=== PATIENT | female | born 1955 | race Caucasian/White ===

== ENCOUNTER 2016-08-05 08:25 | Inpatient (IN) | payer OTHER ==
[2016-06-13 13:14] VITALS: BMI 28.0
--- NOTE | 2016-06-13 13:44 | PAT Medication Instructions ---
Service Date June 13, 2016. Current Home Medication List Albuterol Hfa (Ventolin Hfa), 2-4 PUFFS INH Q6H Amlodipine Besylate-Benazepril (Amlodipine Besylate/Benaz), 1 CAP PO QAM Celecoxib (CeleBREX), 200 MG PO BID Duloxetine Hcl (Cymbalta), 90 MG PO QAM Estrogens, Conjugated (Premarin), 0.625 MG PO QAM Eszopiclone (Lunesta), 3 MG PO HS Hydrochlorothiazide (Hctz), 25 MG PO QAM Ipratropium-Albuterol (Combivent Respimat), 1 PUFFS INH QID PRN for PRN Melatonin (Melatonin Maximum Strengt), 20 MG PO HS Metformin Hcl (Glucophage), 1,000 MG PO BID Metoprolol Tartrate (Lopressor) (Lopressor), 50 MG PO BID Oxycodone/Acetaminophen 10MG/325MG (Percocet 10MG/325MG), 1 TAB PO 6XDAY PRN for Pain Pregabalin (Lyrica), 200 MG PO TID Simvastatin (Zocor), 20 MG PO QPM Tizanidine (Zanaflex), 4 MG PO TID PRN for RN [Vitamin B12], 50 MCG PO QAM Medication Instructions For Your Scheduled Surgery - Hold the following medications 48 hours prior to surgery: Metformin Hcl (Glucophage), 1,000 MG PO BID - Hold the following medications the morning of surgery: [Vitamin B12], 50 MCG PO QAM Hydrochlorothiazide (Hctz), 25 MG PO QAM Tizanidine (Zanaflex), 4 MG PO TID PRN Amlodipine Besylate-Benazepril (Amlodipine Besylate/Benaz), 1 CAP PO QAM Celecoxib (CeleBREX), 200 MG PO BID (otherwise okay to continue per surgeon) - Take the following medications the morning of surgery with a sip of water OTHERWISE NOTHING TO EAT OR DRINK AFTER MIDNIGHT: Albuterol Hfa (Ventolin Hfa), 2-4 PUFFS INH Q6H (use if needed; BRING TO HOSPITAL) Duloxetine Hcl (Cymbalta), 90 MG PO QAM Metoprolol Tartrate (Lopressor) (Lopressor), 50 MG PO BID Oxycodone/Acetaminophen 10MG/325MG (Percocet 10MG/325MG), 1 TAB PO 6XDAY PRN for Pain (may take if needed up to 4 hours prior to surgery) Estrogens, Conjugated (Premarin), 0.625 MG PO QAM Ipratropium-Albuterol (Combivent Respimat), 1 PUFFS INH QID PRN Pregabalin (Lyrica), 200 MG PO TID - Take the following medications as scheduled the night before surgery: Melatonin (Melatonin Maximum Strengt), 20 MG PO HS Simvastatin (Zocor), 20 MG PO QPM Eszopiclone (Lunesta), 3 MG PO HS Tizanidine (Zanaflex), 4 MG PO TID PRN Albuterol Hfa (Ventolin Hfa), 2-4 PUFFS INH Q6H Metoprolol Tartrate (Lopressor) (Lopressor), 50 MG PO BID Oxycodone/Acetaminophen 10MG/325MG (Percocet 10MG/325MG), 1 TAB PO 6XDAY PRN for Pain Ipratropium-Albuterol (Combivent Respimat), 1 PUFFS INH QID PRN Pregabalin (Lyrica), 200 MG PO TID If you have any questions please call us at [phone] or [phone] or [phone]
[2016-06-13 14:36] LABS: BASO % 0.5 %; BASO ABS # 0.04 K/uL (0-0.2); COMPLETE YES; EOS % 2.8 %; HEMATOCRIT 41.4 % (37-47); IG% 0.3 %; LYMPH % 43.1 %; LYMPH ABS # 3.27 K/uL (1.2-3.4); MEAN CELL VOLUME 94.5 fL (80-100); MEAN CORPUSCULAR HEMOGLOBIN 30.8 pg (25-34); MEAN CORPUSCULAR HGB CONC 32.6 g/dl (32-36); MONO % 5.3 %; PLATELET COUNT 276 K/uL (130-400); RED BLOOD COUNT 4.38 M/uL (4.2-5.4); WHITE BLOOD COUNT 7.59 K/uL (4.8-10.8)
[2016-06-13 14:43] LABS: INR 0.9 (0.9-1.1); PROTHROMBIN TIME (PATIENT) 10.1 SECONDS (9.0-12.0)
[2016-06-13 15:00] LABS: ESTIMATED AVERAGE GLUCOSE 140 mg/dl; HA1C FLAG Normal (Normal)
[2016-06-13 15:10] LABS: BUN/CREATININE RATIO 18.4 (10-20); CALCIUM 9.3 mg/dl (8.5-10.1); CREATININE 0.82 mg/dl (0.60-1.20); POTASSIUM 4.8 mmol/L (3.5-5.1)
--- NOTE | 2016-07-31 22:10 | HISTORY & PHYSICAL EXAMINATION ---
DATE OF ADMISSION: 08/05/2016 CHIEF COMPLAINT: Right knee pain. HISTORY OF PRESENT ILLNESS: The patient is a 61-year-old female from [place] and referred by Dr. Rosen for treatment of her right knee. She has got a long history of right knee pain and discomfort. Describes it has gotten worse over the years. She has been treated with injections, which helped for about a day or two anymore. Pain is chronic. The more she walks, the more it hurts. It is diffusely pain in her knee. She had her left knee replaced 6 years ago and has done well with this and would like to have her right knee replaced. Of note, the patient does have some chronic hip and back pain as well. PAST MEDICAL HISTORY: Significant for 1. Diabetes with a hemoglobin A1c of 6.5. 2. COPD. 3. Hypertension. 4. Elevated cholesterol. 5. Arthritis. 6. Smoking history. PAST SURGICAL HISTORY: Includes; 1. x3. 1. Left knee replacement 6-7 years ago. 2. Herniorrhaphy x3. 3. Cholecystectomy. 4. Carpal tunnel release. ALLERGIES: LATEX. CURRENT MEDICINES: Include: 1. Metformin 1000 mg twice a day. 2. Amlodipine/benazepril 5/20 once a day. 3. Metoprolol 5 mg twice a day. 4. Simvastatin 20 mg a day. 5. Lyrica 200 mg 3 times a day. 6. Premarin 0.625 mg a day. 7. Duloxetine 30 mg a day. 8. Hydrochlorothiazide 25 mg a day. 9. Celebrex 200 mg twice a day. 10. Oxycodone/Tylenol 10/325 up to 6 times daily. 11. Lunesta 3 mg at bedtime. 12. Zanaflex 4 mg 3 times a day. SOCIAL HISTORY: A 61-year-old female. She is from [place]. She is . Rare alcohol intake. Three children. FAMILY HISTORY: Significant for diabetes. REVIEW OF SYSTEMS: Significant for diabetes. Hemoglobin A1c is 6.5. Denies any chest pain or shortness of breath. No history of DVT or PE. PHYSICAL EXAMINATION: GENERAL: Reveals this is a healthy pleasant, middle-aged female. She looks in reasonably good health. HEENT: Benign. NECK: Supple. No lymphadenopathy. LUNGS: Clear to auscultation. HEART: Regular rate and rhythm. ABDOMEN: Soft, nontender, nondistended. EXTREMITIES: Grossly neurovascularly intact except as follows: Examination of the right knee reveals the patient ambulates with a slight bit of a limp. She has got varus alignment to her knee. Range of motion about 5-120. No instability. She can do a straight leg raise. X-RAYS: X-rays of the right knee were reviewed. It shows advanced right knee DJD. She has got complete loss of her medial joint space. She has got sclerosis in medial femoral condyle. She does have some bony deficiency of the medial tibial plateau. These look like longstanding disease. ASSESSMENT: A 61-year-old female status post left knee replacement 6-7 years ago with advanced right knee degenerative joint disease. She has failed conservative treatment and would like have her right knee replaced. PLAN: We are going to take her to the operating room and do a right total knee replacement. The risks and benefits of this procedure were explained to the patient including but not limited to DVT, PE, , infection, neurological injury, vascular injury, bleeding problems, pain, limited range of motion, stiffness, failure to relieve symptoms, incomplete relief of symptoms, need for further surgery in the future, fracture, leg length inequality, nerve palsy, persistent pain, need for revision surgery, etc. The patient understands and desires to proceed. Informed consent was obtained. As far as the medicines we talked about holding her benazepril the morning of surgery and her metformin 2 days preoperatively. She will take metoprolol the morning of surgery. We will also encourage her to get off her narcotics. She may need a nicotine patch in the hospital. As far as discharge plans, she is planning to be discharged to home using [facility] home health program. Her can assist in her care. JACKIE
[2016-08-05] VITALS (9 sets, daily range): BP systolic 115–155; BP diastolic 70–91; PULSE 65–76; TEMP 36.4–36.8; O2SAT 93–97; Ht 165.1 cm; Wt 77.5 kg
[~2016-08-05] VITALS: Ht 165.1 cm; Wt 77.5 kg
[~2016-08-05 08:25] MED LIST: ACETAMINOPHEN 500 MG TAB PO SCH; AMLO5CAP3 PO; BUPIVACAINE 0.25% 30 ML VIAL ONE; BUPIVACAINE 0.5 % 5 MG/1 ML PF 10ML VIAL ONE; CEFAZOLIN 2000 MG/60 ML D5W 60 ML IV SCH; CLB/200 PO; DULO60CA44 PO; ESZO1TAB16 PO; FAMOTIDINE 20 MG TAB PO SCH; GABAPENTIN 300 MG CAP PO SCH; HYDR25TA4 PO; IPRA1AER2 INH; LACTATED RINGER'S 1000ML 1,000 ML IV SCH; LACTATED RINGER'S 1000ML 500 ML IV ONE; MELATAB2 PO; METF-384 PO; METO50TA16 PO; METOCLOPRAMIDE HCL 10 MG TAB PO SCH; OXYC-106 PO; PREG200C PO; PRM625 PO; SCOPOLAMINE 1.5 MG TDSY TD SCH; SIMV20TA2 PO; TIZA4CAP PO; TRANEXAMIC ACID INJ 1,000 MG in SODIUM CHLORIDE 0.9% 100ML 100 ML IV SCH; VITAMIN B12 PO; VNTHFA/IN INH
--- NOTE | 2016-08-05 08:39 | History & Physical Bridge Note ---
H&P Re-Evaluation Bridge Note: I have examined the patient, reviewed the History & Physical and in the interval since the performance of the History & Physical I have noted the following changes of clinical significance: No changes noted
[2016-08-05] MEDS ORDERED: MIDAZOLAM HCL 1 MG/ML 2ML VIAL ONE ×2 (09:52→10:16)
[2016-08-05] MEDS ORDERED: FENTANYL CITRATE INJ 50 MCG/1 ML 2 ML VIAL ONE ×2 (09:52→10:16)
[2016-08-05] MEDS ORDERED: SODIUM CHLORIDE 0.9% PF 50 ML VIAL ONE (10:18)
[2016-08-05] MEDS ORDERED: BUPIVACAINE/EPINEPHRINE 0.25% 1:200,000 30 ML VIAL ONE (10:18)
[2016-08-05] MEDS ORDERED: ORTHO JOINT ANESTHETIC ONE (10:19)
[2016-08-05] MEDS ORDERED: BUPIVACAINE LIPOSOME 1/3% 266 MG/20 ML VIAL INFIL ONE (10:19)
[2016-08-05] MEDS ORDERED: ONDANSETRON INJ 2 MG/ML 2 ML VIAL IV PRN ×2 (10:45→12:30)
[2016-08-05] MEDS ORDERED: ATROPINE SULFATE 0.1 MG/ML 5ML SYR IV PRN (10:45)
[2016-08-05] MEDS ORDERED: EpHEDrine SULFATE INJ 50 MG/ML AMP IV PRN (10:45)
[2016-08-05] MEDS ORDERED: FENTANYL CITRATE INJ 50 MCG/1 ML 2 ML VIAL IV PRN (10:45)
[2016-08-05] MEDS ORDERED: PROPOFOL IV EMULSION 10 MG/ML 20 ML VIAL IV ONE (11:05)
[2016-08-05] MEDS: BUPIVACAINE LIPOSOME 266 MG, BUPIVACAINE/EPINEPHRINE INJ 50 ML, SODIUM CHLORIDE 0.9% PF... INFIL SCH ×6 (12:04→12:05)
[2016-08-05] MEDS: BACITRACIN 50000 UNIT VIAL ONE ×2 (12:04→12:22)
--- NOTE | 2016-08-05 12:28 | [facility] Post Operative Brief Note ---
Immediate Operative Summary Operative Date Aug 05, 2016. Pre-Operative Diagnosis Right Knee, Degenerative Joint Disease Post-Operative Diagnosis Same as preoperative Procedure(s) Performed Right Total Knee Arthroplasty Surgeon Dr. Robin Smith Odd Job Worker Surgeon(s) Jeremiah Faust PA-C Estimated Blood Loss 50ml Findings Right Knee DJD Fluids (cc crystalloids) 1000 cc Specimens A.) Right Knee Bone and Tissue Drains None Anesthesia Spinal Complication(s) None Disposition Recovery Room / PACU
[2016-08-05] MEDS ORDERED: MoRPHine SULFATE 2 MG/ML CARP IV PRN (12:30)
[2016-08-05] MEDS ORDERED: ALBUTEROL HFA 8 GM INHALER INH PRN (12:30)
[2016-08-05] MEDS ORDERED: ZOLPIDEM TARTRATE 5 MG TAB PO PRN (12:30)
[2016-08-05] MEDS ORDERED: ALUMINUM/MAGNESIUM/SIMETH (MAALOX MAX) 30 ML UDC PO PRN (12:30)
[2016-08-05] MEDS ORDERED: MAGNESIUM HYDROXIDE SUSP 30 ML UDC PO PRN (12:30)
[2016-08-05] MEDS ORDERED: SILVER SULFADIAZINE 1% CR 50 GM JAR EXT PRN (12:30)
[2016-08-05] MEDS ORDERED: DiphenhydrAMINE HCL 50 MG/ML VIAL IV PRN (12:30)
[2016-08-05] MEDS ORDERED: IPRATROPIUM BROMIDE/ALBUTEROL respimat INH INH PRN (12:30)
[2016-08-05] MEDS ORDERED: METOCLOPRAMIDE HCL INJ 5 MG/ML 2 ML VIAL IV PRN (12:30)
[2016-08-05] MEDS ORDERED: BISACODYL 10 MG SUPP PR PRN (12:30)
--- NOTE | 2016-08-05 12:58 | DIAGNOSTIC IMAGING REPORT ---
RIGHT KNEE 1 OR 2 VIEWS ROUTINE CLINICAL HISTORY: Right knee degenerative joint disease. Arthroplasty. COMPARISON: Right knee radiographs May 22, 2016. FINDINGS: Alignment of the total right knee arthroplasty is anatomic. There is no periprosthetic fracture or unexpected radiopaque foreign body. There are skin aleah. IMPRESSION: Expected findings following total right knee arthroplasty. Electronically signed by: Ascencion Aviles M.D. 08/05/2016 12:57 PM Dictated Date/Time: 08/05/2016 12:56 PM
--- NOTE | 2016-08-05 13:38 | Anesthesiology Progress Note ---
Anesthesia Post Op Note Date & Time Aug 05, 2016 at 13:38 Vital Signs Pain Intensity: 0 Vital Signs Past 12 Hours Date Time Temp Pulse Resp B/P (MAP) Pulse Ox O2 Delivery O2 Flow Rate FiO2 08/05/16 13:30 64 12 106/66 94 Nasal Cannula 3 08/05/16 13:20 62 12 94/65 (79) 94 Nasal Cannula 2 08/05/16 13:10 61 12 100/59 (75) 92 Nasal Cannula 2 08/05/16 13:00 63 12 95/64 (74) 92 Nasal Cannula 2 08/05/16 12:50 66 12 113/72 92 Nasal Cannula 2 08/05/16 12:40 63 13 126/74 94 Nasal Cannula 2 08/05/16 12:34 36.7 68 15 124/73 94 Nasal Cannula 2 08/05/16 10:35 68 16 93 Room Air 08/05/16 08:54 36.4 65 20 152/91 93 Room Air Notes Mental Status: alert / awake / arousable, participated in evaluation Pt Amnestic to Procedure: Yes Nausea / Vomiting: adequately controlled Pain: adequately controlled Airway Patency, RR, SpO2: stable & adequate BP & HR: stable & adequate Hydration State: stable & adequate Neuraxial Anesthesia: was administered, sensory block is resolving Anesthetic Complications: no major complications apparent
[2016-08-05] MEDS: SODIUM CHLORIDE 0.9% 1000ML 1,000 ML IV SCH ×2 (14:53→21:34)
[2016-08-05] MEDS: PREGABALIN 100 MG CAP PO SCH ×2 (14:53→21:12)
[2016-08-05] MEDS: OXYCODONE HCL IR 5 MG TAB (IMMEDIATE RELEASE) PO PRN (15:12)
[2016-08-05] MEDS: KETOROLAC TROMETHAMINE 15 MG/ML VIAL IV. SCH ×2 (16:10→21:13)
[2016-08-05] MEDS: ACETAMINOPHEN 500 MG TAB PO SCH (17:28)
[2016-08-05] MEDS: FERROUS GLUCONATE 324 MG TAB PO SCH (17:29)
[2016-08-05] MEDS ORDERED: PHARMACY GLYCEMIC MGMT CONSULT PRN (17:30)
[2016-08-05] MEDS ORDERED: GLUCAGON FOR INJ 1 MG VIAL SQ PRN (17:30)
[2016-08-05] MEDS ORDERED: GLUCOSE 40% GEL 15 GM TUBE PO PRN (17:30)
[2016-08-05] MEDS ORDERED: DEXTROSE 50% 50 ML SYR IV PRN (17:30)
[2016-08-05] MEDS ORDERED: GLUCOSE 10 TABS/TUBE PO PRN (17:30)
[2016-08-05] MEDS: CEFAZOLIN IV 1,000 MG in DEXTROSE 5% 50ML 50 ML IV SCH (17:59)
[2016-08-05] MEDS ORDERED: TRANEXAMIC ACID INJ 1,000 MG in SODIUM CHLORIDE 0.9% 100ML 100 ML IV SCH (18:00)
[2016-08-05] MEDS: INSULIN ASPART 100 UNITS/ML 3 ML PEN SC SCH ×2 (18:03→21:00)
--- NOTE | 2016-08-05 20:30 | Pharmacy Progress Note ---
Glycemic Control Intl Consult Date of Service Aug 05, 2016. Scope Glycemic Pharmacist consulted by on 08/05/16 for glycemic control and to write orders per [facility] inpatient glycemic control protocol Objective Weight (Kilograms): 77.500 Accuchecks BSG (last 24hrs): Test 08/05/16 08:45 08/05/16 12:42 08/05/16 17:07 Bedside Glucose 131 mg/dl (70-90) 116 mg/dl (70-90) 247 mg/dl (70-90) Recent Pertinent Medications Outpatient Anti-diabetic Regimen: * Metformin 1gm BIDM * A1c = 6.5 % from 06/13/16 Risk Factors for Insulin Resistance: * Infection: Ancef periop prophylaxis * IVF: NS at 100 ml/hr * Recent Surgery: POD 0, s/p R TKA * Diet: DM2 Assessment & Plan ASSESSMENT: * ADA & AACE recommend a goal blood sugar range 140-180 mg/dl for the majority of critically ill & non-critically ill patients. However, more stringent targets may be selected in individual cases. * 61 yo female admitted s/p R TKA today by Dr. Smith. * BSGs have spiked post-operatively from 116 to 247 mg/dl. No documented doses of steroids given. * A1c is 6.5% on Metformin alone so she is likely sensitive to insulin. * Will use weight based dosing for Novolog and add an overnight check. * Will add Lantus x 1 tonight BSG > 200 mg/dl. PLAN FOR INPATIENT GLYCEMIC CONTROL: * If BSG > 200 mg/dl then given Lantus 10 units SQ x 1 tonight * Novolog ACHS + 02 * Set correction factor to 30 mg/dl/unit * Set carb ratio to 1 unit per 10 grams CHO consumed * Set goal range to Low 110 mg/dL - High 150 mg/dL * Please note that the plan above was derived based on current level of insulin resistance and hospital stress. These recommendations are appropriate for inpatient admission only. Plan of care upon discharge will need to be reassessed to avoid potential outpatient hypo/hyperglycemia. Thank you.
[2016-08-05] MEDS ORDERED: MELATONIN 20 MG PO SCH (21:00)
[2016-08-05] MEDS: TAPENTADOL ER 50 MG TABCR PO SCH (21:00)
[2016-08-05] MEDS: METOPROLOL TARTRATE 50 MG TAB PO SCH (21:09)
[2016-08-05] MEDS: ASPIRIN 81 MG ECTAB PO SCH (21:10)
[2016-08-05] MEDS: SIMVASTATIN 20 MG TAB PO SCH (21:11)
[2016-08-05] MEDS: SENNA 8.6 MG TAB PO SCH (21:11)
[2016-08-05] MEDS: ESZOPICLONE 3 MG TAB PO SCH (21:12)
[2016-08-05] MEDS: DOCUSATE SODIUM 100 MG CAP PO SCH (21:12)
[2016-08-05] MEDS ORDERED: FRRG PO (21:29)
[2016-08-05] MEDS ORDERED: MORP-157 PO (21:29)
[2016-08-05] MEDS ORDERED: RXC5 PO (21:29)
[2016-08-05] MEDS ORDERED: ASPEC81 PO (21:29)
[2016-08-05] MEDS ORDERED: ACET-24 PO (21:29)
--- NOTE | 2016-08-05 21:32 | Discharge Instructions ---
Discharge Instructions Date of Service Aug 05, 2016. Admission Reason for Admission: Right Knee Degenerative Joint Disease Discharge Discharge Diagnosis / Problem: Right Knee Replacment Discharge Goals Goal(s): Decrease discomfort, Improve function, Increase independence, Improve disease control, Therapeutic intervention Activity Recommendations Activity Limitations: per Instructions/Follow-up section Weightbearing Status: Right weightbearing . Instructions / Follow-Up Instructions / Follow-Up ACTIVITY RECOMMENDATIONS: Physical Therapy: * You will go to physical therapy three times each week for four to six weeks after your surgery in order to regain your knee range of motion and to retrain your knee to work properly. * It is just as important to make sure you are getting your knee perfectly straight as it is to regain your knee bend. * Taking a pain pill an hour before therapy can help you have a more productive and comfortable therapy session. Home Exercise: * You were shown a series of exercises (heel props, heel slides, etc.) in the hospital. Do these exercises three to four times each day including the exercises you were shown in physical therapy. Walking: * Get up and walk several times each day. For the first four weeks, try not to stand or walk for more than one hour at a time. If you do stand or walk for more than one hour, you will not hurt anything, but your knee and leg will likely swell. * As you feel comfortable, you may change from the walker or crutches to a cane and then to independent walking. MEDICATIONS: New Medicine: * You will likely be taking one or more of these medications: 1. MS Contin - A long-acting pain medication. Take 1 tablet twice a day for the first ten days to decrease your baseline level of pain. 2. Oxycodone - A quick and shorter-acting pain medication. Take one to two tablets every four to six hours to lessen your pain. 3. Iron Sulfate - Take three times each day for the month after surgery to help you replace the blood lost during surgery. 4. Aspirin - Thins your blood to lessen the chance of forming a blood clot. * The most common side effects of pain medicine and iron are nausea and constipation. If nausea or constipation is too much of a problem or if you have any questions about your new medicines or doses, call [facility] at . We will try to help you manage these issues. VERY IMPORTANT TO READ AND REVIEW" Pain: * The immediate post-operative period after knee replacement surgery is often quite painful. * You are given a prescription for pain medicine. You should take it, as directed, when you need it, especially before physical therapy and before going to bed. Pain that interferes with sleep is very common and can last several months. * You will likely need pain medicine for the first four to six weeks. It will not stop all of the pain. The pain will lessen and as you feel better, you may change to milder pain medicine such as Tylenol. * The most common side effects of pain medicine are nausea and constipation, so don't take more than you need. SPECIAL CARE INSTRUCTIONS: TEDs/Elastic Stockings: * The white elastic stockings help limit swelling and prevent blood clots from forming in your legs. The more you wear them, the more they work. * Wear them for six weeks after knee replacement surgery and four weeks after partial knee replacement. Prevention of Infection: * Take antibiotics one hour before any dental cleaning, dental work, urological procedure, gastrointestinal procedure or any invasive surgery in order to prevent your new joint from getting infected. * You may get the antibiotics from the doctor performing the procedure or you may call our office at before and we will call in a prescription to the pharmacy of your choice. Things to Watch For: * Drainage from the incision site that occurs more than one week after your surgery. * Severely increased knee/leg pain or swelling. * Increased redness at the incision site. * Fever above 102 degrees Fahrenheit. * Unusual chest pain or shortness of breath. * Unusual pain or burning with urination. Call [facility] at with any of the above problems or if you have any questions about your medicines or recovery. FOLLOW UP VISIT: Make an appointment to see your doctor for approximately two weeks after surgery for a progress check and staple removal by calling the office at . Current Hospital Diet Patient's current hospital diet: Diabetes Type 2 Diet Discharge Diet Recommended Diet: Diabetes Type 2 Diet Procedures Procedures Performed: Right Total Knee Arthroplasty Pending Studies Studies pending at discharge: no Laboratory Results Hemoglobin A1c Test 06/13/16 13:51 Range/Units Estimated Average Glucose 140 mg/dl Hemoglobin A1c 6.5 H 4.5-5.6 % Medical Emergencies . Who to Call and When: Medical Emergencies: If at any time you feel your situation is an emergency, please call 911 immediately. . Non-Emergent Contact Non-Emergency issues call your: Surgeon . "Provider Documentation" section prepared by Robin Smith. . VTE Core Measure Inpt VTE Proph given/why not?: Other Anticoagulation, T.E.D. Stockings, SCD's
[2016-08-06] MEDS: CEFAZOLIN IV 1,000 MG in DEXTROSE 5% 50ML 50 ML IV SCH (01:51)
[2016-08-06] MEDS: ACETAMINOPHEN 500 MG TAB PO SCH ×3 (01:51→17:29)
[2016-08-06] MEDS ORDERED: INSULIN ASPART 100 UNITS/ML 3 ML PEN SC ONE (02:00)
[2016-08-06] MEDS: OXYCODONE HCL IR 5 MG TAB (IMMEDIATE RELEASE) PO PRN ×3 (02:17→12:43)
[2016-08-06 04:00] VITALS: BP 106/68; PULSE 62; TEMP 36.8; O2SAT 93
[2016-08-06] MEDS: KETOROLAC TROMETHAMINE 15 MG/ML VIAL IV. SCH ×4 (04:17→22:11)
[2016-08-06 05:58] LABS: HEMATOCRIT 35.5 % (37-47); MEAN CELL VOLUME 95.9 fL (80-100); MEAN CORPUSCULAR HEMOGLOBIN 29.5 pg (25-34); MEAN CORPUSCULAR HGB CONC 30.7 g/dl (32-36); MEAN PLATELET VOLUME 11.1 fL (7.4-10.4); PLATELET COUNT 245 K/uL (130-400); WHITE BLOOD COUNT 8.31 K/uL (4.8-10.8)
[2016-08-06 06:34] LABS: BUN/CREATININE RATIO 20.7 (10-20); CALCIUM 8.1 mg/dl (8.5-10.1); CREATININE 0.92 mg/dl (0.60-1.20); POTASSIUM 4.9 mmol/L (3.5-5.1)
[2016-08-06 07:15] VITALS: BP 120/80; PULSE 55; TEMP 36.7; O2SAT 96
--- NOTE | 2016-08-06 08:10 | Anesthesiology Progress Note ---
Anesthesia Post Op Note Date & Time Aug 06, 2016 at 08:10 Vital Signs Vital Signs Past 12 Hours Date Time Temp Pulse Resp B/P (MAP) Pulse Ox O2 Delivery O2 Flow Rate FiO2 08/06/16 07:20 Room Air 08/06/16 07:15 36.7 55 16 120/80 (93) 96 Room Air 08/06/16 04:00 36.8 62 18 106/68 (81) 93 Room Air 08/05/16 23:52 Room Air 08/05/16 23:20 36.8 72 16 128/75 (92) 93 Room Air 08/05/16 21:53 36.7 66 16 155/79 (104) 94 Room Air Notes Mental Status: alert / awake / arousable, participated in evaluation Pt Amnestic to Procedure: Yes Nausea / Vomiting: adequately controlled Pain: adequately controlled Airway Patency, RR, SpO2: stable & adequate BP & HR: stable & adequate Hydration State: stable & adequate Neuraxial Anesthesia: was administered, sensory block resolved Anesthetic Complications: no major complications apparent
[2016-08-06] MEDS: TAPENTADOL ER 50 MG TABCR PO SCH ×2 (08:35→22:01)
[2016-08-06] MEDS: ENALAPRIL MALEATE 10 MG TAB PO SCH (08:36)
[2016-08-06] MEDS: AMLODIPINE BESYLATE 5 MG TAB PO SCH (08:36)
[2016-08-06] MEDS: ASPIRIN 81 MG ECTAB PO SCH ×2 (08:37→21:00)
[2016-08-06] MEDS: HYDROCHLOROTHIAZIDE 25 MG TAB PO SCH (08:37)
[2016-08-06] MEDS: METOPROLOL TARTRATE 50 MG TAB PO SCH ×2 (08:37→22:03)
[2016-08-06] MEDS: CYANOCOBALAMIN 100 MCG TAB (VIT B-12) PO SCH (08:37)
[2016-08-06] MEDS: DOCUSATE SODIUM 100 MG CAP PO SCH ×2 (08:37→22:01)
[2016-08-06] MEDS: FERROUS GLUCONATE 324 MG TAB PO SCH ×3 (08:37→17:29)
[2016-08-06] MEDS: NICOTINE 14 MG/24 HR TDSY TD SCH (08:37)
[2016-08-06] MEDS: MULTIVITAMIN TAB PO SCH (08:37)
[2016-08-06] MEDS: PANTOprazole SOD 40 MG TAB PO SCH (08:39)
[2016-08-06] MEDS: DULOXETINE HCL 60 MG CAP PO SCH (08:40)
[2016-08-06] MEDS: DULOXETINE (CYMBALTA) 30 MG CAP PO SCH (08:40)
[2016-08-06] MEDS: SODIUM CHLORIDE 0.9% 1000ML 1,000 ML IV SCH (08:41)
[2016-08-06] MEDS: INSULIN ASPART 100 UNITS/ML 3 ML PEN SC SCH ×4 (08:45→22:07)
[2016-08-06] MEDS: PREGABALIN 100 MG CAP PO SCH ×3 (08:47→22:00)
--- NOTE | 2016-08-06 09:44 | OPERATIVE REPORT ---
DATE: 08/05/2016 PREOPERATIVE DIAGNOSIS: Right knee DJD. POSTOPERATIVE DIAGNOSIS: Same. PROCEDURE PERFORMED: Right cemented posterior stabilized total knee arthroplasty. SURGEON: Robin Smith M.D. ELECTRICAL LOGGING OPERATOR: Jeremiah Faust PA-C. COMPLICATIONS: None. ESTIMATED BLOOD LOSS: 50 cc. FLUID REPLACEMENT: 1000 cc of crystalloid fluid replacement. ANESTHESIA: Spinal with adductor canal block. DRAINS: None. SPECIMENS: Right knee sent for pathology. OPERATIVE INDICATIONS: The patient is a 61-year-old female who has had a fairly long history of knee pain and discomfort. She underwent a left knee replacement six years ago and struggled quite a bit. She developed progressive and persistent pain in the right knee. She put this off as long as possible but has now elected to proceed with total knee arthroplasty. OPERATIVE FINDINGS: Operative findings reveal advanced right knee DJD. She had extensive grade 4 [id number] disease in the medial femoral condyle and medial tibial plateau. She had a very large knee joint effusion. There was some inflammatory appearance to the effusion. Fairly mild. Some moderate synovitis. OPERATIVE IMPLANTS: 1. Biomet Vanguard size 62 1/2 right posterior stabilized femoral component. 2. Biomet size 63 tibial tray. 3. 10 mm posterior stabilized polyethylene insert. 4. 28 x 8 all poly patella. OPERATIVE PROCEDURE: The patient was taken to the operating room, identified and placed on the operating room table in supine position. All contact areas were appropriately padded. IV antibiotics were provided by anesthesia team. A spinal anesthetic and adductor canal block had been provided in the holding area. Meier catheter was placed in a sterile fashion. Right thigh tourniquet was then placed and the right lower extremity was then prepped and draped in the usual sterile fashion. The right leg was elevated and exsanguinated with Esmarch and the tourniquet was placed at 300 mm mercury. An anterior approach to the right knee was then performed through a longitudinal incision centered over the patella. Sharp dissection was carried through the subcutaneous tissue down to the level of the extensor mechanism. Medial parapatellar arthrotomy incision was made. Some periperiosteal dissection was carried out medially. The fat pad was resected from beneath the patellar tendon. Lateral patellofemoral ligament was released. Patella was everted the knee was flexed. The osteophytes were taken off the distal femur. The ACL and PCL were then released from the distal femur and the tibia was subluxated anteriorly. The external tibial alignment jig was then placed in the anterior face of the tibia and adjusted 16 mm medially. Proximal tibial cut was made to remove about 2 mm of bone from the most efficient aspect of the medial tibial plateau. Tibia was then sized to a size 63. Attention was then drawn to the femur. The distal femur was entered with a sharp drill bit and the intramedullary canal was suctioned. A right 5 degree valgus cutting guide was placed. Distal femoral cutting block was pinned in place. Distal femoral cut was made to take an additional 3 mm of bone off the distal femur. The femur was then sized to a size 62.5. This sized almost exactly to a 62.5. The AP cutting block was pinned parallel to the epicondylar axis which was 3 degrees of external rotation. The anterior cut, anterior chamfer cut, posterior cut, and posterior chamfer cuts were made. A box cutting guide was placed and adjusted slight lateral and the box cut was made. The knee was flexed. The remnants of the medial and lateral menisci were excised. The osteophytes were taken off the posterior aspect of the femur. A trial femoral component was placed. Tibial tray was pinned in maximum external rotation and the drill and stem punch were used to create a defect in the proximal tibia for the tibial tray. The knee was then trialed and the 10 mm insert fit most appropriately. Attention was then drawn to the patella. The patella was cleaned of all soft tissues. The patella thickness measured 23 mm and was cut down to 13. It was sized to a size 28 patella. Lug holes were drilled for a 28 patella. Lateral osteophytes were removed. Patella button was placed. The knee was taken through range of motion. The patella tracked nicely with no thumbs test. Attention was then drawn toward placing the permanent components. All trial components were removed. A bone plug was placed in the distal femur to limit blood loss. A double batch of Palacos G cement was mixed. A right size 62.5 posterior stabilized femoral component, size 63 tibial tray, 10 mm posterior stabilized polyethylene insert, and a 28 x 8 all poly patella were then cemented into place. The knee was brought into full extension until the cement hardened. A final cement check was then performed. The buried capsular tissues were injected with 100 cc of combination of 20 cc of Exparel, 30 cc of normal saline, 50 cc of 0.25% Marcaine with epinephrine. The patient did receive 1 gm of tranexamic acid and the tourniquet was then let down for a final tourniquet time of 55 minutes. Hemostasis was assured with the use of electrocautery. The extensor mechanism was closed with a combination of #1 PDS suture and #1 Vicryl suture in a [id number] fashion. Extensor mechanism was checked and found to be intact. The subcutaneous tissues were then closed with 2 Dexon suture in buried interrupted fashion. Skin was closed with skin aleah. Leg was then clean, dried and sterile dressing of Xerform, 4x4's, sterile cast padding and an Angel bandage were applied. The patient was then transferred to the recovery room in stable condition. The patient tolerated the procedure well and there were no complications. All needle, instrument and sponge counts were correct at the end of the operation.
--- NOTE | 2016-08-06 10:26 | Orthopedic Progress Note ---
Orthopedic Progress Note Date of Service Aug 06, 2016. Subjective Post OP Day: 1 Reports: feeling well Additional Notes: Pain controlled. Mostly thigh discomfort. No chest pain or SOB. Objective calves soft nontender, N/V intact, capillary refill less than 2 sec., dressing C /D/I, toes mobile, CMS intact Date Time Temp Pulse Resp B/P (MAP) Pulse Ox O2 Delivery O2 Flow Rate FiO2 08/06/16 07:20 Room Air 08/06/16 07:15 36.7 55 16 120/80 (93) 96 Room Air 08/06/16 04:00 36.8 62 18 106/68 (81) 93 Room Air 08/05/16 23:52 Room Air 08/05/16 23:20 36.8 72 16 128/75 (92) 93 Room Air 08/05/16 21:53 36.7 66 16 155/79 (104) 94 Room Air 08/05/16 20:10 Room Air 08/05/16 17:03 36.7 76 16 143/81 (101) 96 Nasal Cannula 3.0 08/05/16 16:02 36.7 69 16 141/82 (101) 97 Nasal Cannula 3.0 08/05/16 15:05 36.7 66 16 138/82 (100) 97 Nasal Cannula 3.0 08/05/16 14:45 66 18 118/76 (90) 96 08/05/16 14:00 36.5 68 16 115/70 (85) 95 Nasal Cannula 3.0 08/05/16 14:00 95 Nasal Cannula 3.0 08/05/16 14:00 95 Nasal Cannula 3.0 08/05/16 13:40 37.0 67 12 131/72 94 Nasal Cannula 3 08/05/16 13:30 64 12 106/66 94 Nasal Cannula 3 08/05/16 13:20 62 12 94/65 (79) 94 Nasal Cannula 2 08/05/16 13:10 61 12 100/59 (75) 92 Nasal Cannula 2 08/05/16 13:00 63 12 95/64 (74) 92 Nasal Cannula 2 08/05/16 12:50 66 12 113/72 92 Nasal Cannula 2 08/05/16 12:40 63 13 126/74 94 Nasal Cannula 2 08/05/16 12:34 36.7 68 15 124/73 94 Nasal Cannula 2 08/05/16 10:35 68 16 93 Room Air Laboratory Results 24 Hours: Test 08/06/16 05:37 Hematocrit 35.5 % Hemoglobin 10.9 g/dL Assessment & Plan Assessment: POD #1 from Right TKR. Doing well. Plan: 1.) DVT Prophylaxis - TEDS, SCDs, and ASA - 81mg BID 2.) PT/OT - Right TKR Protocol 3.) Pain control - doing well with current pain regimine. 4.) Disposition - Plan to D/C to home with Home Health once recovered. Discharge Planning Discharge Planning: home with home health Pain Management: PO Tylenol, Oxy IR DVT Prophylaxis: TEDs, SCDs, other Therapy: Physical Therapy, Occupational Therapy
[2016-08-06 11:15] VITALS: BP 125/72; PULSE 62; TEMP 36.5; O2SAT 99
--- NOTE | 2016-08-06 13:54 | Pharmacy Progress Note ---
Glycemic Control Progress Note Date of Service Aug 06, 2016. Scope Glycemic Pharmacist consulted for glycemic control to write orders per [facility] inpatient glycemic control protocol. Objective Accuchecks BSG (last 24hrs): Test 08/05/16 17:07 08/05/16 21:15 08/06/16 01:48 08/06/16 05:37 Bedside Glucose 247 mg/dl (70-90) 116 mg/dl (70-90) 196 mg/dl (70-90) Random Glucose 129 mg/dl (70-99) Test 08/06/16 07:51 08/06/16 12:00 Bedside Glucose 146 mg/dl (70-90) 100 mg/dl (70-90) Recent Pertinent Medications The patient is currently receiving: * Correctional Insulin: Novolog Correction per scale ACHS Goal Range: Low 110 mg/dL - High 150 mg/dL Correction Factor: 30 mg/dL/unit * Prandial insulin: Per carb ratio of 1 unit per 10 grams CHO consumed Outpatient Anti-Diabetic Meds Oral Agents Assessment & Plan ASSESSMENT: * 61 yo M s/p R TKA, POD #1 * Patient received 11 units immediately post-op and corrected nicely from 247 to 116 mg/dL * A pending order for Lantus if BSG >200 at HS check was not utilized last night as BSGs trended down nicely with Novolog alone * Now that BSGs stabilized, remove carb ratio and continue with correctional Novolog only * Restart Metformin 08/07/16 as discharge likely within 48 hours PLAN FOR INPATIENT GLYCEMIC CONTROL: * Oral Agents * Restart Metformin 1 g PO BIDM on 08/07 * Bolus insulin * NovoLog per scale ACHS * Goal Range: Low 110 mg/dL - High 150 mg/dL * Correction Factor: 35 mg/dL/unit * Nutritional / Prandial insulin per carb ratio of 1 unit per -- grams CHO consumed * Please note that the plan above was derived based on current level of insulin resistance and hospital stress. These recommendations are appropriate for inpatient admission only. Plan of care upon discharge will need to be reassessed to avoid potential outpatient hypo/hyperglycemia. Thank you.
[2016-08-06 15:04] VITALS: BP 131/77; PULSE 63; TEMP 36.7; O2SAT 95
[2016-08-06] MEDS: ESZOPICLONE 3 MG TAB PO SCH (21:59)
[2016-08-06 22:02] VITALS: BP 153/90; PULSE 69
[2016-08-06] MEDS: SIMVASTATIN 20 MG TAB PO SCH (22:08)
[2016-08-06] MEDS: SENNA 8.6 MG TAB PO SCH (22:08)
[2016-08-06 22:54] VITALS: BP 110/61; PULSE 72; TEMP 36.6; O2SAT 96
[2016-08-07] MEDS: ACETAMINOPHEN 500 MG TAB PO SCH ×2 (01:47→10:12)
[2016-08-07] MEDS: OXYCODONE HCL IR 5 MG TAB (IMMEDIATE RELEASE) PO PRN ×2 (01:50→07:56)
[2016-08-07] MEDS: KETOROLAC TROMETHAMINE 15 MG/ML VIAL IV. SCH ×2 (04:12→10:12)
[2016-08-07 06:25] VITALS: BP 102/67; PULSE 68; TEMP 36.4; O2SAT 91
[2016-08-07] MEDS: TAPENTADOL ER 50 MG TABCR PO SCH (07:57)
[2016-08-07] MEDS: ENALAPRIL MALEATE 10 MG TAB PO SCH (07:58)
[2016-08-07] MEDS: ASPIRIN 81 MG ECTAB PO SCH (07:58)
[2016-08-07] MEDS: INSULIN ASPART 100 UNITS/ML 3 ML PEN SC SCH (08:00)
[2016-08-07] MEDS: FERROUS GLUCONATE 324 MG TAB PO SCH (08:01)
[2016-08-07] MEDS: DULOXETINE HCL 60 MG CAP PO SCH (08:01)
[2016-08-07] MEDS: MULTIVITAMIN TAB PO SCH (08:02)
[2016-08-07] MEDS: HYDROCHLOROTHIAZIDE 25 MG TAB PO SCH (08:04)
[2016-08-07] MEDS: PANTOprazole SOD 40 MG TAB PO SCH (08:04)
[2016-08-07] MEDS: CYANOCOBALAMIN 100 MCG TAB (VIT B-12) PO SCH (08:05)
[2016-08-07] MEDS: AMLODIPINE BESYLATE 5 MG TAB PO SCH (08:05)
[2016-08-07] MEDS: DULOXETINE (CYMBALTA) 30 MG CAP PO SCH (08:06)
[2016-08-07] MEDS: NICOTINE 14 MG/24 HR TDSY TD SCH (08:06)
[2016-08-07] MEDS: PREGABALIN 100 MG CAP PO SCH (08:13)
--- NOTE | 2016-08-07 08:20 | Orthopedic Progress Note ---
Orthopedic Progress Note Date of Service Aug 07, 2016. Subjective Post OP Day: 2 Additional Notes: She's having a little more thigh and leg pain today. She said she felt sick, like she could vomit yesterday from the aspirin. No other complaints. Objective calves soft nontender, N/V intact, A&O x3 slight drainage on the stocking Date Time Temp Pulse Resp B/P (MAP) Pulse Ox O2 Delivery O2 Flow Rate FiO2 08/07/16 06:25 36.4 68 18 102/67 (79) 91 Room Air 08/06/16 23:48 Room Air 08/06/16 22:54 36.6 72 16 110/61 (77) 96 Room Air 08/06/16 22:02 69 153/90 (111) 08/06/16 15:20 Room Air 08/06/16 15:04 36.7 63 16 131/77 (95) 95 Room Air 08/06/16 11:15 36.5 62 16 125/72 (89) 99 Room Air Assessment & Plan Assessment: POD #2 from Right TKR. Doing well. Plan: 1.) DVT Prophylaxis - TEDS, SCDs, and ASA - 81mg BID. Will discuss with Dr. Smith regarding the aspirin. Will hold aspirin for now. 2.) PT/OT - Right TKR Protocol 3.) Pain control - doing well with current pain regimine. 4.) Disposition - Plan to D/C to home with Home Health once recovered. Discussed dvt prophylaxis with Dr. Smith. We stopped the aspirin. Will place her on xarelto 10mg daily. Discharge Planning Discharge Planning: home with home health Pain Management: PO Tylenol, Oxy IR DVT Prophylaxis: TEDs, SCDs, other Therapy: Physical Therapy, Occupational Therapy
[2016-08-07] MEDS ORDERED: METFORMIN HCL 500 MG TAB PO SCH (08:30)
[2016-08-07] MEDS ORDERED: XRL10 PO (09:01)
[2016-08-07] MEDS: METOPROLOL TARTRATE 50 MG TAB PO SCH (09:17)
[2016-08-07] MEDS: DOCUSATE SODIUM 100 MG CAP PO SCH (09:17)
[2016-08-07 10:58] VITALS: BP 102/67; PULSE 68; TEMP 36.4; O2SAT 91
[2016-08-08] MEDS ORDERED: RIVAROXABAN 10 MG TAB PO SCH (09:00)
[2016-08-11] MEDS ORDERED: LCTX PO (17:23)
[2016-08-11] MEDS ORDERED: LVQ750 PO (17:23)
[2016-08-11] MEDS ORDERED: PRED10TA PO (17:40)
--- NOTE | 2016-08-16 10:54 | Discharge Summary ---
Orthopedic Discharge Summary Admission Date/Reason Aug 05, 2016 at 12:34 Right Knee Degenerative Joint Disease. Discharge Date/Disposition Aug 07, 2016 Home with services Diagnosis Principal Diagnosis: RIGHT KNEE DJD Procedure(s) Performed RIGHT TKA Medication Reconciliation Continued Medications: Albuterol Hfa (Ventolin Hfa) 200 Puffs/75802 Mcg Aers 2 PUFFS INH Q6H PRN for SOB/Wheezing, #1 INHALER Amlodipine Besylate-Benazepril (Amlodipine Besylate/Benaz) 1 Cap Cap 1 CAP PO QAM, CAP 5/20 MG Celecoxib (CeleBREX) 200 Mg Cap 200 MG PO BID, CAP Duloxetine Hcl (Cymbalta) 60 Mg Cap 90 MG PO QAM, CAP Estrogens, Conjugated (Premarin) 0.625 Mg Tab 0.625 MG PO QAM, TAB Eszopiclone (Lunesta) 3 Mg Tab 3 MG PO DAILY, TAB Hydrochlorothiazide (Hctz) 25 Mg Tab 25 MG PO QAM, TAB Ipratropium-Albuterol (Combivent Respimat) 1 Aer Aer 1 PUFFS INH QID PRN for PRN, INH Melatonin (Melatonin Maximum Strengt) 5 Mg Tab 20 MG PO HS, TAB Metformin Hcl (Glucophage) 1,000 Mg Tab 1000 MG PO BID, TAB Metoprolol Tartrate (Lopressor) (Lopressor) 50 Mg Tab 50 MG PO BID, TAB Pregabalin (Lyrica) 200 Mg Cap 200 MG PO TID, CAP Simvastatin (Zocor) 20 Mg Tab 20 MG PO QPM, TAB Tizanidine (Zanaflex) 4 Mg Cap 4 MG PO TID PRN for UNDECIDED, CAP [Vitamin B12] () 50 MCG PO QAM Discontinued Medications: Oxycodone/Acetaminophen 10MG/325MG (Percocet 10MG/325MG) Tab 1 TAB PO 6XDAY PRN for Pain, TAB Admission Physical Exam As per Admitting History & Physical. Hospital Course MILI WAS ADMITTED ON 08/05/16 AND UNDERWENT TKA. SHE TOLERATED THE PROCEDURE WELL. THERE WERE NO COMPLICATIONS. SHE WAS TRANSFERRED TO THE PACU POST OP AND LATER TO THE ORTHOPEDIC FLOOR FOR FURTHER CARE. SHE WAS GIVEN ANCEF FOR ANTIBIOTIC PROPHYLAXIS. SUREKHA'S, SCD'S AND ASPIRIN FOR DVT PROPHYLAXIS. SHE WAS NOT TOLERATING THE ASPIRIN WELL SO SHE WAS SWITCHED TO XARELTO. HER H/H AND VITAL SIGNS WERE MONITORED DURING HER STAY AND REMAINED STABLE. SHE DID HAVE SOME POST OP ANEMIA BUT DID NOT REQUIRE ANY BLOOD TRANSFUSION. THERE WERE NO COMPLICATIONS DURING HER HOSPITAL STAY. BY POD#2 SHE WAS TOLERATING A GENERAL DIET, PAIN WAS CONTROLLED WITH ORAL PAIN MEDICATION, SHE WAS PARTICIPATING IN PT, AND HAD NO S/S OF DVT. ON POC#2 SHE WAS DISCHARGED HOME WITH HOME HEALTH. SHE WAS GIVEN DISCHARGE INSTRUCTIONS AND NEW PRESCRIPTIONS. CONTINUE XARELTO AND TEDS FOR DVT PROPHYLAXIS. CONTINUE PT, WBAT. FOLLOW UP IN 10-12 DAYS OR SOONER IF THERE ARE PROBLEMS OR CONCERNS. Discharge Instructions Please refer to the electronic Patient Visit Report (Discharge Instructions) for additional information.
== END 2016-08-07 11:39 | disposition home health service (06) | DRG 470 ==
LOC: C.ACU 08:25 → C.3E 12:34 → ENRESERV 13:38
PROVIDERS: ADMIT Orthopaedic Surgery Sports Medicine; ATTEND Orthopaedic Surgery Sports Medicine
PROC: 0SRC0J9 Replacement of Right Knee Joint with Synthetic Substitute, Cemented, Open Approach (ICD-10-PCS; principal; 2016-08-05 10:40)
DX: M17.11 Unilateral primary osteoarthritis, right knee (principal); M25.461 Effusion, right knee; M65.9 Synovitis and tenosynovitis, unspecified; M21.161 Varus deformity, not elsewhere classified, right knee; R11.0 Nausea; T39.015A Adverse effect of aspirin, initial encounter; Y92.230 Patient room in hospital as the place of occurrence of the external cause; J44.9 Chronic obstructive pulmonary disease, unspecified; I10 Essential (primary) hypertension; E11.9 Type 2 diabetes mellitus without complications; E78.00 Pure hypercholesterolemia, unspecified; M79.7 Fibromyalgia; F17.210 Nicotine dependence, cigarettes, uncomplicated; E66.9 Obesity, unspecified; Z68.28 Body mass index [BMI] 28.0-28.9, adult; Z96.652 Presence of left artificial knee joint; Z79.1 Long term (current) use of non-steroidal anti-inflammatories (NSAID); Z79.890 Hormone replacement therapy; Z79.84 Long term (current) use of oral hypoglycemic drugs; Z79.891 Long term (current) use of opiate analgesic; Z79.899 Other long term (current) drug therapy

== ENCOUNTER 2016-08-09 21:36 | Inpatient (IN) | payer OTHER ==
[~2016-08-09] VITALS: Ht 157.5 cm; Wt 81.7 kg
[~2016-08-09 21:36] MED LIST changes: +ACET-24 PO; -ACETAMINOPHEN 500 MG TAB PO SCH; -BUPIVACAINE 0.25% 30 ML VIAL ONE; -BUPIVACAINE 0.5 % 5 MG/1 ML PF 10ML VIAL ONE; -CEFAZOLIN 2000 MG/60 ML D5W 60 ML IV SCH; -FAMOTIDINE 20 MG TAB PO SCH; +FRRG PO; -GABAPENTIN 300 MG CAP PO SCH; -LACTATED RINGER'S 1000ML 1,000 ML IV SCH; -LACTATED RINGER'S 1000ML 500 ML IV ONE; -METOCLOPRAMIDE HCL 10 MG TAB PO SCH; +MORP-157 PO; -OXYC-106 PO; +RXC5 PO; -SCOPOLAMINE 1.5 MG TDSY TD SCH; -TRANEXAMIC ACID INJ 1,000 MG in SODIUM CHLORIDE 0.9% 100ML 100 ML IV SCH; +XRL10 PO
[2016-08-09] MEDS ORDERED: SODIUM CHLORIDE 0.9% 1000ML 1,000 ML IV STA ×2 (21:58)
[2016-08-09 22:14] LABS: ISTAT CREATININE 1.2 mg/dl (0.6-1.3); ISTAT HEMOGLOBIN 9.2 g/dl (12.0-16.0); ISTAT IONIZED CALCIUM 1.1 mmol/l (1.12-1.32)
[2016-08-09] MEDS ORDERED: NALOXONE HCL 0.4 MG/1 ML VIAL/CARP ONE (22:16)
[2016-08-09 22:20] LABS: BASO % 0.1 %; BASO ABS # 0.01 K/uL (0-0.2); COMPLETE YES; EOS % 0.8 %; HEMATOCRIT 27.7 % (37-47); IG% 0.1 %; LYMPH % 6.4 %; LYMPH ABS # 0.54 K/uL (1.2-3.4); MEAN CELL VOLUME 92.6 fL (80-100); MEAN CORPUSCULAR HEMOGLOBIN 30.4 pg (25-34); MEAN CORPUSCULAR HGB CONC 32.9 g/dl (32-36); MEAN PLATELET VOLUME 10.8 fL (7.4-10.4); MONO % 4.6 %; PLATELET COUNT 245 K/uL (130-400); RED BLOOD COUNT 2.99 M/uL (4.2-5.4); WHITE BLOOD COUNT 8.44 K/uL (4.8-10.8)
[2016-08-09 22:38] LABS: BUN/CREATININE RATIO 17.6 (10-20); CREATININE 1.4 mg/dl (0.60-1.20); MAGNESIUM 1.8 mg/dl (1.8-2.4); POTASSIUM 4.1 mmol/L (3.5-5.1)
[2016-08-09] MEDS ORDERED: ACET-1256 PO (22:38)
[2016-08-09] MEDS ORDERED: FERR325T18 PO (22:40)
[2016-08-09] MEDS ORDERED: MORP-157 PO (22:42)
[2016-08-09] MEDS ORDERED: OXYC1TAB3 PO (22:44)
[2016-08-09] MEDS ORDERED: RIVA1TAB PO (22:45)
[2016-08-09] MEDS ORDERED: CYAN100T PO (22:57)
--- NOTE | 2016-08-09 23:00 | EMERGENCY ROOM VISIT NOTE ---
History Report prepared by Hubert: Jennifer Everett Under the Supervision of: Dr. Yovana Bella M.D. First contact with patient: 21:50 Chief Complaint: OTHER COMPLAINT Stated Complaint: POST OP KNEE REPLACEMENT 08/05, HOT AND COLD History of Present Illness The patient is a 61 year old female who presents to the Emergency Room with complaints of persistent weakness starting earlier today. She was eating lunch when she began to feel hot and cold. She reports she was shaking. She has been having difficulty with her blood pressure for the past several months. Her blood pressure will become elevated and she will take her medications which causes her blood pressure to drop. She reports several occasions when she has passed out suddenly while walking. She has been feeling dizzy upon standing up. She had some SOB today which resolved after she used her inhaler. She reports feeling tired. She denies any bloody stools, vomiting, fever, or urinary symptoms. She has been eating and drinking normally. She had knee replacement surgery 4 days ago. She is having some knee pain currently. She was started on Xarelto after her surgery. She denies any missed doses. 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 She has been taking her medications regularly. She denies any history of kidney problems. Source of History: patient Onset: earlier today Position: other (global) Quality: other (weakness) Timing: other (persistent) Associated Symptoms: + LOC, + chills, + SOB, + fatigue, No fevers, No vomiting, No back pain, No hematochezia, No urinary symptoms Note: Pt reports knee pain, dizzy with standing up. Review of Systems See HPI for pertinent positives & negatives. A total of 10 systems reviewed and were otherwise negative. Past Medical & Surgical Medical Problems: (1) Right Knee DJD Family History No pertinent family history stated. Social History Smoking Status: Current Every Day Smoker Marital Status: Housing Status: lives with family Occupation Status: retired Current/Historical Medications Scheduled Acetaminophen (Tylenol), 1,000 MG PO TID Amlodipine Besylate-Benazepril (Amlodipine Besylate/Benaz), 1 CAP PO QAM Celecoxib (CeleBREX), 200 MG PO BID Cyanocobalamin (Vitamin B-12), 50 MCG PO QAM Duloxetine Hcl (Cymbalta), 90 MG PO QAM Estrogens, Conjugated (Premarin), 0.625 MG PO QAM Eszopiclone (Lunesta), 3 MG PO DAILY Ferrous Gluconate (Ferrous Gluconate), 324 MG PO BIDM Hydrochlorothiazide (Hctz), 25 MG PO QAM Melatonin (Melatonin Maximum Strengt), 20 MG PO HS Metformin Hcl (Glucophage), 1,000 MG PO BID Metoprolol Tartrate (Lopressor) (Lopressor), 50 MG PO BID Morphine Cont Rel (Ms Contin), 15 MG PO Q12 Pregabalin (Lyrica), 200 MG PO TID Rivaroxaban (Xarelto), 10 MG PO DAILY Simvastatin (Zocor), 20 MG PO QPM [Vitamin B12], 50 MCG PO QAM Scheduled PRN Albuterol Hfa (Ventolin Hfa), 2 PUFFS INH Q6H PRN for SOB/Wheezing Ipratropium-Albuterol (Combivent Respimat), 1 PUFFS INH QID PRN for PRN Oxycodone Ir (Roxicodone Ir), 5-10 MG PO Q6H PRN for Pain Tizanidine (Zanaflex), 4 MG PO TID PRN for UNDECIDED Allergies Coded Allergies: Latex2 -Systemic Allergic Response (Verified Allergy, Unknown, SWELLING THROAT SWELLS, 08/05/16) Aspirin (Verified Adverse Reaction, Unknown, NAUSEA, 08/05/16) Physical Exam Vital Signs Date Time Temp Pulse Resp B/P (MAP) Pulse Ox O2 Delivery O2 Flow Rate FiO2 08/10/16 00:00 75 19 82/52 97 Nasal Cannula 2.0 08/09/16 23:31 73 20 71/38 97 Nasal Cannula 2.0 08/09/16 23:12 74 22 74/53 97 Nasal Cannula 2.0 08/09/16 22:21 78 16 73/44 93 Nasal Cannula 4.0 08/09/16 22:20 73 08/09/16 22:17 72 18 69/47 91 Nasal Cannula 4.0 08/09/16 22:10 76 18 46/31 91 Nasal Cannula 4.0 08/09/16 21:40 36.9 79 18 66/46 91 Room Air Physical Exam Vital signs reviewed. General: Ill-appearing female, in no significant distress. Drowsy appearing HEENT: No scleral icterus, PERRLA, neck supple. Atraumatic. Cardiovascular: Regular rate and rhythm, no extra sounds. Pulmonary: Coarse breath sounds at the bases bilaterally, normal work of breathing. Abdomen: Soft, nontender, nondistended, positive bowel sounds. Musculoskeletal: Atraumatic, no peripheral edema. Neurologic: Patient drowsy but responsive, oriented x 3, full strength in all 4 extremities. Cranial nerves 2 through 12 grossly intact. Skin: Warm, dry, no rash Medical Decision & Procedures ER Provider Diagnostic Interpretation: X-ray results as stated below per interpretation by me and the radiologist. Radiology results as stated below per my review and radiologist interpretation: SINGLE VIEW CHEST CLINICAL HISTORY: Hypotension. Dyspnea. FINDINGS: An AP, portable, upright chest radiograph is obtained. No prior studies are available for comparison at the time of dictation. The heart is top normal for projection. The pulmonary vasculature is noncongested. There is patchy airspace consolidation at the left lung base. Minimal airspace opacities in the right lung base. No large pleural effusion or no pneumothorax is seen. The skeletal structures are osteopenic. The bony thorax is grossly intact. IMPRESSION: There is patchy airspace consolidation seen at the left lung base. Correlate clinically for evidence of pneumonia. Radiographic follow-up to resolution is recommended. Electronically signed by: Geovanni Olivo M.D. 08/09/2016 11:06 PM Dictated Date/Time: 08/09/2016 11:[address] SCAN OF THE BRAIN WITHOUT IV CONTRAST CLINICAL HISTORY: Headache. Hypotension. COMPARISON STUDY: No priors. TECHNIQUE: Unenhanced axial CT scan of the brain is performed from the vertex to the skull base. Automated dose control exposure was utilized. CT DOSE: 537.48 mGy.cm FINDINGS: Brain parenchyma: The brain parenchyma is normal in appearance. There is no hemorrhage, mass effect, or evidence of acute territorial ischemia by CT criteria. Velasquez-white matter is preserved. No extra-axial fluid collection is seen. Ventricles, sulci, cisterns: Normal in configuration. Intracranial vasculature: The visualized intracranial vasculature at the skull base is normal in appearance. Calvarium: Unremarkable. Sinuses and mastoids: The visualized paranasal sinuses are clear. The mastoid air cells are well pneumatized. Orbits: The bony orbits are grossly intact. IMPRESSION: There is no hemorrhage, mass effect, or evidence of acute territorial ischemia by CT criteria. Electronically signed by: Geovanni Olivo M.D. 08/09/2016 11:04 PM Dictated Date/Time: 08/09/2016 11:03 PM Laboratory Results 08/09/16 21:55 Red Blood Count 2.99, Mean Corpuscular Volume 92.6, Mean Corpuscular Hemoglobin 30.4, Mean Corpuscular Hemoglobin Concent 32.9, Mean Platelet Volume 10.8, Neutrophils (%) (Auto) 88.0, Lymphocytes (%) (Auto) 6.4, Monocytes (%) (Auto) 4.6, Eosinophils (%) (Auto) 0.8, Basophils (%) (Auto) 0.1, Neutrophils # (Auto) 7.42, Lymphocytes # (Auto) 0.54, Monocytes # (Auto) 0.39, Eosinophils # (Auto) 0.07, Basophils # (Auto) 0.01 08/09/16 21:55 Test 08/09/16 00:05 08/09/16 21:55 08/09/16 22:01 08/09/16 22:32 White Blood Count 8.44 K/uL (4.8-10.8) Red Blood Count 2.99 M/uL (4.2-5.4) Hemoglobin 9.1 g/dL (12.0-16.0) Hematocrit 27.7 % (37-47) Mean Corpuscular Volume 92.6 fL (80-100) Mean Corpuscular Hemoglobin 30.4 pg (25-34) Mean Corpuscular Hemoglobin Concent 32.9 g/dl (32-36) Platelet Count 245 K/uL (130-400) Mean Platelet Volume 10.8 fL (7.4-10.4) Neutrophils (%) (Auto) 88.0 % Lymphocytes (%) (Auto) 6.4 % Monocytes (%) (Auto) 4.6 % Eosinophils (%) (Auto) 0.8 % Basophils (%) (Auto) 0.1 % Neutrophils # (Auto) 7.42 K/uL (1.4-6.5) Lymphocytes # (Auto) 0.54 K/uL (1.2-3.4) Monocytes # (Auto) 0.39 K/uL (0.11-0.59) Eosinophils # (Auto) 0.07 K/uL (0-0.5) Basophils # (Auto) 0.01 K/uL (0-0.2) RDW Standard Deviation 50.8 fL (36.4-46.3) RDW Coefficient of Variation 15.0 % (11.5-14.5) Immature Granulocyte % (Auto) 0.1 % Immature Granulocyte # (Auto) 0.01 K/uL (0.00-0.02) Activated Partial Thromboplast Time 25.7 SECONDS (21.0-31.0) Partial Thromboplastin Ratio 1.0 Est Creatinine Clear Calc Drug Dose 40.3 ml/min Estimated GFR () 47.2 Estimated GFR (Non- 40.7 BUN/Creatinine Ratio 17.6 (10-20) Calcium Level 8.0 mg/dl (8.5-10.1) Magnesium Level 1.8 mg/dl (1.8-2.4) Total Bilirubin 0.4 mg/dl (0.2-1) Direct Bilirubin 0.1 mg/dl (0-0.2) Aspartate Amino Transf (AST/SGOT) 11 U/L (15-37) Alanine Aminotransferase (ALT/SGPT) 12 U/L (12-78) Alkaline Phosphatase 64 U/L (45-117) Total Protein 5.7 gm/dl (6.4-8.2) Albumin 2.5 gm/dl (3.4-5.0) Thyroid Stimulating Hormone (TSH) 1.110 uIu/ml (0.300-4.500) Bedside Hemoglobin 9.2 g/dl (12.0-16.0) Bedside Hematocrit 27 % (37-47) Bedside Sodium 139 mEq/L (135-144) Bedside Potassium 4.1 mEq/L (3.3-5.0) Bedside Chloride 103 mEq/L (101-112) Bedside Total CO2 22 mEq/l (24-31) Anion Gap 19.0 mmol/L (16-25) Bedside Blood Urea Nitrogen 24 mg/dl (7-18) Bedside Creatinine 1.2 mg/dl (0.6-1.3) Bedside Glucose (other) 225 mg/dl (70-99) Bedside Ionized Calcium (Nata) 1.10 mmol/l (1.12-1.32) Bedside Troponin I 0.060 ng/ml (0-0.045) Test 08/09/16 22:35 08/09/16 23:46 08/10/16 00:01 08/10/16 00:05 Urine Color DK YELLOW Urine Appearance CLEAR (CLEAR) Urine pH 5.0 (4.5-7.5) Urine Specific Point 1.024 (1.000-1.030) Urine Protein NEG (NEG) Urine Glucose (UA) NEG (NEG) Urine Ketones TRACE (NEG) Urine Occult Blood NEG (NEG) Urine Nitrite NEG (NEG) Urine Bilirubin NEG (NEG) Urine Urobilinogen NEG (NEG) Urine Leukocyte Esterase NEG (NEG) Bedside Lactic Acid Venous 2.00 mmol/L (0.90-1.70) Laboratory results per my review. Medications Administered Medications (Trade) Dose Ordered Sig/Luis Route Start Time Stop Time Status Last Admin Dose Admin Sodium Chloride 1,000 ml @ 999 mls/hr Q1H1M STAT IV 08/09/16 21:58 08/09/16 22:58 DC 08/09/16 22:23 999 MLS/HR Sodium Chloride 1,000 ml @ 200 mls/hr Q5H STAT IV 08/09/16 21:58 08/10/16 02:57 08/09/16 22:23 200 MLS/HR Naloxone HCl (Narcan Inj) 0.4 mg STK-MED ONCE .ROUTE 08/09/16 22:16 08/09/16 22:17 DC 08/09/16 22:24 0.4 MG Piperacillin Sod/ Tazobactam Sod (Zosyn Iv) 4.5 gm NOW STAT IV 08/09/16 23:33 08/09/16 23:35 DC 08/09/16 23:55 4.5 GM Methylprednisolone Sodium Succinate (Solu-Medrol IV) 125 mg NOW STAT IV 08/09/16 23:50 08/09/16 23:51 DC 08/09/16 23:55 125 MG Diphenhydramine HCl (Benadryl Inj) 25 mg NOW STAT IV 08/09/16 23:50 08/09/16 23:51 DC 08/09/16 23:55 25 MG ECG Indication: weakness Rate (beats per minute): 74 Rhythm: normal sinus Findings: nonspecific-ST abn (Inferior, Lateral), no ectopy Comparison ECG Date: 13-Jun-2016 Change: ST abnormality in inferior and lateral leads is new. ED Course 2151: Past medical records reviewed. The patient was evaluated in room B2. A complete history and physical examination was performed. 2158: NSS 1000 ml @ 200 mls/hr IV, NSS 1000 ml @ 999 mls/hr IV. 2216: Narcan Inj 0.4 mg IV. 2333: Norepinephrine Bitartrate 8 mg/Dextrose 508 ml @ 0 mls/hr IV, Zosyn Iv 4.5 gm IV. 2335: I reviewed the patient's case with Dr. Whittington, [facility]. He will evaluate the patient for further management. 2339: Upon reevaluation, the patient is resting comfortably. I discussed laboratory and radiographic results with her. She verbalized agreement of the treatment plan. [facility] The patient will be evaluated for further management and care. 2345: Levofloxacin 750 mg IV. 2350: Benadryl Inj 25 mg IV, Solu-Medrol IV 125 mg IV. Medical Decision Differential diagnosis: Etiologies such as metabolic, infection, hypo/hyperglycemia, electrolyte abnormalities, cardiac sources, intracerebral event, toxicologic, neurologic, as well as others were entertained. Medication Reconciliation: I attest that I have personally reviewed the patient' s current medication list. Blood Pressure Screening: Patient was found to have a low blood pressure and was referred to the hospitalist for recheck and further treatment. This patient was evaluated and appeared to be in no significant distress. IV access was obtained and laboratory work was drawn. Patient was hydrated with normal saline solution. Mucous membranes are dry. Blood pressure was persistently hypotensive into the 60s and 70s. Patient was given 2 L of IV normal saline solution. She began to have some increased shortness of breath. She is placed on nasal cannula oxygen. Chest x-ray was performed and reveals a left lower infiltrate. On further questioning, the patient states she has had some increased shortness of breath with cough. She denies any fevers. A CT scan of the chest has been ordered and is pending. expresses concerns over polypharmacy with muscle relaxers, opioids, Lyrica and Lunesta. He does not know if she has been taking them appropriately. She also use melatonin to sleep at night. He states she has been starting out her mornings fairly clear and becomes more drowsy during the day. As the patient's blood pressure has been persistently low, lactate is 2.0 and troponin is 0.06, norepinephrine has been ordered as a drip to help increase the patient's blood pressure. Of note she did not have any response to Narcan. Dr. Gong of the hospitalist service has been consulted. He will evaluate the patient for admission and further management. Consults Time Called: 2331 Consulting Physician: Dr. Whittington [facility] hospitalist Returned Call: [phone] I reviewed the patient's case with him. He will evaluate the patient for further management. Impression Primary Impression: Hypotension Additional Impressions: Pneumonia Polypharmacy S/P total knee arthroplasty Critical Care I have personally spent greater than 35 minutes of critical care time in the direct management of this patient. This includes bedside care, interpretation of diagnostic studies, and testing, discussion with consultants, patient, and family members, and other required patient management activities. This 35 minutes is in excess of all separately billable procedures. Scribe Attestation The scribe's documentation has been prepared under my direction and personally reviewed by me in its entirety. I confirm that the note above accurately reflects all work, treatment, procedures, and medical decision making performed by me. Departure Information Dispostion Being Evaluated By Hospitalist Referrals Tony Carter D.O. (PCP) Patient Instructions My [facility] Problem Qualifiers Primary Impression: Hypotension Hypotension type: postprocedural hypotension Qualified Codes: I95.81 - Postprocedural hypotension Additional Impressions: Pneumonia Pneumonia type: due to unspecified organism Laterality: left Lung location : lower lobe of lung Qualified Codes: J18.1 - Lobar pneumonia, unspecified organism S/P total knee arthroplasty Laterality: right Qualified Codes: Z96.651 - Presence of right artificial knee joint
[2016-08-09 23:01] LABS: URINE APPEARANCE CLEAR (CLEAR); URINE BILIRUBIN NEG (NEG); URINE COLOR DK YELLOW; URINE NITRITE NEG (NEG); URINE SPECIFIC GRAVITY 1.024 (1.000-1.030); UROBILINOGEN NEG (NEG); ZZURINE CULT IF INDIC CATH NO
[2016-08-09 23:03] LABS: MANUAL MICROSCOPIC REQUIRED? NO; REVIEW REQ? NO
--- NOTE | 2016-08-09 23:06 | DIAGNOSTIC IMAGING REPORT ---
CT SCAN OF THE BRAIN WITHOUT IV CONTRAST CLINICAL HISTORY: Headache. Hypotension. COMPARISON STUDY: No priors. TECHNIQUE: Unenhanced axial CT scan of the brain is performed from the vertex to the skull base. Automated dose control exposure was utilized. CT DOSE: 537.48 mGy.cm FINDINGS: Brain parenchyma: The brain parenchyma is normal in appearance. There is no hemorrhage, mass effect, or evidence of acute territorial ischemia by CT criteria. Velasquez-white matter is preserved. No extra-axial fluid collection is seen. Ventricles, sulci, cisterns: Normal in configuration. Intracranial vasculature: The visualized intracranial vasculature at the skull base is normal in appearance. Calvarium: Unremarkable. Sinuses and mastoids: The visualized paranasal sinuses are clear. The mastoid air cells are well pneumatized. Orbits: The bony orbits are grossly intact. IMPRESSION: There is no hemorrhage, mass effect, or evidence of acute territorial ischemia by CT criteria. Electronically signed by: Geovanni Olivo M.D. 08/09/2016 11:04 PM Dictated Date/Time: 08/09/2016 11:03 PM
--- NOTE | 2016-08-09 23:07 | DIAGNOSTIC IMAGING REPORT ---
SINGLE VIEW CHEST CLINICAL HISTORY: Hypotension. Dyspnea. FINDINGS: An AP, portable, upright chest radiograph is obtained. No prior studies are available for comparison at the time of dictation. The heart is top normal for projection. The pulmonary vasculature is noncongested. There is patchy airspace consolidation at the left lung base. Minimal airspace opacities in the right lung base. No large pleural effusion or no pneumothorax is seen. The skeletal structures are osteopenic. The bony thorax is grossly intact. IMPRESSION: There is patchy airspace consolidation seen at the left lung base. Correlate clinically for evidence of pneumonia. Radiographic follow-up to resolution is recommended. Electronically signed by: Geovanni Olivo M.D. 08/09/2016 11:06 PM Dictated Date/Time: 08/09/2016 11:05 PM
[2016-08-09] MEDS ORDERED: NOREPINEPHRINE BIT INJ 8 MG in DEXTROSE 5% 500ML 500 ML IV STA (23:33)
[2016-08-09] MEDS ORDERED: PIPERACILLIN/TAZOBACTAM 4.5 GM/100ML D5W IV STA (23:33)
[2016-08-09] MEDS ORDERED: LEVAQUIN 750MG / 150ML D5W IV ONE (23:45)
[2016-08-09] MEDS ORDERED: DiphenhydrAMINE HCL 50 MG/ML VIAL IV STA (23:50)
[2016-08-09] MEDS ORDERED: METHYLPREDNISOLONE 125 MG VIAL IV STA (23:50)
[2016-08-10] VITALS (13 sets, daily range): BP systolic 110–151; BP diastolic 54–85; PULSE 71–89; TEMP 36.6–37; O2SAT 92–100; Ht 157.5 cm; Wt 81.7 kg
[2016-08-10] MEDS ORDERED: OPTIRAY 320 IV PRN
[2016-08-10] MEDS ORDERED: ALBUT/IPRATROP 3MG/0.5MG NEB 3 ML VIAL INH STA
[2016-08-10] MEDS ORDERED: METHYLPREDNISOLONE IV 20 MG in SYRINGE 0 ML IV ONE
[2016-08-10] MEDS ORDERED: LANTUS PER UNIT CHARGE SC ONE (00:10)
[2016-08-10 00:12] LABS: THYROID STIMULATING HORMONE 1.11 uIu/ml (0.300-4.500)
[2016-08-10] MEDS ORDERED: VANCOMYCIN INJ 1,850 MG in SODIUM CHLORIDE 0.9% 500ML 500 ML IV ONE (00:30)
--- NOTE | 2016-08-10 00:46 | History and Physical ---
History & Physical Date & Time of Service: Aug 10, 2016 at 00:45 Chief Complaint: sob, hot And Cold Primary Care Physician: Tony Carter D.O. History of Present Illness Source: patient, family, hospital records Recent confinement a few days ago under Orthopedics service for right knee surgery. Significant postop pain patient discharged on round the clock MS Contin course. Some intolerance to aspirin postop, px dcd on Xarelto. As per patient daughter, swelling of the right knee noted on home nurse visit with some drainage. Pain so-so as per px. No fever. Yesterday patient felt hot/cold. Was not feeling well, poor appetite, little sleepy as per family. Patient more short of breath than usual, usual smoker's cough symptoms productive of junky yellow sputum. Admits to some coughing with meals. Denies chest pain. Patient denies abdominal pain, dysuria symptoms. At the emergency room, SBP noted to be 70s. Given 2 L of normal saline, Levaquin and Zosyn for possible sepsis. Levophed initiated for persistent hypotension. Past Medical/Surgical History COPD HTN Hyperlipidemia DM 2 on oral meds anemia ongoing tobacco abuse Arthritis Knee replacement Hernia repair Cholecystectomy Carpal tunnel surgery Family History FH: heart disease Social History Smoking Status: Current Every Day Smoker Alcohol Use: none Marital Status: Occupational Status: retired, disabled Multi-Drug Resistant Organisms History of MDRO: No Allergies Coded Allergies: Latex2 -Systemic Allergic Response (Verified Allergy, Unknown, SWELLING THROAT SWELLS, 08/05/16) Aspirin (Verified Adverse Reaction, Unknown, NAUSEA, 08/05/16) Home Medications Scheduled Acetaminophen (Tylenol), 1,000 MG PO TID Amlodipine Besylate-Benazepril (Amlodipine Besylate/Benaz), 1 CAP PO QAM Celecoxib (CeleBREX), 200 MG PO BID Cyanocobalamin (Vitamin B-12), 50 MCG PO QAM Duloxetine Hcl (Cymbalta), 90 MG PO QAM Estrogens, Conjugated (Premarin), 0.625 MG PO QAM Eszopiclone (Lunesta), 3 MG PO DAILY Ferrous Gluconate (Ferrous Gluconate), 324 MG PO BIDM Hydrochlorothiazide (Hctz), 25 MG PO QAM Melatonin (Melatonin Maximum Strengt), 20 MG PO HS Metformin Hcl (Glucophage), 1,000 MG PO BID Metoprolol Tartrate (Lopressor) (Lopressor), 50 MG PO BID Morphine Cont Rel (Ms Contin), 15 MG PO Q12 Pregabalin (Lyrica), 200 MG PO TID Rivaroxaban (Xarelto), 10 MG PO DAILY Simvastatin (Zocor), 20 MG PO QPM [Vitamin B12], 50 MCG PO QAM Scheduled PRN Albuterol Hfa (Ventolin Hfa), 2 PUFFS INH Q6H PRN for SOB/Wheezing Ipratropium-Albuterol (Combivent Respimat), 1 PUFFS INH QID PRN for PRN Oxycodone Ir (Roxicodone Ir), 5-10 MG PO Q6H PRN for Pain Tizanidine (Zanaflex), 4 MG PO TID PRN for UNDECIDED Review of Systems As per history of present illness, all other ROS negative Physical Exam Vital Signs Date Time Temp Pulse Resp B/P (MAP) Pulse Ox O2 Delivery O2 Flow Rate FiO2 08/10/16 00:00 75 19 82/52 97 Nasal Cannula 2.0 08/09/16 23:31 73 20 71/38 97 Nasal Cannula 2.0 08/09/16 23:12 74 22 74/53 97 Nasal Cannula 2.0 08/09/16 22:21 78 16 73/44 93 Nasal Cannula 4.0 08/09/16 22:20 73 08/09/16 22:17 72 18 69/47 91 Nasal Cannula 4.0 08/09/16 22:10 76 18 46/31 91 Nasal Cannula 4.0 08/09/16 21:40 36.9 79 18 66/46 91 Room Air General Appearance: + obese, + pertinent finding (episode of lethargy) Head: normocephalic Eyes: + pertinent finding (pale palpebral conjunctivae, dry mucosa) Neck: + pertinent finding (short) Respiratory/Chest: + wheezing Cardiovascular: regular rate, rhythm Abdomen/GI: soft Extremities/Musculoskelatal: + pertinent finding (dressing right lower extremity) Neurologic/Psych: + pertinent finding (episodes of lethargy) Skin: + pallor Diagnostics Laboratory Results Results Past 24 Hours Test 08/09/16 21:55 08/09/16 22:01 08/09/16 22:32 08/09/16 22:35 Range/Units White Blood Count 8.44 4.8-10.8 K/uL Red Blood Count 2.99 4.2-5.4 M/uL Hemoglobin 9.1 12.0-16.0 g/dL Hematocrit 27.7 37-47 % Mean Corpuscular Volume 92.6 80-100 fL Mean Corpuscular Hemoglobin 30.4 25-34 pg Mean Corpuscular Hemoglobin Concent 32.9 32-36 g/dl Platelet Count 245 130-400 K/uL Mean Platelet Volume 10.8 7.4-10.4 fL Neutrophils (%) (Auto) 88.0 % Lymphocytes (%) (Auto) 6.4 % Monocytes (%) (Auto) 4.6 % Eosinophils (%) (Auto) 0.8 % Basophils (%) (Auto) 0.1 % Neutrophils # (Auto) 7.42 1.4-6.5 K/uL Lymphocytes # (Auto) 0.54 1.2-3.4 K/uL Monocytes # (Auto) 0.39 0.11-0.59 K/uL Eosinophils # (Auto) 0.07 0-0.5 K/uL Basophils # (Auto) 0.01 0-0.2 K/uL RDW Standard Deviation 50.8 36.4-46.3 fL RDW Coefficient of Variation 15.0 11.5-14.5 % Immature Granulocyte % (Auto) 0.1 % Immature Granulocyte # (Auto) 0.01 0.00-0.02 K/uL Activated Partial Thromboplast Time 25.7 21.0-31.0 SECONDS Partial Thromboplastin Ratio 1.0 Sodium Level 140 136-145 mmol/L Potassium Level 4.1 3.5-5.1 mmol/L Chloride Level 107 98-107 mmol/L Carbon Dioxide Level 23 21-32 mmol/L Anion Gap 10.0 19.0 16-25 mmol/L Blood Urea Nitrogen 25 7-18 mg/dl Creatinine 1.40 0.60-1.20 mg/dl Est Creatinine Clear Calc Drug Dose 40.3 ml/min Estimated GFR () 47.2 Estimated GFR (Non- 40.7 BUN/Creatinine Ratio 17.6 10-20 Random Glucose 216 70-99 mg/dl Calcium Level 8.0 8.5-10.1 mg/dl Magnesium Level 1.8 1.8-2.4 mg/dl Total Bilirubin 0.4 0.2-1 mg/dl Direct Bilirubin 0.1 0-0.2 mg/dl Aspartate Amino Transf (AST/SGOT) 11 15-37 U/L Alanine Aminotransferase (ALT/SGPT) 12 12-78 U/L Alkaline Phosphatase 64 45-117 U/L Total Protein 5.7 6.4-8.2 gm/dl Albumin 2.5 3.4-5.0 gm/dl Thyroid Stimulating Hormone (TSH) 1.110 0.300-4.500 uIu/ml Bedside Hemoglobin 9.2 12.0-16.0 g/dl Bedside Hematocrit 27 37-47 % Bedside Sodium 139 135-144 mEq/L Bedside Potassium 4.1 3.3-5.0 mEq/L Bedside Chloride 103 101-112 mEq/L Bedside Total CO2 22 24-31 mEq/l Bedside Blood Urea Nitrogen 24 7-18 mg/dl Bedside Creatinine 1.2 0.6-1.3 mg/dl Bedside Glucose (other) 225 70-99 mg/dl Bedside Ionized Calcium (Nata) 1.10 1.12-1.32 mmol/l Bedside Troponin I 0.060 0-0.045 ng/ml Urine Color DK YELLOW Urine Appearance CLEAR CLEAR Urine pH 5.0 4.5-7.5 Urine Specific [place] 1.024 1.000-1.030 Urine Protein NEG NEG Urine Glucose (UA) NEG NEG Urine Ketones TRACE NEG Urine Occult Blood NEG NEG Urine Nitrite NEG NEG Urine Bilirubin NEG NEG Urine Urobilinogen NEG NEG Urine Leukocyte Esterase NEG NEG Test 08/09/16 23:46 08/10/16 00:01 08/10/16 00:05 Range/Units Bedside Lactic Acid Venous 2.00 0.90-1.70 mmol/L Microbiology Results 08/09/16 Blood Culture, Received Pending 08/09/16 Blood Culture, Received Pending Diagnostic Radiology CT chest initial read : Multi-focal pneumonia, no PE CT right leg initially read : Soft tissue swelling around the knee, no obvious hematoma Joint effusion and foci of gas are present. EKG As per my read : Rate 70 normal sinus rhythm and some T-wave flattening inferiorly leads Impression Assessment and Plan AP Hypotension Secondary to hypovolemia Possible sepsis (SIRS criteria not met for now) (possible sources : HCAP/ possible aspiration pneumonia as per patient; right knee, recent surgery) ro cardiac pathology suboptimal BP despite 2L NSS and Zosyn administered at the ER Acute hypoxemic respiratory failure secondary to COPD exacerbation secondary to pneumonia ARF 2 to illness postop anemia DM2 on oral meds, reasonable control as of recent A1c Ongoing tobacco abuse ICU to facilitate pressor therapy CS, add Vancomycin to Zosyn NSS, follow-up lactic acid level hold home anti-HTN meds for now TTE hypotension, troponinemia Supplemental O2 baseline ABG Steroids, nebs for COPD exacerbation Aspiration precautions, swallow eval Nicotine patch Monitor creatinine response IV fluids Orthopedics consult. Postop eval Basal insulin, ISS BG goal 140-180 Hold recent rx of [id number] narcotics for now until patient more awake DVT prophylaxis. Xarelto Full code Total critical care time was 50 minutes VTE Prophylaxis VTE Risk Assessment Done? Y/N: Yes Risk Level: Moderate
[2016-08-10] MEDS ORDERED: SODIUM CHLORIDE 0.9% 1000ML 1,000 ML IV SCH ×2 (00:58→02:45)
[2016-08-10] MEDS ORDERED: EpINEphrine HCL INJ 4 MG in DEXTROSE 5% 250ML 250 ML IV STA (00:58)
[2016-08-10] MEDS ORDERED: DEXTROSE 50% 50 ML SYR IV PRN ×2 (01:00)
[2016-08-10] MEDS ORDERED: ALBUT/IPRATROP 3MG/0.5MG NEB 3 ML VIAL INH PRN (01:00)
[2016-08-10] MEDS ORDERED: LORAZEPAM 2 MG/ML 1 ML VIAL IV PRN (01:00)
[2016-08-10] MEDS ORDERED: GLUCOSE 10 TABS/TUBE PO PRN ×2 (01:00)
[2016-08-10] MEDS ORDERED: ACETAMINOPHEN 325 MG TAB PO PRN (01:00)
[2016-08-10] MEDS ORDERED: NITROGLYCERIN 0.4 MG SL PER TAB CHARGE SL PRN (01:00)
[2016-08-10] MEDS ORDERED: GLUCOSE 40% GEL 15 GM TUBE PO PRN ×2 (01:00)
[2016-08-10] MEDS ORDERED: GLUCAGON FOR INJ 1 MG VIAL SQ PRN ×2 (01:00)
[2016-08-10] MEDS ORDERED: PIPERACILL/TAZOBAC CONSULT ACTIVE PRN (01:09)
[2016-08-10] MEDS ORDERED: HYDROmorphone INJ 0.5 MG/0.5 ML SYR IV PRN ×2 (01:15→09:15)
[2016-08-10] MEDS ORDERED: VANCOMYCIN CONSULT ACTIVE PRN (01:15)
[2016-08-10] MEDS ORDERED: ONDANSETRON INJ 2 MG/ML 2 ML VIAL IV PRN (01:15)
[2016-08-10] MEDS ORDERED: INSULIN ASPART 100 UNITS/ML 3 ML PEN SC ONE (01:15)
[2016-08-10] MEDS ORDERED: NOREPINEPHRINE BIT INJ 8 MG in DEXTROSE 5% 500ML 500 ML IV SCH (02:06)
[2016-08-10] MEDS: IPRATROPIUM BROMIDE NEB SOLN 0.02% 2.5 ML VIAL INH SCH ×4 (02:12→19:17)
[2016-08-10] MEDS: LEVALBUTEROL 1.25MG/0.5ML NEB INH SCH ×4 (02:12→19:17)
[2016-08-10] MEDS ORDERED: LEVALBUTEROL/IPRATROPIUM NEB INH SCH (03:00)
--- NOTE | 2016-08-10 03:06 | DIAGNOSTIC IMAGING REPORT ---
CT SCAN OF THE RIGHT KNEE WITHOUT IV CONTRAST CLINICAL HISTORY: Right leg swelling. Clinical concern for hematoma. COMPARISON STUDY: Radiographs of the right knee dated 08/05/2016. TECHNIQUE: CT scan of the right knee is performed from the distal femur to the proximal tibia and fibula. Images are reviewed in the axial, sagittal, and coronal planes. IV contrast was not administered for this examination. The examination is significantly degraded by streak artifact from a right hip arthroplasty. CT DOSE: 344.44 mGy.cm FINDINGS: The skeletal structures are osteopenic. No fracture is identified. A right knee arthroplasty is in near-anatomic alignment. There as been undersurface remodeling of the patella. There is a joint effusion. There is gas present within the joint space, likely related to recent surgery. Skin clips are noted. Diffuse soft tissue edema an subcutaneous fluid is present around the knee. No organized/hyperdense fluid collection is seen to suggest hematoma. There is atrophy of the regional musculature. Atherosclerotic calcification is noted in the popliteal artery. IMPRESSION: 1. Diffuse subcutaneous soft tissue edema and fluid is seen around the knee. No organized fluid collection is identified to suggest hematoma as clinically queried. 2. No acute bony abnormality is identified noting a right knee arthroplasty in place. Streak artifact from the arthroplasty significantly degrades the examination. 3. There is a joint effusion, and foci of gas are present within the joint space. This is nonspecific and likely related to recent surgery. Clinical correlation will be required. Electronically signed by: Geovanni Olivo M.D. 08/10/2016 1:08 AM Dictated Date/Time: 08/10/2016 1:03 AM
--- NOTE | 2016-08-10 03:06 | DIAGNOSTIC IMAGING REPORT ---
CT ANGIOGRAM OF THE CHEST CLINICAL HISTORY: Dyspnea. Hypotension. Recent surgery. COMPARISON STUDY: Chest x-ray dated 08/09/2016. TECHNIQUE: Following the IV administration of 98 cc of Optiray 320, CT angiogram of the chest was performed from the upper abdomen to the thoracic inlet utilizing the pulmonary embolus protocol. Images are reviewed in the axial, sagittal, and coronal planes. 3-D MIPS images are created and assessed. IV contrast was administered without complication. CT DOSE: 532.33 mGy.cm FINDINGS: Thyroid: Imaged portions of the thyroid gland are normal in size and attenuation. Thoracic aorta: The thoracic aorta is normal in caliber and demonstrates standard 3-vessel arch anatomy. No dissection is seen. Pulmonary vasculature: The pulmonary trunk is normal in caliber. There are no filling defects identified in main, lobar, or segmental pulmonary branches to suggest pulmonary embolus. Heart: The heart is normal in size and configuration, and without pericardial effusion. There are scattered coronary artery calcifications. Lungs and pleural spaces: There is dense airspace consolidation seen throughout the left lower lobe. Minimal patchy airspace consolidation is seen in the left upper lobe and at the right lung base. There is a trace left pleural effusion. The trachea and central airways are clear. Mediastinum: There is no mediastinal lymphadenopathy. Stephanie: Clear. Axillae: There is no axillary lymphadenopathy. Upper abdomen: There is a tiny hiatal hernia. Hepatic steatosis is observed. There is an indeterminant 3.5 cm low-attenuation lesion in the right lobe of the liver seen on axial image #37. Skeletal structures: The skeletal structures are osteopenic. Degenerative changes noted in the thoracic spine. No lytic or blastic bony lesions are seen. IMPRESSION: 1. There is no evidence of pulmonary embolus in the main, lobar, or segmental pulmonary arteries. 2. There is dense airspace consolidation throughout the left lower lobe. Mild patchy airspace consolidation is seen in the left upper lobe and at the right lung base. The appearance is typical for multifocal pneumonia. Radiographic follow-up to resolution is recommended. 3. Trace left pleural effusion. 4. There is an indeterminant 3.5 cm low-attenuation lesion identified in the right lobe of the liver. This may represent a benign hemangioma or focal nodular hyperplasia but is incompletely assessed. Follow-up with a nonemergent/outpatient MRI of the abdomen with IV contrast is recommended for further assessment. 5. Hepatic steatosis. Electronically signed by: Geovanni Olivo M.D. 08/10/2016 1:22 AM Dictated Date/Time: 08/10/2016 1:17 AM
[2016-08-10 03:26] LABS: BENZODIAZEPINE, URINE NEG (NEG); COCAINE,URINE NEG (NEG); PHENCYCLIDINE, URINE NEG (NEG)
[2016-08-10] MEDS ORDERED: SODIUM CHLORIDE 0.9% 1000ML 1,000 ML IV ONE (03:45)
[2016-08-10 04:57] LABS: ALLEN TEST POS (POS); ARTERIAL BLOOD GAS BASE EXCESS -3.4 mEq/L (-9-1.8); ARTERIAL BLOOD GAS HCO3 22 mmol/L (19-24); ARTERIAL BLOOD GAS PO2 107 mm/Hg (80-95); ARTERIAL BLOOD GAS pH 7.37 (7.35-7.45); O2 ADMINISTRATION 2L
[2016-08-10 05:51] LABS: COMPLETE YES; EOS % 0.1 %; HEMATOCRIT 27.7 % (37-47); IG% 0.2 %; LYMPH % 4.9 %; LYMPH ABS # 0.47 K/uL (1.2-3.4); MEAN CELL VOLUME 93.6 fL (80-100); MEAN CORPUSCULAR HEMOGLOBIN 30.4 pg (25-34); MEAN CORPUSCULAR HGB CONC 32.5 g/dl (32-36); MEAN PLATELET VOLUME 10.7 fL (7.4-10.4); MONO % 3.2 %; NEUT % 91.6 %; PLATELET COUNT 206 K/uL (130-400); RED BLOOD COUNT 2.96 M/uL (4.2-5.4); WHITE BLOOD COUNT 9.59 K/uL (4.8-10.8)
[2016-08-10] MEDS: PIPERACILL/TAZOBAC IV 3.375 GM in DEXTROSE 5% 100ML IV SCH ×3 (06:05→22:17)
[2016-08-10 06:38] LABS: BUN/CREATININE RATIO 22.3 (10-20); CALCIUM 7.9 mg/dl (8.5-10.1); POTASSIUM 4.6 mmol/L (3.5-5.1)
[2016-08-10] MEDS ORDERED: PERFLUTREN LIPID MICROSPHERE (DEFINITY) IV ONE (07:15)
[2016-08-10] MEDS: NICOTINE 14 MG/24 HR TDSY TD SCH (08:44)
[2016-08-10] MEDS: DULOXETINE (CYMBALTA) 30 MG CAP PO SCH (08:45)
[2016-08-10] MEDS: RIVAROXABAN 10 MG TAB PO SCH (08:46)
[2016-08-10] MEDS: FERROUS GLUCONATE 324 MG TAB PO SCH ×2 (08:46→16:00)
[2016-08-10] MEDS: PREGABALIN 100 MG CAP PO SCH ×3 (08:51→19:59)
[2016-08-10] MEDS: OXYCODONE/ACETAMINOPHEN 5-325 TAB PO PRN ×3 (08:52→20:00)
[2016-08-10] MEDS: INSULIN ASPART 100 UNITS/ML 3 ML PEN SC SCH ×4 (08:58→19:57)
[2016-08-10] MEDS: INSULIN GLARGINE SOLOSTAR 100 UNITS/ML 3 ML PEN SC SCH ×2 (08:59→20:04)
--- NOTE | 2016-08-10 09:36 | ECHOCARDIOGRAM REPORT ---
*NOTICE TO RECEIVING REPUBLICAN AGENCY This information is strictly Confidential and protected under [place] law. [place] law prohibits you from making any further disclosure of this information unless further disclosure is expressly permitted by the written consent of the person to whom it pertains or is authorized by law. A general authorization for the release of medical or other information is not sufficient for this purpose. Hospital accepts no responsibility if the information is made available to any other person, INCLUDING THE PATIENT. Interpretation Summary * Name: MILI ALVARADO Study Date: 08/10/2016 07:01 AM BP: 110/54 mmHg * Patient Location: .[facility]ICU\S\E108\S\1 HR: 71 * : 1955 (M/d/yyyy) Gender: Female Height: 62 in * Age: 61 yrs Ethnicity: [place] Weight: 182 lb * Ordering Physician: Samuel Whittington * Referring Physician: Robin Smith * Performed By: Samuel Collado RDCS * * Reason For Study: Hypotension * BSA: 1.8 m2 * Grossly normal valvular structure and function. * -- Conclusions -- * The left ventricle is normal in size. * There is mild concentric left ventricular hypertrophy. * Left ventricular systolic function is normal. * Ejection Fraction = 60-65%. * The right ventricular systolic function is normal. * The left atrial size is normal. * Right atrial size is normal. * Grossly normal valvular structure and function. Procedure Details * A complete two-dimensional transthoracic echocardiogram was performed (2D, M-mode, Doppler and color flow Doppler). * The study was technically difficult. * There were technical limitations due to patient'sPoor acoustic windows secondary to severe lung disease. * The study was technically difficult, but visualization was adequate with the administration of Definity ultrasound contrast. * A contrast injection of Definity was performed to improve assessment of LV function. * Contrast was injected into an intravenous site in the right arm. * One vial of Definity ultrasound contrast was diluted in normal saline to a total volume of 10 ml. A total of '3' ml of solution was administered during imaging. * Lot # [id number] of Definity utilized for procedure. * Expiration date [id number]. * The attending nurse who injected the contrast agent was Haven, RN. Left Ventricle * The left ventricle is normal in size. * There is mild concentric left ventricular hypertrophy. * Left ventricular systolic function is normal. * Ejection Fraction = 60-65%. * The left ventricular wall motion is normal. Right Ventricle * The right ventricle is normal size. * The right ventricular systolic function is normal. Atria * The left atrial size is normal. * Right atrial size is normal. * The interatrial septum is intact with no evidence for an atrial septal defect. Mitral Valve * The mitral valve is grossly normal. * Significant mitral regurgitation is absent. Aortic Valve * The aortic valve is trileaflet. * The aortic valve opens well. * There is no significant aortic regurgitation. MMode 2D Measurements and Calculations IVSd 1.2 cm IVSs 1.6 cm LVIDd 4.5 cm LVIDs 3.1 cm LVPWd 1.3 cm LVPWs 1.7 cm IVS/LVPW 0.98 FS 29.8 % EDV(Teich) 91.4 ml ESV(Teich) 39.2 ml EF(Teich) 57.1 % EDV(cubed) 89.8 ml ESV(cubed) 31.1 ml EF(cubed) 65.4 % % IVS thick 34.1 % % LVPW thick 32.3 % LV mass(C)d 206.0 grams LV mass(C)dI 112.2 grams/m\S\2 LV mass(C)s 197.5 grams LV mass(C)sI 107.6 grams/m\S\2 SV(Teich) 52.1 ml SI(Teich) 28.4 ml/m\S\2 SV(cubed) 58.7 ml SI(cubed) 32.0 ml/m\S\2 Ao root diam 2.8 cm Ao root area 6.3 cm\S\2 ACS 1.7 cm LA dimension 4.1 cm asc Aorta Diam 2.7 cm LA/Ao 1.4 LVOT diam 2.0 cm LVOT area 3.3 cm\S\2 LVAd ap4 26.1 cm\S\2 LVLd ap4 8.0 cm EDV(MOD-sp4) 71.0 ml LVAs ap4 15.3 cm\S\2 LVLs ap4 7.0 cm ESV(MOD-sp4) 27.0 ml EF(MOD-sp4) 62.0 % LVAd ap2 21.4 cm\S\2 LVLd ap2 6.8 cm EDV(MOD-sp2) 56.0 ml LVAs ap2 11.8 cm\S\2 LVLs ap2 5.5 cm ESV(MOD-sp2) 21.0 ml EF(MOD-sp2) 62.5 % SV(MOD-sp4) 44.0 ml SI(MOD-sp4) 24.0 ml/m\S\2 SV(MOD-sp2) 35.0 ml SI(MOD-sp2) 19.1 ml/m\S\2 Doppler Measurements and Calculations MV E max darius 90.5 cm/sec MV A max darius 121.7 cm/sec MV E/A 0.74 MV dec time 0.18 sec Ao V2 max 141.6 cm/sec Ao max PG 8.0 mmHg Ao max PG (full) 5.2 mmHg TINA(V,A) 2.0 cm\S\2 TINA(V,D) 2.0 cm\S\2 LV V1 max PG 2.9 mmHg LV V1 max 84.5 cm/sec PA V2 max 93.0 cm/sec PA max PG 3.5 mmHg PA acc slope 832.7 cm/sec\S\2 PA acc time 0.11 sec TR max darius 269.0 cm/sec PA pr(Accel) 28.3 mmHg
--- NOTE | 2016-08-10 09:45 | Progress Note ---
Internal Med Progress Note Date of Service: Aug 10, 2016. Provider Documentation: SUBJECTIVE: The patient was seen and examined Complained of SOB,Chills with Sweating and fever before admission Was very weak and BP was noted to be low in ER Required Levophed for a short time only Much better this morning OBJECTIVE: Vital Signs-as noted below Exam: General-no distress at rest Eyes-normal ENT-normal Neck-supple Lungs-Decreased breath sound bilaterally at the bases,Crackles right base Heart-Regular Abdomen-Benign,no masses,bowel sound present Extremities-1+ on right,none on left S/P Right Knee arthroplasty Neuro-AAOx3 Lab data as noted below. ASSESSMENT & PLAN: Acute hypoxemic respiratory failure secondary to COPD exacerbation secondary to pneumonia Presented with Chills,Fever-not documented,SOB and weakness CT-multilobar pneumonia Started on Vanco and Zosyn-continue for now Steroids, nebs for COPD exacerbation Aspiration precautions, swallow eval Await Blood and Urine cultures Clinically a lot better Hypotension Multifactorial-possible sepsis from pneumonia without typical findings, Bacteremia ,recent right Knee surgery,Secondary to hypovolemia and or narcotic induced Possible sepsis (SIRS criteria not met for now) (possible sources : HCAP/ possible aspiration pneumonia as per patient; right knee, recent surgery) R/O and cardiac pathology-doubt Required Fluid resuscitation and followed by Levophed Off Levophed now BP is much better S/P Right TKR Hold recent rx of [id number] narcotics for now until patient more awake Ortho evaluation [place] Likely secondary to Dehydration IVF and monitor Kidney function DM2 on oral meds, reasonable control as of recent A1c Basal insulin, ISS BG goal 140-180 Ongoing tobacco abuse Nicotine patch Nicotine patch Monitor creatinine response IV fluids DVT prophylaxis. Xarelto Full code Transfer to Tele Vital Signs: Date Time Temp Pulse Resp B/P (MAP) Pulse Ox O2 Delivery O2 Flow Rate FiO2 08/10/16 08:00 72 17 114/59 (77) 100 Nasal Cannula 2.0 08/10/16 07:56 74 18 92 Nasal Cannula 3.0 08/10/16 04:00 94 Nasal Cannula 3.0 08/10/16 02:13 71 18 94 Nasal Cannula 3.0 08/10/16 02:11 36.6 73 20 110/54 92 Nasal Cannula 3.0 08/10/16 01:22 68 18 93/62 100 08/10/16 01:12 68 18 93/62 100 Nasal Cannula 2.0 08/10/16 01:06 72 78/42 94 Nasal Cannula 2.0 08/10/16 00:00 75 19 82/52 97 Nasal Cannula 2.0 08/09/16 23:31 73 20 71/38 97 Nasal Cannula 2.0 08/09/16 23:12 74 22 74/53 97 Nasal Cannula 2.0 08/09/16 22:21 78 16 73/44 93 Nasal Cannula 4.0 08/09/16 22:20 73 08/09/16 22:17 72 18 69/47 91 Nasal Cannula 4.0 08/09/16 22:10 76 18 46/31 91 Nasal Cannula 4.0 08/09/16 21:40 36.9 79 18 66/46 91 Room Air Lab Results: Results Past 24 Hours Test 08/09/16 21:55 08/09/16 22:01 08/09/16 22:32 08/09/16 22:35 Range/Units White Blood Count 8.44 4.8-10.8 K/uL Red Blood Count 2.99 4.2-5.4 M/uL Hemoglobin 9.1 12.0-16.0 g/dL Hematocrit 27.7 37-47 % Mean Corpuscular Volume 92.6 80-100 fL Mean Corpuscular Hemoglobin 30.4 25-34 pg Mean Corpuscular Hemoglobin Concent 32.9 32-36 g/dl Platelet Count 245 130-400 K/uL Mean Platelet Volume 10.8 7.4-10.4 fL Neutrophils (%) (Auto) 88.0 % Lymphocytes (%) (Auto) 6.4 % Monocytes (%) (Auto) 4.6 % Eosinophils (%) (Auto) 0.8 % Basophils (%) (Auto) 0.1 % Neutrophils # (Auto) 7.42 1.4-6.5 K/uL Lymphocytes # (Auto) 0.54 1.2-3.4 K/uL Monocytes # (Auto) 0.39 0.11-0.59 K/uL Eosinophils # (Auto) 0.07 0-0.5 K/uL Basophils # (Auto) 0.01 0-0.2 K/uL RDW Standard Deviation 50.8 36.4-46.3 fL RDW Coefficient of Variation 15.0 11.5-14.5 % Immature Granulocyte % (Auto) 0.1 % Immature Granulocyte # (Auto) 0.01 0.00-0.02 K/uL Activated Partial Thromboplast Time 25.7 21.0-31.0 SECONDS Partial Thromboplastin Ratio 1.0 Sodium Level 140 136-145 mmol/L Potassium Level 4.1 3.5-5.1 mmol/L Chloride Level 107 98-107 mmol/L Carbon Dioxide Level 23 21-32 mmol/L Anion Gap 10.0 19.0 16-25 mmol/L Blood Urea Nitrogen 25 7-18 mg/dl Creatinine 1.40 0.60-1.20 mg/dl Est Creatinine Clear Calc Drug Dose 40.3 ml/min Estimated GFR () 47.2 Estimated GFR (Non- 40.7 BUN/Creatinine Ratio 17.6 10-20 Random Glucose 216 70-99 mg/dl Calcium Level 8.0 8.5-10.1 mg/dl Magnesium Level 1.8 1.8-2.4 mg/dl Total Bilirubin 0.4 0.2-1 mg/dl Direct Bilirubin 0.1 0-0.2 mg/dl Aspartate Amino Transf (AST/SGOT) 11 15-37 U/L Alanine Aminotransferase (ALT/SGPT) 12 12-78 U/L Alkaline Phosphatase 64 45-117 U/L Total Protein 5.7 6.4-8.2 gm/dl Albumin 2.5 3.4-5.0 gm/dl Thyroid Stimulating Hormone (TSH) 1.110 0.300-4.500 uIu/ml Bedside Hemoglobin 9.2 12.0-16.0 g/dl Bedside Hematocrit 27 37-47 % Bedside Sodium 139 135-144 mEq/L Bedside Potassium 4.1 3.3-5.0 mEq/L Bedside Chloride 103 101-112 mEq/L Bedside Total CO2 22 24-31 mEq/l Bedside Blood Urea Nitrogen 24 7-18 mg/dl Bedside Creatinine 1.2 0.6-1.3 mg/dl Bedside Glucose (other) 225 70-99 mg/dl Bedside Ionized Calcium (Nata) 1.10 1.12-1.32 mmol/l Bedside Troponin I 0.060 0-0.045 ng/ml Urine Color DK YELLOW Urine Appearance CLEAR CLEAR Urine pH 5.0 4.5-7.5 Urine Specific [place] 1.024 1.000-1.030 Urine Protein NEG NEG Urine Glucose (UA) NEG NEG Urine Ketones TRACE NEG Urine Occult Blood NEG NEG Urine Nitrite NEG NEG Urine Bilirubin NEG NEG Urine Urobilinogen NEG NEG Urine Leukocyte Esterase NEG NEG Test 08/09/16 23:46 08/10/16 00:05 08/10/16 02:02 08/10/16 02:23 Range/Units Bedside Lactic Acid Venous 2.00 0.90-1.70 mmol/L Troponin I 0.160 0-0.045 ng/ml Lactic Acid Level 1.9 0.4-2.0 mmol/L Bedside Glucose 213 70-90 mg/dl Test 08/10/16 02:59 08/10/16 05:41 Range/Units Urine Opiates Screen POS NEG Urine Methadone, Qualitative NEG NEG Urine Barbiturates NEG NEG Urine Phencyclidine (PCP) Level NEG NEG Ur Amphetamine/Methamphetamine NEG NEG MDMA (Ecstasy) Screen NEG NEG Urine Benzodiazepines Screen NEG NEG Urine Cocaine Metabolite NEG NEG Urine Marijuana (THC) NEG NEG White Blood Count 9.59 4.8-10.8 K/uL Red Blood Count 2.96 4.2-5.4 M/uL Hemoglobin 9.0 12.0-16.0 g/dL Hematocrit 27.7 37-47 % Mean Corpuscular Volume 93.6 80-100 fL Mean Corpuscular Hemoglobin 30.4 25-34 pg Mean Corpuscular Hemoglobin Concent 32.5 32-36 g/dl Platelet Count 206 130-400 K/uL Mean Platelet Volume 10.7 7.4-10.4 fL Neutrophils (%) (Auto) 91.6 % Lymphocytes (%) (Auto) 4.9 % Monocytes (%) (Auto) 3.2 % Eosinophils (%) (Auto) 0.1 % Basophils (%) (Auto) 0.0 % Neutrophils # (Auto) 8.78 1.4-6.5 K/uL Lymphocytes # (Auto) 0.47 1.2-3.4 K/uL Monocytes # (Auto) 0.31 0.11-0.59 K/uL Eosinophils # (Auto) 0.01 0-0.5 K/uL Basophils # (Auto) 0.00 0-0.2 K/uL RDW Standard Deviation 51.5 36.4-46.3 fL RDW Coefficient of Variation 15.2 11.5-14.5 % Immature Granulocyte % (Auto) 0.2 % Immature Granulocyte # (Auto) 0.02 0.00-0.02 K/uL Sodium Level 138 136-145 mmol/L Potassium Level 4.6 3.5-5.1 mmol/L Chloride Level 110 98-107 mmol/L Carbon Dioxide Level 23 21-32 mmol/L Anion Gap 5.0 3-11 mmol/L Blood Urea Nitrogen 22 7-18 mg/dl Creatinine 1.00 0.60-1.20 mg/dl Est Creatinine Clear Calc Drug Dose 59.2 ml/min Estimated GFR () 70.9 Estimated GFR (Non- 61.2 BUN/Creatinine Ratio 22.3 10-20 Random Glucose 173 70-99 mg/dl Calcium Level 7.9 8.5-10.1 mg/dl Troponin I 0.242 0-0.045 ng/ml Microbiology Results 08/09/16 Blood Culture, Received Pending 08/09/16 Blood Culture, Received Pending 08/10/16 MRSA DNA Surveillance Screen - Final, Complete Specimen Negative for MRSA by DNA Probe
--- NOTE | 2016-08-10 10:20 | Critical Care Consultation ---
Critical Care Consultation Date of Consultation: Aug 10, 2016. Attending Physician: Thaddeus Sanford M.D. Reason for Consultation: Hypotension History of Present Illness Chief complaint: Cough and shortness of breath The patient is a 61-year-old woman with a history of chronic obstructive pulmonary disease and ongoing tobacco use who presented to the emergency department with complaints of shortness of breath and cough. She also had a right knee replacement 5 days ago and has been on Xarelto. She tells me she thinks she's been doing relatively well since her surgery but that yesterday she felt chilled and started sweating. She had a dry cough which caused her to be short of breath and after several hours she decided to seek medical attention. In the emergency department she had a chest x-ray which showed a left lower lobe pneumonia. She had a CT of her brain which showed no acute process. CT angiogram of the chest showed no evidence for pulmonary embolus, dense airspace consolidation throughout the left lower lobe, mild patchy airspace consolidation in the left upper lobe and at the right lung base. Trace left pleural effusion and a 3.5 cm low attenuation lesion in the right lobe of the liver and hepatic steatosis. She was given normal saline, 1 L and then 200 mL per hour. She also received Zosyn, Solu-Medrol, Benadryl, Levaquin, Narcan and some norepinephrine. There may have been concerned about polypharmacy as she was very drowsy but she tells me that she believes she has been taking her medications properly. Her daughter is now helping to manage her medications as of yesterday. Of note, she may have had a temperature of 102 F at home. She denies headache but has felt dizzy. Generally she felt weak and denies focal weakness. Her cough has been nonproductive and she feels she has been eating and drinking appropriately. She denies chest pain nausea or vomiting. She has no constipation or diarrhea. She was started on norepinephrine in the emergency department. By report from the nursing staff, it will was weaned off shortly after her arrival to the ICU. There've been no events since her arrival in the ICU. Past Medical/Surgical History Hypertension Diabetes mellitus Hyperlipidemia Chronic obstructive pulmonary disease Chronic pain for which she takes Percocet section 3 Left knee replacement Hernia repair 3 Cholecystectomy Carpal tunnel release 2 Family History Noncontributory Social History She has smoked at least a half pack of cigarettes per day for 30-40 years. She rarely drinks alcohol. She is trying to get disability for her medical problems. Smoking Status: Current Every Day Smoker Marital Status: Housing Status: lives with family Occupation Status: retired Allergies Coded Allergies: Latex2 -Systemic Allergic Response (Verified Allergy, Unknown, SWELLING THROAT SWELLS, 08/05/16) Aspirin (Verified Adverse Reaction, Unknown, NAUSEA, 08/05/16) Home Medications Scheduled Acetaminophen (Tylenol), 1,000 MG PO TID Amlodipine Besylate-Benazepril (Amlodipine Besylate/Benaz), 1 CAP PO QAM Celecoxib (CeleBREX), 200 MG PO BID Cyanocobalamin (Vitamin B-12), 50 MCG PO QAM Duloxetine Hcl (Cymbalta), 90 MG PO QAM Estrogens, Conjugated (Premarin), 0.625 MG PO QAM Eszopiclone (Lunesta), 3 MG PO DAILY Ferrous Gluconate (Ferrous Gluconate), 324 MG PO BIDM Hydrochlorothiazide (Hctz), 25 MG PO QAM Melatonin (Melatonin Maximum Strengt), 20 MG PO HS Metformin Hcl (Glucophage), 1,000 MG PO BID Metoprolol Tartrate (Lopressor) (Lopressor), 50 MG PO BID Morphine Cont Rel (Ms Contin), 15 MG PO Q12 Pregabalin (Lyrica), 200 MG PO TID Rivaroxaban (Xarelto), 10 MG PO DAILY Simvastatin (Zocor), 20 MG PO QPM [Vitamin B12], 50 MCG PO QAM Scheduled PRN Albuterol Hfa (Ventolin Hfa), 2 PUFFS INH Q6H PRN for SOB/Wheezing Ipratropium-Albuterol (Combivent Respimat), 1 PUFFS INH QID PRN for PRN Oxycodone Ir (Roxicodone Ir), 5-10 MG PO Q6H PRN for Pain Tizanidine (Zanaflex), 4 MG PO TID PRN for UNDECIDED Current Inpatient Medications Current Inpatient Medications Medications (Trade) Dose Ordered Sig/Luis Route Start Time Stop Time Status Last Admin Dose Admin Ioversol (Optiray 320) 100 ml UD PRN IV 08/10/16 00:00 08/14/16 00:00 Glucose (Glucose 40% Gel) 15-30 GRAMS 15 GRAMS... UD PRN PO 08/10/16 01:00 09/09/16 00:59 Glucose (Glucose Chew Tab) 4-8 Tablets 4 Tabl... UD PRN PO 08/10/16 01:00 09/09/16 00:59 Dextrose (Dextrose 50% 50ML Syringe) 25-50ML OF 50% DW IV FOR... UD PRN IV 08/10/16 01:00 09/09/16 00:59 Glucagon (Glucagon Inj) 1 mg UD PRN SQ 08/10/16 01:00 09/09/16 00:59 Albuterol/ Ipratropium (Duoneb) 3 ml Q2H PRN INH 08/10/16 01:00 09/09/16 00:59 Prednisone (PredniSONE TAB) 40 mg DAILY PO 08/10/16 09:00 08/15/16 08:59 08/10/16 08:45 40 MG Piperacillin Sod/ Tazobactam Sod (Consult) 1 ea UD PRN N/A 08/10/16 01:09 09/09/16 01:08 Acetaminophen (Tylenol Tab) 650 mg Q4H PRN PO 08/10/16 01:00 09/09/16 00:59 Nitroglycerin (Nitrostat Tab) 0.4 mg UD PRN SL 08/10/16 01:00 09/09/16 00:59 Insulin Aspart (novoLOG ASPART) SLIDING SCALE If C... ACHS SC 08/10/16 06:45 09/09/16 06:59 08/10/16 08:58 2 UNITS Vancomycin HCl (Consult) 1 ea UD PRN N/A 08/10/16 01:15 09/09/16 01:14 Duloxetine HCl (Cymbalta Cap) 90 mg QAM PO 08/10/16 09:00 09/09/16 08:59 08/10/16 08:45 90 MG Ferrous Gluconate (Ferrous Gluconate Tab) 324 mg BIDM PO 08/10/16 07:15 09/09/16 07:59 08/10/16 08:46 324 MG Pregabalin (Lyrica Cap) 100 mg TID PO 08/10/16 09:00 09/09/16 08:59 08/10/16 08:51 100 MG Simvastatin (Zocor Tab) 20 mg QPM PO 08/10/16 21:00 09/09/16 20:59 Ondansetron HCl (Zofran Inj) 4 mg Q6H PRN IV 08/10/16 01:15 09/09/16 01:14 Oxycodone/ Acetaminophen (Percocet 5-325mg Tab) 1 tab Q4H PRN PO 08/10/16 01:15 08/24/16 01:14 08/10/16 08:52 1 TAB Ipratropium [place] (Atrovent 0.02% 0.5MG/2.5ML Neb) 0.5 mg Q6R INH 08/10/16 03:00 09/09/16 02:59 08/10/16 07:54 0.5 MG Levalbuterol (Xopenex 1.25MG/ 0.5ML Neb) 1.25 mg Q6R INH 08/10/16 03:00 09/09/16 02:59 08/10/16 07:54 1.25 MG Nicotine (Nicoderm Cq 14MG Patch) 1 patch QAM TD 08/10/16 09:00 09/09/16 08:59 08/10/16 08:44 1 PATCH Miscellaneous (Remove Nicoderm Patch) 1 ea HS N/A 08/10/16 21:00 09/09/16 20:59 Insulin Glargine (Lantus Solostar Pen) 5 units BID SC 08/10/16 09:00 09/09/16 08:59 08/10/16 08:59 5 UNITS Piperacillin Sod/ Tazobactam Sod 3.375 gm/Dextrose 115 ml @ 28.75 mls/ hr Q8@0600,1400,2200 IV 08/10/16 06:00 08/17/16 05:59 08/10/16 06:05 28.75 MLS/HR Rivaroxaban (Xarelto Tab) 10 mg DAILY PO 08/10/16 09:00 09/09/16 08:59 08/10/16 08:46 10 MG Sodium Chloride 1,000 ml @ 100 mls/hr Q10H ONCE IV 08/10/16 03:45 08/10/16 13:44 08/10/16 03:50 100 MLS/HR Hydromorphone HCl (Dilaudid Inj) 0.3 mg Q4H PRN IV 08/10/16 09:15 08/24/16 01:14 Review of Systems The patient reports diffuse pain which is chronic. She sometimes has a cough in the morning. Her right knee pain is getting better after her surgery. She has right lower extremity swelling but that is unchanged. She denies hemoptysis melena and bright red blood per rectum. Additional review of systems was obtained. And is negative or noncontributory in a 12 point system other than what is presented in the history of present illness. Physical Exam Date Time Temp Pulse Resp B/P (MAP) Pulse Ox O2 Delivery O2 Flow Rate FiO2 08/10/16 08:00 72 17 114/59 (77) 100 Nasal Cannula 2.0 08/10/16 08:00 92 Room Air 08/10/16 07:56 74 18 92 Nasal Cannula 3.0 08/10/16 04:00 94 Nasal Cannula 3.0 08/10/16 02:13 71 18 94 Nasal Cannula 3.0 08/10/16 02:11 36.6 73 20 110/54 92 Nasal Cannula 3.0 08/10/16 01:22 68 18 93/62 100 08/10/16 01:12 68 18 93/62 100 Nasal Cannula 2.0 08/10/16 01:06 72 78/42 94 Nasal Cannula 2.0 08/10/16 00:00 75 19 82/52 97 Nasal Cannula 2.0 08/09/16 23:31 73 20 71/38 97 Nasal Cannula 2.0 08/09/16 23:12 74 22 74/53 97 Nasal Cannula 2.0 08/09/16 22:21 78 16 73/44 93 Nasal Cannula 4.0 08/09/16 22:20 73 08/09/16 22:17 72 18 69/47 91 Nasal Cannula 4.0 08/09/16 22:10 76 18 46/31 91 Nasal Cannula 4.0 08/09/16 21:40 36.9 79 18 66/46 91 Room Air General: She is awake alert and sitting in a chair without oxygen in no acute distress Neuro: Pupils are equally round and reactive to light. No facial droop. Tongue midline. She is easily able to carry on a conversation. Strength equal in the upper and lower extremities with the exception of the right lower extremity which is limited secondary to pain. Lungs: Decreased breath sounds throughout, more so in the left base. No rales rhonchi or wheezes. Heart: Regular rate and rhythm, no murmurs Abdomen: Limited exam due to her seated position. It is firm but nontender. Active bowel sounds. Extremities: The right leg and knee are edematous. The incision is in tact as are the aleah. There is some ecchymosis on the lateral active aspect of the right knee. 1+ edema from the knee distally on the right. No edema in the left leg. Laboratory Results Last 24 Hours Test 08/09/16 21:55 08/09/16 22:01 08/09/16 22:32 08/09/16 22:35 White Blood Count 8.44 K/uL Red Blood Count 2.99 M/uL Hemoglobin 9.1 g/dL Hematocrit 27.7 % Mean Corpuscular Volume 92.6 fL Mean Corpuscular Hemoglobin 30.4 pg Mean Corpuscular Hemoglobin Concent 32.9 g/dl Platelet Count 245 K/uL Mean Platelet Volume 10.8 fL Neutrophils (%) (Auto) 88.0 % Lymphocytes (%) (Auto) 6.4 % Monocytes (%) (Auto) 4.6 % Eosinophils (%) (Auto) 0.8 % Basophils (%) (Auto) 0.1 % Neutrophils # (Auto) 7.42 K/uL Lymphocytes # (Auto) 0.54 K/uL Monocytes # (Auto) 0.39 K/uL Eosinophils # (Auto) 0.07 K/uL Basophils # (Auto) 0.01 K/uL RDW Standard Deviation 50.8 fL RDW Coefficient of Variation 15.0 % Immature Granulocyte % (Auto) 0.1 % Immature Granulocyte # (Auto) 0.01 K/uL Activated Partial Thromboplast Time 25.7 SECONDS Partial Thromboplastin Ratio 1.0 Sodium Level 140 mmol/L Potassium Level 4.1 mmol/L Chloride Level 107 mmol/L Carbon Dioxide Level 23 mmol/L Anion Gap 10.0 mmol/L 19.0 mmol/L Blood Urea Nitrogen 25 mg/dl Creatinine 1.40 mg/dl Est Creatinine Clear Calc Drug Dose 40.3 ml/min Estimated GFR () 47.2 Estimated GFR (Non- 40.7 BUN/Creatinine Ratio 17.6 Random Glucose 216 mg/dl Calcium Level 8.0 mg/dl Magnesium Level 1.8 mg/dl Total Bilirubin 0.4 mg/dl Direct Bilirubin 0.1 mg/dl Aspartate Amino Transf (AST/SGOT) 11 U/L Alanine Aminotransferase (ALT/SGPT) 12 U/L Alkaline Phosphatase 64 U/L Total Protein 5.7 gm/dl Albumin 2.5 gm/dl Thyroid Stimulating Hormone (TSH) 1.110 uIu/ml Bedside Hemoglobin 9.2 g/dl Bedside Hematocrit 27 % Bedside Sodium 139 mEq/L Bedside Potassium 4.1 mEq/L Bedside Chloride 103 mEq/L Bedside Total CO2 22 mEq/l Bedside Blood Urea Nitrogen 24 mg/dl Bedside Creatinine 1.2 mg/dl Bedside Glucose (other) 225 mg/dl Bedside Ionized Calcium (Nata) 1.10 mmol/l Bedside Troponin I 0.060 ng/ml Urine Color DK YELLOW Urine Appearance CLEAR Urine pH 5.0 Urine Specific [place] 1.024 Urine Protein NEG Urine Glucose (UA) NEG Urine Ketones TRACE Urine Occult Blood NEG Urine Nitrite NEG Urine Bilirubin NEG Urine Urobilinogen NEG Urine Leukocyte Esterase NEG Test 08/09/16 23:46 08/10/16 00:05 08/10/16 02:02 08/10/16 02:23 Bedside Lactic Acid Venous 2.00 mmol/L Troponin I 0.160 ng/ml Lactic Acid Level 1.9 mmol/L Bedside Glucose 213 mg/dl Test 08/10/16 02:59 08/10/16 05:41 Urine Opiates Screen POS Urine Methadone, Qualitative NEG Urine Barbiturates NEG Urine Phencyclidine (PCP) Level NEG Ur Amphetamine/Methamphetamine NEG MDMA (Ecstasy) Screen NEG Urine Benzodiazepines Screen NEG Urine Cocaine Metabolite NEG Urine Marijuana (THC) NEG White Blood Count 9.59 K/uL Red Blood Count 2.96 M/uL Hemoglobin 9.0 g/dL Hematocrit 27.7 % Mean Corpuscular Volume 93.6 fL Mean Corpuscular Hemoglobin 30.4 pg Mean Corpuscular Hemoglobin Concent 32.5 g/dl Platelet Count 206 K/uL Mean Platelet Volume 10.7 fL Neutrophils (%) (Auto) 91.6 % Lymphocytes (%) (Auto) 4.9 % Monocytes (%) (Auto) 3.2 % Eosinophils (%) (Auto) 0.1 % Basophils (%) (Auto) 0.0 % Neutrophils # (Auto) 8.78 K/uL Lymphocytes # (Auto) 0.47 K/uL Monocytes # (Auto) 0.31 K/uL Eosinophils # (Auto) 0.01 K/uL Basophils # (Auto) 0.00 K/uL RDW Standard Deviation 51.5 fL RDW Coefficient of Variation 15.2 % Immature Granulocyte % (Auto) 0.2 % Immature Granulocyte # (Auto) 0.02 K/uL Sodium Level 138 mmol/L Potassium Level 4.6 mmol/L Chloride Level 110 mmol/L Carbon Dioxide Level 23 mmol/L Anion Gap 5.0 mmol/L Blood Urea Nitrogen 22 mg/dl Creatinine 1.00 mg/dl Est Creatinine Clear Calc Drug Dose 59.2 ml/min Estimated GFR () 70.9 Estimated GFR (Non- 61.2 BUN/Creatinine Ratio 22.3 Random Glucose 173 mg/dl Calcium Level 7.9 mg/dl Troponin I 0.242 ng/ml Diagnostic Results Echocardiogram, 08/10/16 * -- Conclusions -- * The left ventricle is normal in size. * There is mild concentric left ventricular hypertrophy. * Left ventricular systolic function is normal. * Ejection Fraction = 60-65%. * The right ventricular systolic function is normal. * The left atrial size is normal. * Right atrial size is normal. * Grossly normal valvular structure and function. CT of the right lower extremity 08/10/16 IMPRESSION: 1. Diffuse subcutaneous soft tissue edema and fluid is seen around the knee. No organized fluid collection is identified to suggest hematoma as clinically queried. 2. No acute bony abnormality is identified noting a right knee arthroplasty in place. Streak artifact from the arthroplasty significantly degrades the examination. 3. There is a joint effusion, and foci of gas are present within the joint space. This is nonspecific and likely related to recent surgery. Clinical correlation will be required. CT chest results as per history of present illness. Assessment & Plan 1. Multifocal pneumonia 2. Status post right knee replacement on 09/06/2016, she continues on Xarelto 3. Hypotension, resolved, I suspect this is secondary to volume depletion but it could've also been due to developing sepsis. 4. Acute kidney injury, improved 5. Diabetes mellitus with hyperglycemia, likely noncompliance from my conversation with her. She was very thirsty yesterday so she decided to drink 2 bottles of Pepsi. 6. Encephalopathy in the emergency department, improved. Again this may have been secondary to developing sepsis or polypharmacy. 7. Anemia, no signs of acute blood loss, hemoglobin in June was 13.5. She was on iron as an outpatient. 8. Chronic obstructive pulmonary disease, being treated with bronchodilators and prednisone for a possible acute exacerbation. She is not wheezing and not retaining carbon dioxide based on her ABG last night. 9. History of hypertension 10. Liver lesion in the right lobe. Plan: Neuro: I agree with holding her Zanaflex and her Roxicodone as well as MS Contin , melatonin and Lunesta. Continue Percocet for pain. Consider consulting pain management and watch for opioid withdrawal. Continue Cymbalta. Pulmonary: Continue antibiotics, prednisone and bronchodilators. Cardiovascular: Hold amlodipine. Renal: Continue IV fluids. GI: Allow a diabetic diet. I will start Colace. I do not leave she needs GI prophylaxis. Follow up liver lesion as an outpatient. Heme: Continue Xarelto for DVT prophylaxis. Consider iron studies. Endocrine: Sliding scale insulin. She could benefit from some diabetic teaching as well. Infectious disease: Continue Zosyn and vancomycin. Attempt to obtain sputum culture. Follow blood cultures. I will order physical therapy and occupational therapy. I think she is stable for transfer out of the intensive care unit.
--- NOTE | 2016-08-10 10:21 | Pharmacy Progress Note ---
Pharmacy Abx Initial Consult Date of Service Aug 10, 2016. Pharmacy Dosing Scope Date of Consult: 08/10/16 Consultation requested by: Dr. Whittington Pharmacy is consulted to initiate Vanco/Zosyn IV/PO dosing therapy, order appropriate labs and adjust drug dose/frequency. Subjective The patient is a 61 year old female admitted on Aug 10, 2016 at 00:44. Objective Height (Feet): 5 Height (Inches): 2.00 Weight (Kilograms): 81.500 Vital Signs (Past 12Hrs) Vital Signs Past 12 Hours Date Time Temp Pulse Resp B/P (MAP) Pulse Ox O2 Delivery O2 Flow Rate FiO2 08/10/16 08:00 72 17 114/59 (77) 100 Nasal Cannula 2.0 08/10/16 08:00 92 Room Air 08/10/16 07:56 74 18 92 Nasal Cannula 3.0 08/10/16 04:00 94 Nasal Cannula 3.0 08/10/16 02:13 71 18 94 Nasal Cannula 3.0 08/10/16 02:11 36.6 73 20 110/54 92 Nasal Cannula 3.0 08/10/16 01:22 68 18 93/62 100 08/10/16 01:12 68 18 93/62 100 Nasal Cannula 2.0 08/10/16 01:06 72 78/42 94 Nasal Cannula 2.0 08/10/16 00:00 75 19 82/52 97 Nasal Cannula 2.0 08/09/16 23:31 73 20 71/38 97 Nasal Cannula 2.0 08/09/16 23:12 74 22 74/53 97 Nasal Cannula 2.0 08/09/16 22:21 78 16 73/44 93 Nasal Cannula 4.0 08/09/16 22:20 73 08/09/16 22:17 72 18 69/47 91 Nasal Cannula 4.0 Lab Results (24Hrs) Laboratory Tests (24 Hours) Test 08/10/16 02:02 08/10/16 05:41 Lactic Acid Level 1.9 mmol/L (0.4-2.0) White Blood Count 9.59 K/uL (4.8-10.8) Red Blood Count 2.96 M/uL (4.2-5.4) L Hemoglobin 9.0 g/dL (12.0-16.0) L Hematocrit 27.7 % (37-47) L Mean Corpuscular Volume 93.6 fL (80-100) Mean Corpuscular Hemoglobin 30.4 pg (25-34) Mean Corpuscular Hemoglobin Concent 32.5 g/dl (32-36) Platelet Count 206 K/uL (130-400) Mean Platelet Volume 10.7 fL (7.4-10.4) H Neutrophils (%) (Auto) 91.6 % Lymphocytes (%) (Auto) 4.9 % Monocytes (%) (Auto) 3.2 % Eosinophils (%) (Auto) 0.1 % Basophils (%) (Auto) 0.0 % Neutrophils # (Auto) 8.78 K/uL (1.4-6.5) H Lymphocytes # (Auto) 0.47 K/uL (1.2-3.4) L Monocytes # (Auto) 0.31 K/uL (0.11-0.59) Eosinophils # (Auto) 0.01 K/uL (0-0.5) Basophils # (Auto) 0.00 K/uL (0-0.2) Micro Results Date/Time Source Procedure Growth Status 08/09/16 21:55 Blood Blood Culture Pending Received 08/09/16 21:55 Blood Blood Culture Pending Received 08/10/16 01:53 Nasal MRSA DNA Surveillance Screen - Final Specimen Negative for MRSA by DNA Probe Complete Risk Factors for Resistance * Hospitalization for 48 hours or more within the past 90 days Assessment & Plan Pt is a 61yo F pw hypoTN and SOB to ED. HAP vs Aspiration PNA vs SIRS. Concurrently being treated with Vanco/Zosyn. At the present she is afebrile, HR/ RR WNL, WBC WNL but w a left shift. CXR ordered and possible PNA. She was recently hospitalized due to an orthopedic procedure. Pts renal fxn is not at baseline. Current pt population p'kinetics: t1/2=12.9hrs, ke=0.0534. BC are both pending, MRSA nasal swab is negative. Consider d/c'ing Vanco in 24-48hrs if she shows clinical improvement? No h/o MDRO. Vanco: * Vanco 1850mg (23mg/kg) x1 at 0103 * Vanco 1250(15mg/kg) q14 (interval slightly more aggressive in hopes that her renal fxn will return to baseline) * Trough ordered for 08/12/16 @ 0530 * Goal trough 15-20mcg/mL for r/o HAP Zosyn: Dosed appropriately based on clinical status and eCrCl>20cc/min Pharmacy will continue to follow and will adjust dose/frequency as necessary. Thank you.
[2016-08-10] MEDS: VANCOMYCIN INJ 1,250 MG in SODIUM CHLORIDE 0.9% 250ML 250 ML IV SCH (11:40)
[2016-08-10] MEDS: DOCUSATE SODIUM 100 MG CAP PO SCH (20:00)
[2016-08-10] MEDS ORDERED: SIMVASTATIN 20 MG TAB PO SCH (21:00)
[2016-08-10] MEDS ORDERED: INSULIN GLARGINE SOLOSTAR 100 UNITS/ML 3 ML PEN SC SCH (21:00)
[2016-08-11] VITALS (12 sets, daily range): BP systolic 157–180; BP diastolic 80–101; PULSE 70–87; TEMP 36.5–36.9; O2SAT 93–96
[2016-08-11] MEDS ORDERED: LORAZEPAM 0.5 MG TAB PO ONE (00:08)
[2016-08-11] MEDS: IPRATROPIUM BROMIDE NEB SOLN 0.02% 2.5 ML VIAL INH SCH ×3 (01:36→14:22)
[2016-08-11] MEDS: LEVALBUTEROL 1.25MG/0.5ML NEB INH SCH ×3 (01:37→14:22)
[2016-08-11] MEDS: VANCOMYCIN INJ 1,250 MG in SODIUM CHLORIDE 0.9% 250ML 250 ML IV SCH (02:35)
[2016-08-11] MEDS: OXYCODONE/ACETAMINOPHEN 5-325 TAB PO PRN ×4 (03:10→17:34)
[2016-08-11] MEDS: PIPERACILL/TAZOBAC IV 3.375 GM in DEXTROSE 5% 100ML IV SCH (05:38)
[2016-08-11] MEDS ORDERED: METOPROLOL TARTRATE 50 MG TAB PO ONE (06:03)
[2016-08-11 06:15] LABS: BASO % 0.1 %; BASO ABS # 0.01 K/uL (0-0.2); HEMATOCRIT 26.4 % (37-47); IG% 0.1 %; LYMPH % 16.2 %; MEAN CELL VOLUME 91.3 fL (80-100); MEAN CORPUSCULAR HEMOGLOBIN 28.7 pg (25-34); MEAN CORPUSCULAR HGB CONC 31.4 g/dl (32-36); MEAN PLATELET VOLUME 10.7 fL (7.4-10.4); MONO % 7.7 %; NEUT % 74.9 %; PLATELET COUNT 228 K/uL (130-400); RED BLOOD COUNT 2.89 M/uL (4.2-5.4); WHITE BLOOD COUNT 11.08 K/uL (4.8-10.8)
[2016-08-11 06:59] LABS: COMPLETE YES; POLYCHROMASIA 1+
[2016-08-11] MEDS: INSULIN ASPART 100 UNITS/ML 3 ML PEN SC SCH ×3 (07:00→17:00)
[2016-08-11 07:08] LABS: CALCIUM 8.7 mg/dl (8.5-10.1); CREATININE 0.73 mg/dl (0.60-1.20); POTASSIUM 3.7 mmol/L (3.5-5.1)
[2016-08-11] MEDS: FERROUS GLUCONATE 324 MG TAB PO SCH ×2 (07:30→17:24)
[2016-08-11] MEDS: DULOXETINE (CYMBALTA) 30 MG CAP PO SCH (07:44)
[2016-08-11] MEDS: DOCUSATE SODIUM 100 MG CAP PO SCH (07:44)
[2016-08-11] MEDS: NICOTINE 14 MG/24 HR TDSY TD SCH (07:45)
[2016-08-11] MEDS: RIVAROXABAN 10 MG TAB PO SCH (07:45)
[2016-08-11] MEDS: PREGABALIN 100 MG CAP PO SCH ×2 (07:52→14:39)
[2016-08-11] MEDS: INSULIN GLARGINE SOLOSTAR 100 UNITS/ML 3 ML PEN SC SCH (07:54)
[2016-08-11] MEDS ORDERED: NURSING VERBAL MED ORDER ONE ×2 (08:30→09:45)
[2016-08-11] MEDS ORDERED: HYDROCHLOROTHIAZIDE 25 MG TAB PO SCH (09:00)
[2016-08-11] MEDS ORDERED: IPRATROPIUM BROMIDE/ALBUTEROL respimat INH INH PRN (09:30)
[2016-08-11] MEDS ORDERED: ALBUTEROL HFA 8 GM INHALER INH PRN (09:30)
[2016-08-11] MEDS ORDERED: ENALAPRIL MALEATE 10 MG TAB PO ONE (10:00)
[2016-08-11] MEDS ORDERED: AMLODIPINE BESYLATE 5 MG TAB PO ONE (10:00)
--- NOTE | 2016-08-11 12:48 | Progress Note ---
Internal Med Progress Note Date of Service: Aug 11, 2016. Provider Documentation: SUBJECTIVE: The patient was seen and examined Complained of SOB,Chills with Sweating and fever before admission Was very weak and BP was noted to be low in ER Required Levophed for a short time only Much better this morning Ambulating and wants to go home Complains some pain in right Knee joint OBJECTIVE: Vital Signs-as noted below Exam: General-no distress at rest Eyes-normal ENT-normal Neck-supple Lungs-Decreased breath sound bilaterally at the bases,Crackles right base Heart-Regular,no murmur appreciated Abdomen-Benign,no masses,bowel sound present Extremities-1+ on right,none on left S/P Right Knee arthroplasty Neuro-AAOx3 Lab data as noted below. ASSESSMENT & PLAN: Acute hypoxemic respiratory failure secondary to COPD exacerbation secondary to pneumonia Presented with Chills,Fever-not documented,SOB and weakness CT-multilobar pneumonia Started on Vanco and Zosyn-continued until 08/11/16 Steroids, nebs for COPD exacerbation Aspiration precautions, Await Blood and Urine cultures-negative MRSA screen -negative Clinically a lot better Recheck CXR-if not worse will discharge on Oral Levaquin Hypotension Multifactorial-possible sepsis from pneumonia without typical findings, Bacteremia ,recent right Knee surgery,Secondary to hypovolemia and or narcotic induced Possible sepsis (SIRS criteria not met for now) (possible sources : HCAP/ possible aspiration pneumonia as per patient; right knee, recent surgery) R/O and cardiac pathology-doubt Required Fluid resuscitation and followed by Levophed Off Levophed now BP is elevated Medications restarted S/P Right TKR Hold recent rx of noiyg-glx-iscwk narcotics for now until patient more awake Ortho evaluation-pending MADISON Likely secondary to Dehydration IVF and monitor Kidney function DM2 on oral meds, reasonable control as of recent A1c Basal insulin, ISS BG goal 140-180 Ongoing tobacco abuse Nicotine patch Nicotine patch Monitor creatinine response IV fluids DVT prophylaxis. Xarelto Full code Wants to go home Voiced that it may be too early Check CXR-in not any worse will discharge Vital Signs: Date Time Temp Pulse Resp B/P (MAP) Pulse Ox O2 Delivery O2 Flow Rate FiO2 08/11/16 11:49 36.6 81 16 177/101 (126) 95 Room Air 08/11/16 08:20 71 160/92 (114) 176/91 (119) 08/11/16 08:00 Room Air 08/11/16 07:57 36.6 81 16 180/97 (124) 93 Room Air 08/11/16 07:47 76 18 93 Room Air 08/11/16 05:44 86 180/94 (122) 08/11/16 04:00 Room Air 08/11/16 03:18 36.9 87 20 174/99 (124) 96 Room Air 08/11/16 00:00 Room Air 08/10/16 23:15 36.8 84 16 151/82 (105) 93 Room Air 08/10/16 21:10 Room Air 08/10/16 19:18 82 18 94 Room Air 08/10/16 19:15 37.0 82 18 144/80 (101) 94 Room Air 08/10/16 15:28 92 Room Air 08/10/16 15:18 36.7 89 16 148/84 (105) 95 Room Air 08/10/16 14:33 82 18 92 Lab Results: Results Past 24 Hours Test 08/10/16 16:33 08/10/16 19:56 08/11/16 05:50 08/11/16 06:55 Range/Units Bedside Glucose 187 133 123 70-90 mg/dl White Blood Count 11.08 4.8-10.8 K/uL Red Blood Count 2.89 4.2-5.4 M/uL Hemoglobin 8.3 12.0-16.0 g/dL Hematocrit 26.4 37-47 % Mean Corpuscular Volume 91.3 80-100 fL Mean Corpuscular Hemoglobin 28.7 25-34 pg Mean Corpuscular Hemoglobin Concent 31.4 32-36 g/dl Platelet Count 228 130-400 K/uL Mean Platelet Volume 10.7 7.4-10.4 fL Neutrophils (%) (Auto) 74.9 % Lymphocytes (%) (Auto) 16.2 % Monocytes (%) (Auto) 7.7 % Eosinophils (%) (Auto) 1.0 % Basophils (%) (Auto) 0.1 % Neutrophils # (Auto) 8.30 1.4-6.5 K/uL Lymphocytes # (Auto) 1.80 1.2-3.4 K/uL Monocytes # (Auto) 0.85 0.11-0.59 K/uL Eosinophils # (Auto) 0.11 0-0.5 K/uL Basophils # (Auto) 0.01 0-0.2 K/uL RDW Standard Deviation 50.9 36.4-46.3 fL RDW Coefficient of Variation 15.1 11.5-14.5 % Immature Granulocyte % (Auto) 0.1 % Immature Granulocyte # (Auto) 0.01 0.00-0.02 K/uL Polychromasia 1+ Sodium Level 140 136-145 mmol/L Potassium Level 3.7 3.5-5.1 mmol/L Chloride Level 107 98-107 mmol/L Carbon Dioxide Level 23 21-32 mmol/L Anion Gap 10.0 3-11 mmol/L Blood Urea Nitrogen 14 7-18 mg/dl Creatinine 0.73 0.60-1.20 mg/dl Est Creatinine Clear Calc Drug Dose 81.2 ml/min Estimated GFR () 103.8 Estimated GFR (Non- 89.5 BUN/Creatinine Ratio 19.0 10-20 Random Glucose 110 70-99 mg/dl Calcium Level 8.7 8.5-10.1 mg/dl
--- NOTE | 2016-08-11 13:07 | DIAGNOSTIC IMAGING REPORT ---
TWO VIEW CHEST CLINICAL HISTORY: Follow-up pneumonia. FINDINGS: PA and lateral chest radiographs are compared to study dated 08/09/2016 and correlated with chest CT dated 08/10/2016. The cardiomediastinal silhouette is unremarkable. There is dense airspace consolidation in the left lower lobe. Patchy airspace consolidation is also seen in the lingula. Minimal airspace opacities are noted in the right lung base. No pleural effusion is seen. There is no pneumothorax. The bony thorax appears intact. IMPRESSION: Dense airspace consolidation at the left lung base has not significant changed from recent prior studies. Electronically signed by: Geovanni Olivo M.D. 08/11/2016 1:06 PM Dictated Date/Time: 08/11/2016 1:05 PM
[2016-08-11] MEDS ORDERED: LEVOFLOXACIN 750 MG TAB PO ONE (13:30)
[2016-08-11] MEDS ORDERED: LCTX PO (17:23)
[2016-08-11] MEDS ORDERED: LVQ750 PO (17:23)
--- NOTE | 2016-08-11 17:26 | Discharge Instructions ---
Discharge Instructions Date of Service Aug 11, 2016. Admission Reason for Admission: Hypotension Discharge Discharge Diagnosis / Problem: Pneumonia,COPD exacerbation,Hypotension-improved Discharge Goals Goal(s): Prevent Disease Progression Activity Recommendations Activity Limitations: resume your previous activity . Instructions / Follow-Up Instructions / Follow-Up Please make an appointment with your PCP in 1 week.Keep appointment with Ortho Current Hospital Diet Patient's current hospital diet: Diabetes Type 2 Diet Discharge Diet Recommended Diet: Diabetes Type 2 Diet Pending Studies Studies pending at discharge: no Laboratory Results Hemoglobin A1c Test 06/13/16 13:51 Range/Units Estimated Average Glucose 140 mg/dl Hemoglobin A1c 6.5 H 4.5-5.6 % Medical Emergencies . Who to Call and When: Medical Emergencies: If at any time you feel your situation is an emergency, please call 911 immediately. . Non-Emergent Contact Non-Emergency issues call your: Primary Care Provider . Past History Medical & Surgical History: (1) Right Knee DJD (2) Hypotension (3) Pneumonia (4) Polypharmacy (5) S/P total knee arthroplasty . "Provider Documentation" section prepared by Thaddeus Sanford. . VTE Core Measure Inpt VTE Proph given/why not?: Other Anticoagulation (Xarelto)
--- NOTE | 2016-08-11 17:39 | Discharge Summary ---
Discharge Summary Date of Service Aug 11, 2016. Discharge Summary Admission Date: Aug 10, 2016 at 00:44 Discharge Date: Aug 11, 2016 Discharge Disposition: Home with services Principal Diagnosis: Pneumonia,COPD exacerbation,Hypotension-improved Secondary Diagnoses/Problems: Please see H&P and Hospital Progress note Consultations: Supply Analyst and Ortho Medication Reconciliation New Medications: Lactobacillus Acidophilus (Lactinex) Tab 2 TAB PO BID, #30 TAB Prednisone (Prednisone) 10 Mg Tab 10 MG PO UD for 10 Days, #20 TAB 3 po daily for 3 days,2 po daily for 3 days and then 1 po daily for 3 days Levofloxacin (Levofloxacin) 750 Mg Tab 750 MG PO DAILY@11 for 7 Days, #7 TAB Continued Medications: Acetaminophen (Tylenol) 500 Mg Tab 1000 MG PO TID, TAB TAKE 3 TIMES DAILY TO LESSON POST OP PAIN Albuterol Hfa (Ventolin Hfa) 200 Puffs/53453 Mcg Aers 2 PUFFS INH Q6H PRN for SOB/Wheezing, #1 INHALER Amlodipine Besylate-Benazepril (Amlodipine Besylate/Benaz) 1 Cap Cap 1 CAP PO QAM, CAP 5/20 MG Celecoxib (CeleBREX) 200 Mg Cap 200 MG PO BID, CAP Cyanocobalamin (Vitamin B-12) 100 Mcg Tab 50 MCG PO QAM, TAB Duloxetine Hcl (Cymbalta) 60 Mg Cap 90 MG PO QAM, CAP Estrogens, Conjugated (Premarin) 0.625 Mg Tab 0.625 MG PO QAM, TAB Eszopiclone (Lunesta) 3 Mg Tab 3 MG PO DAILY, TAB Ferrous Gluconate (Ferrous Gluconate) 324 Mg Tab 324 MG PO BIDM, TAB Hydrochlorothiazide (Hctz) 25 Mg Tab 25 MG PO QAM, TAB Ipratropium-Albuterol (Combivent Respimat) 1 Aer Aer 1 PUFFS INH QID PRN for PRN, INH Melatonin (Melatonin Maximum Strengt) 5 Mg Tab 20 MG PO HS, TAB Metformin Hcl (Glucophage) 1,000 Mg Tab 1000 MG PO BID, TAB Metoprolol Tartrate (Lopressor) (Lopressor) 50 Mg Tab 50 MG PO BID, TAB Oxycodone Ir (Roxicodone Ir) 5 Mg Tab 5-10 MG PO Q6H PRN for Pain, TAB Pregabalin (Lyrica) 200 Mg Cap 200 MG PO TID, CAP Rivaroxaban (Xarelto) 10 Mg Tab 10 MG PO DAILY, TAB Simvastatin (Zocor) 20 Mg Tab 20 MG PO QPM, TAB Tizanidine (Zanaflex) 4 Mg Cap 4 MG PO TID PRN for UNDECIDED, CAP [Vitamin B12] () 50 MCG PO QAM Discontinued Medications: Morphine Cont Rel (Ms Contin) 15 Mg Tab 15 MG PO Q12, TAB TAKE POST OP FOR 10 DAYS Admission Information HPI (per Admitting provider): Recent confinement a few days ago under Orthopedics service for right knee surgery. Significant postop pain patient discharged on round the clock MS Contin course. Some intolerance to aspirin postop, px dcd on Xarelto. As per patient daughter, swelling of the right knee noted on home nurse visit with some drainage. Pain so-so as per px. No fever. Yesterday patient felt hot/cold. Was not feeling well, poor appetite, little sleepy as per family. Patient more short of breath than usual, usual smoker's cough symptoms productive of junky yellow sputum. Admits to some coughing with meals. Denies chest pain. Patient denies abdominal pain, dysuria symptoms. At the emergency room, SBP noted to be 70s. Given 2 L of normal saline, Levaquin and Zosyn for possible sepsis. Levophed initiated for persistent hypotension. Past Medical/Surgical History COPD HTN Hyperlipidemia DM 2 on oral meds anemia ongoing tobacco abuse Arthritis Knee replacement Hernia repair Cholecystectomy Carpal tunnel surgery Family History FH: heart disease Social History Smoking Status: Current Every Day Smoker Alcohol Use: none Marital Status: Occupational Status: retired, disabled Multi-Drug Resistant Organisms History of MDRO: No Allergies Coded Allergies: Latex2 -Systemic Allergic Response (Verified Allergy, Unknown, SWELLING THROAT SWELLS, 08/05/16) Aspirin (Verified Adverse Reaction, Unknown, NAUSEA, 08/05/16) Home Medications Scheduled Acetaminophen (Tylenol), 1,000 MG PO TID Amlodipine Besylate-Benazepril (Amlodipine Besylate/Benaz), 1 CAP PO QAM Celecoxib (CeleBREX), 200 MG PO BID Cyanocobalamin (Vitamin B-12), 50 MCG PO QAM Duloxetine Hcl (Cymbalta), 90 MG PO QAM Estrogens, Conjugated (Premarin), 0.625 MG PO QAM Eszopiclone (Lunesta), 3 MG PO DAILY Ferrous Gluconate (Ferrous Gluconate), 324 MG PO BIDM Hydrochlorothiazide (Hctz), 25 MG PO QAM Melatonin (Melatonin Maximum Strengt), 20 MG PO HS Metformin Hcl (Glucophage), 1,000 MG PO BID Metoprolol Tartrate (Lopressor) (Lopressor), 50 MG PO BID Morphine Cont Rel (Ms Contin), 15 MG PO Q12 Pregabalin (Lyrica), 200 MG PO TID Rivaroxaban (Xarelto), 10 MG PO DAILY Simvastatin (Zocor), 20 MG PO QPM [Vitamin B12], 50 MCG PO QAM Scheduled PRN Albuterol Hfa (Ventolin Hfa), 2 PUFFS INH Q6H PRN for SOB/Wheezing Ipratropium-Albuterol (Combivent Respimat), 1 PUFFS INH QID PRN for PRN Oxycodone Ir (Roxicodone Ir), 5-10 MG PO Q6H PRN for Pain Tizanidine (Zanaflex), 4 MG PO TID PRN for UNDECIDED Review of Systems As per history of present illness, all other ROS negative Physical Exam Vital Signs Date Time Temp Pulse Resp B/P (MAP) Pulse Ox O2 Delivery O2 Flow Rate FiO2 08/10/16 00:00 75 19 82/52 97 Nasal Cannula 2.0 08/09/16 23:31 73 20 71/38 97 Nasal Cannula 2.0 08/09/16 23:12 74 22 74/53 97 Nasal Cannula 2.0 08/09/16 22:21 78 16 73/44 93 Nasal Cannula 4.0 08/09/16 22:20 73 08/09/16 22:17 72 18 69/47 91 Nasal Cannula 4.0 08/09/16 22:10 76 18 46/31 91 Nasal Cannula 4.0 08/09/16 21:40 36.9 79 18 66/46 91 Room Air General Appearance: + obese, + pertinent finding (episode of lethargy) Head: normocephalic Eyes: + pertinent finding (pale palpebral conjunctivae, dry mucosa) Neck: + pertinent finding (short) Respiratory/Chest: + wheezing Cardiovascular: regular rate, rhythm Abdomen/GI: soft Extremities/Musculoskelatal: + pertinent finding (dressing right lower extremity) Neurologic/Psych: + pertinent finding (episodes of lethargy) Skin: + pallor Diagnostics Laboratory Results Results Past 24 Hours Test 08/09/16 21:55 08/09/16 22:01 08/09/16 22:32 08/09/16 22:35 Range/Units White Blood Count 8.44 4.8-10.8 K/uL Red Blood Count 2.99 4.2-5.4 M/uL Hemoglobin 9.1 12.0-16.0 g/dL Hematocrit 27.7 37-47 % Mean Corpuscular Volume 92.6 80-100 fL Mean Corpuscular Hemoglobin 30.4 25-34 pg Mean Corpuscular Hemoglobin Concent 32.9 32-36 g/dl Platelet Count 245 130-400 K/uL Mean Platelet Volume 10.8 7.4-10.4 fL Neutrophils (%) (Auto) 88.0 % Lymphocytes (%) (Auto) 6.4 % Monocytes (%) (Auto) 4.6 % Eosinophils (%) (Auto) 0.8 % Basophils (%) (Auto) 0.1 % Neutrophils # (Auto) 7.42 1.4-6.5 K/uL Lymphocytes # (Auto) 0.54 1.2-3.4 K/uL Monocytes # (Auto) 0.39 0.11-0.59 K/uL Eosinophils # (Auto) 0.07 0-0.5 K/uL Basophils # (Auto) 0.01 0-0.2 K/uL RDW Standard Deviation 50.8 36.4-46.3 fL RDW Coefficient of Variation 15.0 11.5-14.5 % Immature Granulocyte % (Auto) 0.1 % Immature Granulocyte # (Auto) 0.01 0.00-0.02 K/uL Activated Partial Thromboplast Time 25.7 21.0-31.0 SECONDS Partial Thromboplastin Ratio 1.0 Sodium Level 140 136-145 mmol/L Potassium Level 4.1 3.5-5.1 mmol/L Chloride Level 107 98-107 mmol/L Carbon Dioxide Level 23 21-32 mmol/L Anion Gap 10.0 19.0 16-25 mmol/L Blood Urea Nitrogen 25 7-18 mg/dl Creatinine 1.40 0.60-1.20 mg/dl Est Creatinine Clear Calc Drug Dose 40.3 ml/min Estimated GFR () 47.2 Estimated GFR (Non- 40.7 BUN/Creatinine Ratio 17.6 10-20 Random Glucose 216 70-99 mg/dl Calcium Level 8.0 8.5-10.1 mg/dl Magnesium Level 1.8 1.8-2.4 mg/dl Total Bilirubin 0.4 0.2-1 mg/dl Direct Bilirubin 0.1 0-0.2 mg/dl Aspartate Amino Transf (AST/SGOT) 11 15-37 U/L Alanine Aminotransferase (ALT/SGPT) 12 12-78 U/L Alkaline Phosphatase 64 45-117 U/L Total Protein 5.7 6.4-8.2 gm/dl Albumin 2.5 3.4-5.0 gm/dl Thyroid Stimulating Hormone (TSH) 1.110 0.300-4.500 uIu/ml Bedside Hemoglobin 9.2 12.0-16.0 g/dl Bedside Hematocrit 27 37-47 % Bedside Sodium 139 135-144 mEq/L Bedside Potassium 4.1 3.3-5.0 mEq/L Bedside Chloride 103 101-112 mEq/L Bedside Total CO2 22 24-31 mEq/l Bedside Blood Urea Nitrogen 24 7-18 mg/dl Bedside Creatinine 1.2 0.6-1.3 mg/dl Bedside Glucose (other) 225 70-99 mg/dl Bedside Ionized Calcium (Nata) 1.10 1.12-1.32 mmol/l Bedside Troponin I 0.060 0-0.045 ng/ml Urine Color DK YELLOW Urine Appearance CLEAR CLEAR Urine pH 5.0 4.5-7.5 Urine Specific [place] 1.024 1.000-1.030 Urine Protein NEG NEG Urine Glucose (UA) NEG NEG Urine Ketones TRACE NEG Urine Occult Blood NEG NEG Urine Nitrite NEG NEG Urine Bilirubin NEG NEG Urine Urobilinogen NEG NEG Urine Leukocyte Esterase NEG NEG Test 08/09/16 23:46 08/10/16 00:01 08/10/16 00:05 Range/Units Bedside Lactic Acid Venous 2.00 0.90-1.70 mmol/L Microbiology Results 08/09/16 Blood Culture, Received Pending 08/09/16 Blood Culture, Received Pending Diagnostic Radiology CT chest initial read : Multi-focal pneumonia, no PE CT right leg initially read : Soft tissue swelling around the knee, no obvious hematoma Joint effusion and foci of gas are present. EKG As per my read : Rate 70 normal sinus rhythm and some T-wave flattening inferiorly leads Impression Assessment and Plan AP Hypotension Secondary to hypovolemia Possible sepsis (SIRS criteria not met for now) (possible sources : HCAP/ possible aspiration pneumonia as per patient; right knee, recent surgery) ro cardiac pathology suboptimal BP despite 2L NSS and Zosyn administered at the ER Acute hypoxemic respiratory failure secondary to COPD exacerbation secondary to pneumonia ARF 2 to illness postop anemia DM2 on oral meds, reasonable control as of recent A1c Ongoing tobacco abuse ICU to facilitate pressor therapy CS, add Vancomycin to Zosyn NSS, follow-up lactic acid level hold home anti-HTN meds for now TTE hypotension, troponinemia Supplemental O2 baseline ABG Steroids, nebs for COPD exacerbation Aspiration precautions, swallow eval Nicotine patch Monitor creatinine response IV fluids Orthopedics consult. Postop eval Basal insulin, ISS BG goal 140-180 Hold recent rx of aozqi-tiv-kftqo narcotics for now until patient more awake DVT prophylaxis. Xarelto Full code Total critical care time was 50 minutes VTE Prophylaxis VTE Risk Assessment Done? Y/N: Yes Risk Level: Moderate <Electronically signed by Samuel Whittington M.D.> Signed: 08/10/16 0931 Physical Exam (per Admitting): General Appearance: + obese, + pertinent finding (episode of lethargy) Head: normocephalic Eyes: + pertinent finding (pale palpebral conjunctivae, dry mucosa) Neck: + pertinent finding (short) Respiratory/Chest: + wheezing Cardiovascular: regular rate, rhythm Abdomen/GI: soft Extremities/Musculoskelatal: + pertinent finding (dressing right lower extremity) Neurologic/Psych: + pertinent finding (episodes of lethargy) Skin: + pallor Hospital Course Acute hypoxemic respiratory failure secondary to COPD exacerbation secondary to pneumonia Presented with Chills,Fever-not documented,SOB and weakness CT-multilobar pneumonia Started on Vanco and Zosyn-continued until 08/11/16 Steroids, nebs for COPD exacerbation Aspiration precautions, Await Blood and Urine cultures-negative MRSA screen -negative Clinically a lot better Recheck CXR-if not worse will discharge on Oral Levaquin Hypotension Multifactorial-possible sepsis from pneumonia without typical findings, Bacteremia ,recent right Knee surgery,Secondary to hypovolemia and or narcotic induced Possible sepsis (SIRS criteria not met for now) (possible sources : HCAP/ possible aspiration pneumonia as per patient; right knee, recent surgery) R/O and cardiac pathology-doubt Required Fluid resuscitation and followed by Levophed Off Levophed now BP is elevated Medications restarted S/P Right TKR Hold recent rx of drdfm-coz-msvbe narcotics for now until patient more awake Ortho evaluation-pending MADISON Likely secondary to Dehydration IVF and monitor Kidney function DM2 on oral meds, reasonable control as of recent A1c Basal insulin, ISS BG goal 140-180 Ongoing tobacco abuse Nicotine patch Nicotine patch Monitor creatinine response IV fluids DVT prophylaxis. Xarelto Full code Wants to go home Voiced that it may be too early Check CXR-in not any worse will discharge Total time spent on discharge = 35 minutes This includes examination of the patient, discharge planning, medication reconciliation, and communication with other providers. Discharge Instructions Date of Service Aug 11, 2016. Admission Reason for Admission: Hypotension Discharge Discharge Diagnosis / Problem: Pneumonia,COPD exacerbation,Hypotension-improved Discharge Goals Goal(s): Prevent Disease Progression Activity Recommendations Activity Limitations: resume your previous activity . Instructions / Follow-Up Instructions / Follow-Up Please make an appointment with your PCP in 1 week.Keep appointment with Ortho Current Hospital Diet Patient's current hospital diet: Diabetes Type 2 Diet Discharge Diet Recommended Diet: Diabetes Type 2 Diet Pending Studies Studies pending at discharge: no Laboratory Results Hemoglobin A1c Test 06/13/16 13:51 Range/Units Estimated Average Glucose 140 mg/dl Hemoglobin A1c 6.5 H 4.5-5.6 % Medical Emergencies . Who to Call and When: Medical Emergencies: If at any time you feel your situation is an emergency, please call 911 immediately. . Non-Emergent Contact Non-Emergency issues call your: Primary Care Provider . Past History Medical & Surgical History: (1) Right Knee DJD (2) Hypotension (3) Pneumonia (4) Polypharmacy (5) S/P total knee arthroplasty . "Provider Documentation" section prepared by Thaddeus Sanford. . VTE Core Measure Inpt VTE Proph given/why not?: Other Anticoagulation (Xarelto) <Electronically signed by Thaddeus Sanford M.D.> Signed: 08/11/16 1170 Additional Copies To Tony Carter D.O.
[2016-08-11] MEDS ORDERED: PRED10TA PO (17:40)
[2016-08-11] MEDS ORDERED: MELATONIN 20 MG PO SCH (21:00)
[2016-08-11] MEDS ORDERED: METOPROLOL TARTRATE 50 MG TAB PO SCH (21:00)
[2016-08-11] MEDS ORDERED: CeleBREX 200 MG CAP PO SCH (21:00)
[2016-08-11] MEDS ORDERED: ESZOPICLONE 3 MG TAB PO SCH (21:00)
[2016-08-12] MEDS ORDERED: VANCOMYCIN TROUGH ONE (05:30)
[2016-08-12] MEDS ORDERED: AMLODIPINE BESYLATE 5 MG TAB PO SCH (09:00)
[2016-08-12] MEDS ORDERED: VITAMIN B12 50 MCG PO SCH (09:00)
[2016-08-12] MEDS ORDERED: ENALAPRIL MALEATE 10 MG TAB PO SCH (09:00)
[2016-08-12] MEDS ORDERED: HYDROCHLOROTHIAZIDE 25 MG TAB PO SCH (09:00)
[2016-08-12] MEDS ORDERED: ESTROGENS, CONJUGATED 0.625 MG TAB PO SCH (09:00)
[2016-08-12] MEDS ORDERED: CYANOCOBALAMIN 100 MCG TAB (VIT B-12) PO SCH (09:00)
[2016-08-12] MEDS ORDERED: LEVOFLOXACIN 750 MG TAB PO SCH (11:00)
[2016-08-14 07:41] LABS: COD UR NEGATIVE NG/ML (CUTOFF=50); HYDROCOD UR NEGATIVE NG/ML (CUTOFF=50); HYDROMOR UR 60 NG/ML (CUTOFF=50); MORPHINE UR 9140 NG/ML (CUTOFF=50); NORHYDROCODONE CONF UR NEGATIVE NG/ML (CUTOFF=50); OXYMORPH UR 2390 NG/ML (CUTOFF=50)
== END 2016-08-11 19:07 | disposition home health service (06) | DRG 190 ==
LOC: C.EDB 21:40 → C.MSICU 08-10 00:44 → ENRESERV 08-10 00:49 → C.MSICU 08-10 07:04 → ENRESERV 08-10 09:54 → C.2T 08-10 11:20
PROVIDERS: ADMIT Internal Medicine; ATTEND Internal Medicine
DX: J44.1 Chronic obstructive pulmonary disease with (acute) exacerbation (principal); J44.0 Chronic obstructive pulmonary disease with (acute) lower respiratory infection; J18.9 Pneumonia, unspecified organism; J96.00 Acute respiratory failure, unspecified whether with hypoxia or hypercapnia; N17.9 Acute kidney failure, unspecified; G93.40 Encephalopathy, unspecified; E86.1 Hypovolemia; Z98.890 Other specified postprocedural states; F17.200 Nicotine dependence, unspecified, uncomplicated; Z91.040 Latex allergy status; Z96.651 Presence of right artificial knee joint; E78.5 Hyperlipidemia, unspecified; E11.65 Type 2 diabetes mellitus with hyperglycemia; D64.9 Anemia, unspecified; I95.9 Hypotension, unspecified; I10 Essential (primary) hypertension

== ENCOUNTER 2019-01-20 06:04 | Inpatient (IN) ==
--- NOTE | 2018-12-15 16:44 | PAT Medication Instructions ---
Medication Instructions Date of Service December 15, 2018 Home Medications amlodipine 10 mg PO QAM benazepril 20 mg PO BID dulaglutide [Trulicity] 0.75 mg SUBCUT WK fluticasone furoate-vilanterol [Breo Ellipta] 1 inh INHALATION QPM hydrochlorothiazide 25 mg PO QPM insulin glargine [Lantus U-100 Insulin] 65 unit SUBCUT QPM metoprolol tartrate 50 mg PO BID pregabalin 200 mg PO TID tiotropium bromide [Spiriva with HandiHaler] 1 cap INHALATION QPM zolpidem [Ambien] 10 mg PO HS Continue as directed dulaglutide [Trulicity] 0.75 mg SUBCUT WK DO NOT take the morning of surgery benazepril 20 mg PO BID Take morning of surgery With a small sip of water, OTHERWISE NOTHING TO EAT OR DRINK AFTER MIDNIGHT: amlodipine 10 mg PO QAM metoprolol tartrate 50 mg PO BID pregabalin 200 mg PO TID Take evening before surgery benazepril 20 mg PO BID fluticasone furoate-vilanterol [Breo Ellipta] 1 inh INHALATION QPM hydrochlorothiazide 25 mg PO QPM insulin glargine [Lantus U-100 Insulin] 65 unit SUBCUT QPM metoprolol tartrate 50 mg PO BID pregabalin 200 mg PO TID tiotropium bromide [Spiriva with HandiHaler] 1 cap INHALATION QPM zolpidem [Ambien] 10 mg PO HS Other Notes If you have any questions please call us at [phone] or [phone] or [phone] or [phone]
--- NOTE | 2019-01-05 10:44 | PAT Medication Instructions ---
Medication Instructions Date of Service January 05, 2019 Home Medications amlodipine 10 mg PO QAM benazepril 20 mg PO BID dulaglutide [Trulicity] 0.75 mg SUBCUT WK fluticasone furoate-vilanterol [Breo Ellipta] 1 inh INHALATION QPM hydrochlorothiazide 25 mg PO QPM insulin glargine [Lantus U-100 Insulin] 65 unit SUBCUT QPM metoprolol tartrate 50 mg PO BID pregabalin 200 mg PO TID tiotropium bromide [Spiriva with HandiHaler] 1 cap INHALATION QPM zolpidem [Ambien] 10 mg PO HS Continue as directed dulaglutide [Trulicity] 0.75 mg SUBCUT WK DO NOT take the morning of surgery benazepril 20 mg PO BID Take morning of surgery With a small sip of water, OTHERWISE NOTHING TO EAT OR DRINK AFTER MIDNIGHT: amlodipine 10 mg PO QAM metoprolol tartrate 50 mg PO BID pregabalin 200 mg PO TID Take evening before surgery benazepril 20 mg PO BID fluticasone furoate-vilanterol [Breo Ellipta] 1 inh INHALATION QPM hydrochlorothiazide 25 mg PO QPM insulin glargine [Lantus U-100 Insulin] 65 unit SUBCUT QPM metoprolol tartrate 50 mg PO BID pregabalin 200 mg PO TID tiotropium bromide [Spiriva with HandiHaler] 1 cap INHALATION QPM zolpidem [Ambien] 10 mg PO HS Other Notes If you have any questions please call us at [phone] or [phone] or [phone] or [phone]
--- NOTE | 2019-01-10 10:37 | Anesthesiology Consultation ---
Date of Service January 10, 2019 Assessment & Plan (1) Encounter for pre-operative examination: - Awaiting PCP optimization response. - Check BSG AM DOS Chart Review Chart Review: Patient seen in Pre Admission Testing Teaching & Discussion Pre-Anesthesia Teaching/Discussion Notes: Instructed NPO after midnight before surgery,except medications with 15 cc of water. Medication instructions provided according to the PAT guidelines. History Surgery Operation Date: 01/20/19 10:00 Proposed Procedures p L3-L4, L4-L5 Posterior Lumbar Interbody Fusion - Murali Dobbs DO Height/Weight Height: 5 ft 2 in Weight: 88.6 kg Allergies Allergy/AdvReac Type Severity Reaction Status Date / Time bee pollen Allergy Severe diffuse Verified 01/10/19 10:45 swelling aspirin AdvReac Mild nausea Verified 01/10/19 10:45 Latex2 -Systemic Allergic Allergy Severe throat Uncoded 01/10/19 10:45 Response swelling Medications Home Medications Medication Instructions Recorded Confirmed Last Taken amlodipine 10 mg PO QAM 12/15/18 12/15/18 Unknown benazepril 20 mg PO BID 12/15/18 12/15/18 Unknown dulaglutide [Trulicity] 0.75 mg SUBCUT WK 12/15/18 12/15/18 Unknown fluticasone furoate-vilanterol 1 inh INHALATION QPM 12/15/18 12/15/18 Unknown [Breo Ellipta] hydrochlorothiazide 25 mg PO QPM 12/15/18 12/15/18 Unknown insulin glargine [Lantus U-100 65 unit SUBCUT QPM 12/15/18 12/15/18 Unknown Insulin] metoprolol tartrate 50 mg PO BID 12/15/18 12/15/18 Unknown pregabalin 200 mg PO TID 12/15/18 12/15/18 Unknown tiotropium bromide [Spiriva with 1 cap INHALATION QPM 12/15/18 12/15/18 Unknown HandiHaler] zolpidem [Ambien] 10 mg PO HS 12/15/18 12/15/18 Unknown Past Medical History Medical History Chronic obstructive pulmonary disease stable Degenerative disc disease Diabetes mellitus, type 2 IDDM Fibromyalgia Glaucoma Hx of renal failure 2018/medication related/"resolved" Hyperlipidemia Hypertension Insomnia Obesity On home oxygen therapy 4L O2 NC with dyspnea PRN (rare use/no recent use) Osteoarthritis Peripheral neuropathy Spinal stenosis Exercise / Class Metabolic Activity III < 4 Walking/Shop/Light housework Past Family History Family History Mother Family history of diabetes mellitus Sister Family history of diabetes mellitus Brother Family history of diabetes mellitus Past Surgical History Surgical History H/O total hysterectomy History of section X 3 History of cholecystectomy History of dilatation and curettage History of herniorrhaphy ABDOMINAL HERNIAS REPAIRED X 3 History of laparoscopy History of tooth extraction History of total knee replacement RT/LEFT; Right TKA: 08/05/16: SAB x 1 at L3-L4 + PNB at [facility] Past Anesthesia History No Hx of Anesthesia Complications and No Family Hx of Anesthesia Complications History of PONV No Hx of PONV and No Hx of Motion Sickness Social History Smoking Status: Current every day smoker tobacco type: cigarettes Smoking cigarettes per day: 6 CIGARETTES DAILY (TOTAL USE X 50 YEARS) Do You Dip or Chew Tobacco: No Hx Alcohol Use: No Hx Substance Use: No substance use type: does not use Review of Systems Patient denies chest pain, shortness of breath, reflux, cough, wheezing, palpitations. Physical Exam Vital Signs VITALS BP 115/80 P 71 TEMP 98.2 SP02 93-94% RA RESP 18 PHYSICAL Full neck and c-spine range of motion. Full TMJ range of motion. TMD 2.5 finger breaths Mallampati Score 3 Dentition: upper partial dentures Lungs: faint expiratory wheezes in upper lungs Cardiac: regular rate and rhythm, distant heart sounds Spine: kyphosis Carotid arteries: negative bruit Extremities: no edema Testing Laboratory Results 01/10/19 10:58 01/10/19 10:58 PT 9.8 Seconds (9.0-12.0) 01/10/19 10:58 INR 1.0 (0.9-1.1) 01/10/19 10:58 APTT 23.6 Seconds (21.0-31.0) 01/10/19 10:58 Hemoglobin A1c 8.1 % (4.5-5.6) H 01/10/19 10:58 Blood Type O Negative 01/10/19 10:58 Antibody Screen NEGATIVE 12/02/19 10:58 *Surgeon office made aware of elevated HGBA1C* Electrocardiogram Date: 01/10/19 Findings: + NSR @ (70) Chest X-Ray Date: 01/10/19 There is mild bibasilar scarring/atelectasis. No airspace consolidation or pleural effusion is identified. There is no pneumothorax. The skeletal structures are osteopenic. The bony thorax appears intact. No active disease in the chest.
--- NOTE | 2019-01-10 11:37 | XRay Report ---
TWO VIEW CHEST CLINICAL HISTORY: Preoperative examination. FINDINGS: PA and lateral chest radiographs are compared to study dated 08/09/2016 and correlated with c hest CT dated 08/10/2016. The cardiomediastinal silhouette is unremarkable. There is mild bibasilar sca rring/atelectasis. No airspace consolidation or pleural effusion is identified. There is no pneumotho rax. The skeletal structures are osteopenic. The bony thorax appears intact. IMPRESSION: No active disease in the chest. Electronically signed by: Geovanni Olivo M.D. 01/10/2019 11:36 AM
[2019-01-10 13:06] LABS: Basophils # (auto) 0.02 K/uL (0-0.2); Basophils % (auto) 0.3 %; Eosinophils # (auto) 0.17 K/uL (0-0.5); Eosinophils % (auto) 2.1 %; Hematocrit (blood only) 44.5 % (37-47); Hemoglobin 14.8 g/dL (12.0-16.0); Immature Granulocytes # (auto) 0.02 K/uL (0.00-0.02); Immature Granulocytes % (auto) 0.3 %; Lymphocytes # (auto) 2.82 K/uL (1.2-3.4); Lymphocytes % (auto) 35.4 %; Mean Corpuscular Hgb Conc 33.3 g/dL (32-36); Mean Corpuscular Volume 93.3 fL (80-100); Mean Platelet Volume 11.5 fL (7.4-10.4); Monocytes # (auto) 0.53 K/uL (0.11-0.59); Monocytes % (auto) 6.7 %; Neutrophils % (auto) 55.2 %; Platelet Count 264 K/uL (130-400); RDW Coefficient of Variation 15.2 % (11.5-14.5); RDW Standard Deviation 52.2 fL (36.4-46.3); Red Blood Count 4.77 M/uL (4.2-5.4); White Blood Count 7.96 K/uL (4.8-10.8)
[2019-01-10 13:16] LABS: Partial Thromboplastin Ratio 0.9; Partial Thromboplastin Time 23.6 Seconds (21.0-31.0); Prothrombin Time 9.8 Seconds (9.0-12.0)
[2019-01-10 13:29] LABS: Estimated Average Glucose 186 mg/dl; Hemoglobin A1C 8.1 % (4.5-5.6)
[2019-01-10 14:06] LABS: BUN Creatinine Ratio 29.2 (10-20); Calcium 9.7 mg/dl (8.5-10.1); Creatinine Clr Calc Pharmacy 69.3 ml/min; Est GFR (African American) 82.8; Est GFR (Non-African American) 71.4; Potassium 4.7 mmol/L (3.5-5.1)
--- NOTE | 2019-01-19 11:20 | History and Physical Report ---
DATE OF ADMISSION: 01/20/2019 CHIEF COMPLAINT: Back pain, leg pain, inability to stand and ambulate. Ongoing now for months in duration, failing conservative care. PAST MEDICAL HISTORY: Diabetes, hypertension, high cholesterol, COPD. PAST SURGICAL HISTORY: Left knee surgery, 2 hernias, hysterectomy. ALLERGIES: Negative. FAMILY HISTORY: Diabetes. SOCIAL HISTORY: No alcohol. Three children. Mild smoker. Active. TWELVE-SYSTEM REVIEW: Negative fevers, sweats, chills. Ear, nose and throat negative. Denies asthma, wheezing, shortness of breath. Denies nausea, vomiting. Denies memory loss. She has neurological difficulty with muscle pain and diabetes. OBJECTIVE: VITAL SIGNS: She is 5 feet 2 inches, 160 pounds. Blood pressure 130/80, pulse 80. HEENT: Pupils react to light and accommodation. Ears, nose and throat clear. CARDIAC: Normal S1, S2, no S3. LUNGS: Clear to auscultation. ABDOMEN: Soft, nontender. MUSCULOSKELETAL: She has pain with flexion and extension of the spine. She has severe kyphosis of the spine. She has nerve roots slightly diminished in the plantar and dorsiflexion. She cannot stand upright. PLAN: Includes a PLIF procedure, L3-L5 lumbar spine.
[~2019-01-20 06:04] MED LIST changes: -ACET-24 PO; -AMLO5CAP3 PO; +CEFAZOLIN 2000MG 2,000 MG/15 ML SYR IV SCH; -CLB/200 PO; -DULO60CA44 PO; -ESZO1TAB16 PO; -FRRG PO; -HYDR25TA4 PO; -IPRA1AER2 INH; +LR 15ML/HR IV SCH; -MELATAB2 PO; -METF-384 PO; -METO50TA16 PO; -MORP-157 PO; -PREG200C PO; -PRM625 PO; -RXC5 PO; -SIMV20TA2 PO; +SODIUM CHLORIDE 0.9% 1,000 ML IV SCH; -TIZA4CAP PO; -VITAMIN B12 PO; -VNTHFA/IN INH; -XRL10 PO
[2019-01-20] MEDS ORDERED: ATROPINE SULFATE 0.1 MG/ML 10ML SYR IV PRN (06:43)
[2019-01-20] MEDS ORDERED: ePHEDrine sulfate 50 MG/ML AMP IV PRN (06:43)
[2019-01-20] MEDS ORDERED: HYDROmorphone INJ 1 MG/ML SYRINGE IV PRN (06:43)
[2019-01-20] MEDS ORDERED: ONDANSETRON INJ 2 MG/ML 2 ML VIAL IV PRN ×2 (06:43→12:36)
[2019-01-20] MEDS ORDERED: VANCOMYCIN HCL 1000MG/20ML VIAL ONE (07:02)
[2019-01-20] MEDS ORDERED: THROMBIN FOR SOLN 20000 UNIT KIT ONE ×2 (07:03→09:01)
[2019-01-20] MEDS ORDERED: GELATIN SPONGE SZ 100 ONE ×2 (07:03→09:01)
[2019-01-20] MEDS ORDERED: BACITRACIN INJ 50,000 UNIT VIAL ONE (07:03)
[2019-01-20] MEDS ORDERED: EPINEPHrine INJ 1 MG/ML AMP ONE (07:04)
[2019-01-20] MEDS ORDERED: BUPIVACAINE 0.5 % 5 MG/1 ML MPF 30ML VIAL ONE (07:04)
[2019-01-20] MEDS ORDERED: ONDANSETRON INJ 2 MG/ML 2 ML VIAL ONE ×2 (07:10→08:19)
[2019-01-20] MEDS ORDERED: fentaNYL citrate 100 MCG/2 ML VIAL ONE (07:10)
[2019-01-20] MEDS ORDERED: PROPOFOL IV EMULSION 10 MG/ML 20 ML VIAL IV ONE (07:10)
[2019-01-20] MEDS ORDERED: LARYING-O-JET KIT (LTA) ONE (07:10)
[2019-01-20] MEDS ORDERED: MIDAZOLAM HCL 1 MG/ML 2ML VIAL ONE (07:10)
[2019-01-20] MEDS ORDERED: DEXAMETHASONE SOD INJ 4 MG/ML VIAL ONE (07:10)
[2019-01-20] MEDS ORDERED: GLYCOPYRROLATE 0.2 MG/ML VIAL ONE (07:10)
[2019-01-20] MEDS ORDERED: LIDOCAINE HCL 2% 2 ML VIAL/AMP(20MG/ML) INFIL ONE (07:10)
[2019-01-20] MEDS ORDERED: HYDROmorphone INJ 2 MG/ML SYR/VIAL ONE (07:10)
[2019-01-20] MEDS ORDERED: SODIUM CHLORIDE 0.9% INJ 10 ML VIAL ONE (07:10)
[2019-01-20] MEDS ORDERED: NEOSTIGMINE METHYLSULFATE 5 MG/5 ML SYR ONE (07:10)
--- NOTE | 2019-01-20 07:23 | History & Physical Bridge Note ---
Date of Service January 20, 2019 History & Physical Bridge Note I have examined the patient, reviewed the History & Physical and in the interval since the performance of the History & Physical I have noted the following changes of clinical significance: no changes noted
[2019-01-20] MEDS ORDERED: BUPIVACAINE/EPINEPHRINE 0.5% MPF 1:200,000 10 ML VIAL ONE (07:32)
[2019-01-20] MEDS ORDERED: ePHEDrine sulfate 50 MG/ML SYR ONE (08:10)
[2019-01-20] MEDS ORDERED: FLOSEAL HEMOSTATIC MATRIX 10ML TOP ONE (08:31)
[2019-01-20] MEDS ORDERED: ALBUMIN HUMAN 5% 12.5 GM/250 ML VIAL IV ONE (09:00)
[2019-01-20] MEDS ORDERED: ALBUTEROL HFA INHALER 8.5 GM ONE (09:25)
[2019-01-20] MEDS ORDERED: PHENYLEPHRINE HCL 10 MG/ML VIAL ONE (09:25)
--- NOTE | 2019-01-20 11:02 | Post Operative Brief Note ---
PG Immediate Post Op with CF Date of Surgery January 20, 2019 Pre & Post Diagnosis Operation Date: 01/20/19 07:30 Pre-Op Diagnosis: Spinal Stenosis, Spondylolisthesis Post-Op Diagnosis: Spinal Stenosis, Spondylolisthesis I identified the patient and participated in the time-out.: Yes Procedure Operation Date: 01/20/19 07:30 Actual Procedures p L3-L4, L4-L5 Posterior Lumbar Decompression and Fusion, L3-4, L4-5 Interbody Fusion - Murali Dobbs DO Surgeon Murali Dobbs DO Analog Design Engineer nieves Estimated Blood Loss 400 Findings Consistent with Post-Op Diagnosis Specimens Specimen Description: None, as per surgeon Drains Richards Catheter (16fr silicone richards placed without difficulty, richards demonstrates clear yellow urine. Output measured and recorded by anesthesia.) and Hemovac Drain (10fr single) Disposition Accompanied Patient To Recovery: Yes Overlapping Procedure I was immediately available: during the entire case.
--- NOTE | 2019-01-20 11:12 | Operative Report ---
PG Post Operative Report Pre & Post Diagnosis Operation Date: 01/20/19 07:30 Pre-Op Diagnosis: Spinal Stenosis, Spondylolisthesis Post-Op Diagnosis: Spinal Stenosis, Spondylolisthesis I identified the patient and participated in the time-out.: Yes Procedure Operation Date: 01/20/19 07:30 Actual Procedures p L3-L4, L4-L5 Posterior Lumbar Decompression and Fusion, L3-4, L4-5 Interbody Fusion - Murali Dobbs DO Surgeon Murali Dobbs DO Taximeter Repairer nieves Estimated Blood Loss 400 Findings Consistent with Post-Op Diagnosis Severe spinal stenosis. Severe facet joint arthropathy with again spondylolist hesis Specimens No specimens Drains Hemovac Complications 0 complications Disposition Accompanied Patient To Recovery: Yes Indications Patient had inability to stand and walk and could not come to an upright position Description of Procedure Patient was taken to the operating room a general intubated anesthetic provided to the patient Meier catheter administered. Antibiotics administered. Placed prone on the Enrique table. He was scrubbed first with Betadine prep with ChloraPrep draped sterile timeout taken We we performed a skin incision from L3 to the sacrum dissecting the soft tissue in the same plane down to the facet joints putting a deep self-retaining retractor. We cauterized all bleeders we used various techniques to keep the field dry and clean. We then worked on the neural elements decompressing the lamina 5 4 and 3 providing foraminotomies partial facetectomies. The facet joints worse significantly large we need to bur down these facet joints various techniques with any hope of finding the entry points for the pedicles. Then safely instrumented the spine Gettings pedicle screws at 5 4 and 3 bilaterally. Of pleased with the anatomic placement we used anatomic markers plus C arm guidance. Then perform the interbody portion of procedure at L4-5 and L3-4 retracting the dura over on the right-hand side putting interbody devices at L3-4 and L4 5 pack with autogenous bone graft along with demineralized bone matrix. This technique reduce the spondylolisthesis. We then put in the longitudinal man and locked this down as well we irrigated with approximately 500 cc of fluid bone grafted out of the transverse processes. Bone graft used was a combination of morselized autograft along with the demineralized bone matrix we also closed over Hemovac drain and vancomycin powder with 1 Vicryl suture 2-0 Vicryl suture staple gun and the skin. Sterile dressings applied The patient returned to supine position extubated to PACU stable without complications. Estimated blood loss 400 cc Complications 0 Needle sponge and needle count accurate at the close of procedure Bone graft used: Morselized autograft and demineralized bone matrix I attest to the content of the Intraoperative Record and any orders documented therein. Any exceptions are noted below.
[2019-01-20] MEDS: fentaNYL citrate 100 MCG/2 ML VIAL IV PRN ×2 (11:33→11:38)
--- NOTE | 2019-01-20 11:50 | Fluoroscopy Report ---
FL spine 1V any level HISTORY: Laminectomy. Fusion.. FLUOROSCOPY TIME: . FINDINGS: Intraoperative fluoroscopy was provided for the lumbar spine. 1 fluoroscopic spot images we re obtained. IMPRESSION: Fluoroscopy provided for a lumbar laminectomy and fusion. The above report was generated using voice recognition software. It may contain grammatical, syntax or spelling errors. Electronically signed by: Duke Oliveira M.D. 01/20/2019 11:49 AM
--- NOTE | 2019-01-20 12:06 | Anesthesiology Progress Note ---
Date of Service January 20, 2019 Anesthesia Post Procedure Vital Signs Vital Signs: Temp Pulse Pulse Resp BP Pulse Ox 01/20/19 12:03 98.4 F 96 H 21 130/89 95 01/20/19 11:53 94 H 14 116/84 94 01/20/19 11:45 94 H 10 L 118/90 95 01/20/19 11:35 94 H 24 132/80 96 01/20/19 11:25 90 17 125/86 96 01/20/19 11:15 91 H 13 140/88 96 01/20/19 11:08 99.3 F 94 H 14 140/89 98 01/20/19 06:24 98.1 F 81 20 136/87 93 Pain Intensity Back: Pain Intensity: 7 Transfer of Care Handoff Completed per policy Notes Mental Status: alert / awake / arousable and participated in evaluation Patient Amnestic to Procedure: Yes Nausea / Vomiting: adequately controlled Pain: adequately controlled Airway Patency, RR, SpO2: stable & adequate BP & HR: stable & adequate Hydration State: stable & adequate Anesthetic Complications: no major complications apparent and Pt Satisfied with anesthetic care
[2019-01-20] MEDS ORDERED: ONDANSETRON 4 MG OD TAB PO PRN (12:36)
[2019-01-20] MEDS ORDERED: ALUMINUM/MAGNESIUM SUSP 30 ML UDC PO PRN (12:36)
[2019-01-20] MEDS ORDERED: SOD PHOSPHATE/SOD BIPHOSPHATE ENEMA 132 ML BTL PR PRN (12:36)
[2019-01-20] MEDS ORDERED: MAGNESIUM HYDROXIDE SUSP 30 ML UDC PO PRN (12:36)
[2019-01-20] MEDS ORDERED: PROMETHAZINE HCL 12.5 MG in SODIUM CHLORIDE 0.9% 50 ML IV PRN (12:36)
[2019-01-20] MEDS ORDERED: FAMOTIDINE 20 MG TAB PO PRN (12:36)
[2019-01-20] MEDS ORDERED: DO NOT ADMINISTER FLU VACCINE PRN (12:36)
[2019-01-20] MEDS ORDERED: bisacodyL 10 MG SUPP PR PRN (12:36)
[2019-01-20] MEDS ORDERED: NALOXONE HCL 0.4 MG/1 ML VIAL/CARP IV PRN (12:36)
[2019-01-20] MEDS ORDERED: HYDROmorphone INJ 0.5 MG/0.5 ML SYR IV PRN (12:36)
[2019-01-20] MEDS ORDERED: DO NOT ADMINISTER PNEUMOCOCCAL VACCINE PRN (12:36)
[2019-01-20] MEDS ORDERED: OXYCODONE HCL IR 5 MG TAB (IMMEDIATE RELEASE) ONE (12:50)
[2019-01-20] MEDS ORDERED: PHARMACY GLYCEMIC MGMT CONSULT PRN (13:18)
[2019-01-20] MEDS: PREGABALIN 100 MG CAP PO SCH ×2 (13:40→20:14)
[2019-01-20] MEDS: KETOROLAC 30 MG/ML VIAL IV SCH ×2 (13:41→19:22)
[2019-01-20] MEDS ORDERED: GLUCOSE 40% GEL 15 GM TUBE PO PRN (13:45)
[2019-01-20] MEDS ORDERED: DEXTROSE 50% 50 ML SYRINGE IV PRN (13:45)
[2019-01-20] MEDS ORDERED: CARBOHYDRATES FOR HYPOGLYCEMIA PO PRN (13:45)
[2019-01-20] MEDS ORDERED: GLUCAGON FOR INJ 1 MG VIAL SQ PRN (13:45)
[2019-01-20] MEDS ORDERED: GLUCOSE 10 TABS/TUBE PO PRN (13:45)
--- NOTE | 2019-01-20 14:34 | Pharmacy Report ---
Glycemic Control Consultation - Date of Service January 20, 2019 - Scope Scope: Glycemic Pharmacist consulted by Mauro on 01/20/19 for glycemic control and to write orders per [facility] inpatient glycemic control protocol - Objective Weight: 90.129 kg Accuchecks BSG (last 24hrs): 01/20/19 01/20/19 01/20/19 06:22 08:39 09:37 POC Glucose 285 H 175 H 165 H 01/20/19 11:12 POC Glucose 154 H HbA1c: Hemoglobin A1c 8.1 % (4.5-5.6) H 01/10/19 10:58 - Recent Pertinent Medications Outpatient Anti-diabetic Regimen: * Lantus 65 units SQ qPM * Trulicity 0.75 mg SQ once weekly on Saturdays * A1c = 8.1 % 01/10/19 Risk Factors for Insulin Resistance: * Recent Surgery: POD # 0 lumbar surgery * Diet: T2DM - Assessment & Plan Assessment & Plan: ASSESSMENT: * Marie is a 63 year old T2DM female s/p lumbar decompression and fusion * OR records indicate that patient did not receive satya-operative steroids * BSG of 285 mg/dL this AM. I spoke with patient regarding this value. This is unusual for her. Typical fasting BSG of 140-150 mg/dL. Patient attributes elevation to eating peanut butter pie last evening. * Will continue Lantus qPM dosing since this is how she administers her insulin at home. * Will utilize weight based dosing for Novolog (stress level of 2) PLAN FOR INPATIENT GLYCEMIC CONTROL: * Basal insulin * Lantus 50-65 units SQ qPM 50 units for BSG < 150 mg/dL 65 units for BSG 150 mg/dL or more (home dose) * Bolus insulin * NovoLog per scale ACHS or Q6hrs while NPO * Goal Range: Low 110 mg/dL - High 140 mg/dL * Correction Factor: 25 mg/dL/unit * Nutritional / Prandial insulin per carb ratio of 1 unit per 9 grams CHO consumed * Add overnight check with coverage at 0200 * Please note that the plan above was derived based on current level of insulin resistance and hospital stress. These recommendations are appropriate for inpatient admission only. Plan of care upon discharge will need to be reassessed to avoid potential outpatient hypo/hyperglycemia. Thank you.
[2019-01-20] MEDS: INSULIN ASPART 100 UNITS/ML 3 ML PEN SC SCH ×3 (14:56→21:33)
[2019-01-20] MEDS: SODIUM CHLORIDE 0.9% 1000ML 1,000 ML IV SCH (15:21)
[2019-01-20] MEDS: CEFAZOLIN 2000MG 2,000 MG/15 ML SYR IV SCH ×2 (15:33→22:45)
[2019-01-20] MEDS: ACETAMINOPHEN 1,000 MG/100 ML VIAL IV PRN (15:41)
[2019-01-20] MEDS: OXYCODONE HCL IR 5 MG TAB (IMMEDIATE RELEASE) PO PRN ×2 (16:54→22:44)
--- NOTE | 2019-01-20 17:06 | Hospitalist Consultation ---
Date of Consultation January 20, 2019 Assessment & Plan (1) Spinal stenosis: S/p lumbar spinal fusion with Dr. Dobbs on 01/20. EBL 400 mL. - Post-operative care per primary team. - Will monitor hgb after surgery. (2) Hypertension: On amlodipine, enalapril, HCTZ, and metoprolol at home. - BP 115/77 after surgery. - Continue home meds; monitor BP tomorrow. (3) Diabetes mellitus, type 2: A1c was 8.1% this month. - Hold home meds - Continue long-acting and sliding scale insulin - Glycemic pharmacist consulted (4) Chronic obstructive pulmonary disease: No current shortness of breath. - Continue home inhalers - DuoNebs PRN (5) DVT prophylaxis: SCDs - Defer chemoprophylaxis to primary team given spinal surgery History of Present Illness Attending Physician: Murali Dobbs, History of Present Illness 63yo F w/ hx of HTN, DM, and COPD who presents as a medical consult after lumbar spinal fusion with Dr. Dobbs on 01/20. The surgery went well with EBL of 400 mL. No operative complications noted. She has a fair amount of pain at this point right after surgery. However, otherwise, she has no pain other places, has no other major issues. Denies shortness of breath or chest pain. No nausea or vomiting. She notes that she has O2 at home, but rarely uses it. Allergies Allergy/AdvReac Type Severity Reaction Status Date / Time bee pollen Allergy Severe diffuse Verified 01/20/19 06:21 swelling aspirin AdvReac Mild nausea Verified 01/20/19 06:21 Latex2 -Systemic Allergic Allergy Severe throat Uncoded 01/10/19 10:45 Response swelling Home Medications Home Medications Medication Instructions Recorded Confirmed Type amlodipine 10 mg PO QAM 12/15/18 01/20/19 History benazepril 20 mg PO BID 12/15/18 01/20/19 History dulaglutide [Trulicity] 0.75 mg SUBCUT WK 12/15/18 01/20/19 History fluticasone furoate-vilanterol 1 inh INHALATION QPM 12/15/18 01/20/19 History [Breo Ellipta] hydrochlorothiazide 25 mg PO QPM 12/15/18 01/20/19 History insulin glargine [Lantus U-100 65 unit SUBCUT QPM 12/15/18 01/20/19 History Insulin] metoprolol tartrate 50 mg PO BID 12/15/18 01/20/19 History pregabalin 200 mg PO TID 12/15/18 01/20/19 History tiotropium bromide [Spiriva with 1 cap INHALATION QPM 12/15/18 01/20/19 History HandiHaler] zolpidem [Ambien] 10 mg PO HS 12/15/18 01/20/19 History Patient History Medical History Chronic obstructive pulmonary disease stable Degenerative disc disease Diabetes mellitus, type 2 IDDM Fibromyalgia Glaucoma Hx of renal failure 2018/medication related/"resolved" Hyperlipidemia Hypertension Insomnia Obesity On home oxygen therapy 4L O2 NC with dyspnea PRN (rare use/no recent use) Osteoarthritis Peripheral neuropathy Spinal stenosis Surgical History H/O total hysterectomy History of section X 3 History of cholecystectomy History of dilatation and curettage History of herniorrhaphy ABDOMINAL HERNIAS REPAIRED X 3 History of laparoscopy History of tooth extraction History of total knee replacement RT/LEFT; Right TKA: 08/05/16: SAB x 1 at L3-L4 + PNB at [facility] Family History Mother Family history of diabetes mellitus Sister Family history of diabetes mellitus Brother Family history of diabetes mellitus Social History Preferred Language: Uzbek Communication Ability: Effective Vice [employer] Required: No Beliefs That Will Affect Care: None Current Living Situation: Spouse Other Information That Helps Us Care for You: No Feels Safe at Home: Yes Safety Concerns: Feels Safe At This Time Smoking Status: Current every day smoker Tobacco Type: cigarettes ; Cigarettes Per Day: 6 CIG DAILY ; Do You Dip or Chew Tobacco: No ; Second Hand Exposure: No ; Tobacco Cessation Education Requested by Patient: No Hx Alcohol Use: No Hx Substance Use: No Review of Systems Review of Systems: All systems reviewed & are unremarkable except as noted in HPI & below Physical Exam Constitutional: + acute distress Eyes: EOM intact bilaterally; no conjunctival abnormality ENMT: external ear and nose normal, oropharynx normal Neck: trachea midline, no thyromegaly normal visual inspection Respiratory: normal respiratory effort, lungs clear to auscultation no respiratory distress Cardiovascular: RRR, no murmur, no edema Gastrointestinal (Abdomen): Inspection/Auscultation: abdomen normal to inspection; abdomen not distended Musculoskeletal: no cyanosis or clubbing, extremities motor strength 5/5 Skin: no rashes, warm and dry Neurologic: moves all extremities and awake Psychiatric: Orientation: alert, oriented to person and cooperative Results & Data Vital Signs (Past 12 Hours) Vital Signs Temp Pulse Pulse Resp BP BP Pulse Ox 01/20/19 15:30 36.9 C 87 18 114/77 92 01/20/19 13:25 65 15 107/66 96 01/20/19 12:25 37.1 C 86 14 126/80 96 01/20/19 12:03 36.9 C 96 H 21 130/89 95 01/20/19 11:53 94 H 14 116/84 94 01/20/19 11:45 94 H 10 L 118/90 95 01/20/19 11:35 94 H 24 132/80 96 01/20/19 11:25 90 17 125/86 96 01/20/19 11:15 91 H 13 140/88 96 01/20/19 11:08 37.4 C 94 H 14 140/89 98 01/20/19 06:24 36.7 C 81 20 136/87 93 PG Care Time/CCT Total # of Minutes Spent Total Time Spent with Patient: Total time spent is greater than 50% in coordination of care (as documented) at patient's floor/unit and/or counseling patient:
[2019-01-20] MEDS: INSULIN GLARGINE SOLOSTAR 100 UNITS/ML 3 ML PEN SC SCH (19:05)
[2019-01-20] MEDS: DOCUSATE SODIUM/SENNA 50/8.6MG TAB PO SCH (20:11)
[2019-01-20] MEDS: hydroCHLOROthiazide 25 MG TAB PO SCH (20:11)
[2019-01-20] MEDS: ENALAPRIL MALEATE 10 MG TAB PO SCH (20:11)
[2019-01-20] MEDS: METOPROLOL TARTRATE 50 MG TAB PO SCH (20:11)
[2019-01-20] MEDS: FLUTICASONE/SALMETEROL (ADVAIR) 500/50 INH 14 PUFF INH SCH (20:12)
[2019-01-20] MEDS: TIOTROPIUM BROMIDE 5 PUFF/90 MCG INH INH SCH (20:12)
[2019-01-20] MEDS ORDERED: HYDROCORTISONE SOD 100 MG in SYRINGE 0 ML IV PRN (20:58)
[2019-01-20] MEDS ORDERED: ZOLPIDEM TARTRATE 10 MG TAB PO SCH (22:00)
[2019-01-21] MEDS: SODIUM CHLORIDE 0.9% 1000ML 1,000 ML IV SCH (01:04)
[2019-01-21] MEDS: KETOROLAC 30 MG/ML VIAL IV SCH ×2 (01:44→08:45)
[2019-01-21] MEDS ORDERED: INSULIN ASPART 100 UNITS/ML 3 ML PEN SC SCH (02:00)
[2019-01-21] MEDS: ACETAMINOPHEN 1,000 MG/100 ML VIAL IV PRN (04:33)
[2019-01-21] MEDS: POLYETHYLENE (MIRALAX) 17 GM PACK PO SCH ×4 (04:57→23:38)
[2019-01-21 06:05] LABS: Basophils # (auto) 0.01 K/uL (0-0.2); Basophils % (auto) 0.1 %; Eosinophils # (auto) 0.19 K/uL (0-0.5); Eosinophils % (auto) 2.1 %; Hematocrit (blood only) 29.1 % (37-47); Hemoglobin 9.7 g/dL (12.0-16.0); Immature Granulocytes # (auto) 0.03 K/uL (0.00-0.02); Immature Granulocytes % (auto) 0.3 %; Lymphocytes # (auto) 1.89 K/uL (1.2-3.4); Lymphocytes % (auto) 20.7 %; Mean Corpuscular Hemoglobin 30.6 pg (25-34); Mean Corpuscular Hgb Conc 33.3 g/dL (32-36); Mean Corpuscular Volume 91.8 fL (80-100); Mean Platelet Volume 10.5 fL (7.4-10.4); Monocytes # (auto) 0.56 K/uL (0.11-0.59); Monocytes % (auto) 6.1 %; Neutrophils # (auto) 6.45 K/uL (1.4-6.5); Neutrophils % (auto) 70.7 %; Platelet Count 203 K/uL (130-400); RDW Coefficient of Variation 15.3 % (11.5-14.5); RDW Standard Deviation 52.4 fL (36.4-46.3); Red Blood Count 3.17 M/uL (4.2-5.4); White Blood Count 9.13 K/uL (4.8-10.8)
[2019-01-21 06:33] LABS: BUN Creatinine Ratio 21.7 (10-20); Creatinine Clr Calc Pharmacy 60.3 ml/min; Est GFR (African American) 69.1; Est GFR (Non-African American) 59.6; Potassium 3.8 mmol/L (3.5-5.1)
--- NOTE | 2019-01-21 07:57 | Anesthesiology Progress Note ---
Date of Service January 21, 2019 Anesthesia Post Procedure Vital Signs Vital Signs: Temp Pulse Pulse Pulse Resp BP BP 01/21/19 03:25 37.1 C 90 16 109/67 01/21/19 00:52 87 108/70 01/21/19 00:45 86 16 123/76 01/20/19 23:12 37.2 C 77 16 93/57 L 78/47 L 01/20/19 20:09 87 122/76 01/20/19 19:07 37.1 C 91 H 18 110/65 01/20/19 15:30 36.9 C 87 18 114/77 01/20/19 13:25 65 15 107/66 01/20/19 12:25 37.1 C 86 14 126/80 01/20/19 12:03 36.9 C 96 H 21 130/89 01/20/19 11:53 94 H 14 116/84 01/20/19 11:45 94 H 10 L 118/90 01/20/19 11:35 94 H 24 132/80 01/20/19 11:25 90 17 125/86 01/20/19 11:15 91 H 13 140/88 01/20/19 11:08 37.4 C 94 H 14 140/89 Pulse Ox 01/21/19 03:25 92 01/21/19 00:52 01/21/19 00:45 90 01/20/19 23:12 92 01/20/19 20:09 01/20/19 19:07 90 01/20/19 15:30 92 01/20/19 13:25 96 01/20/19 12:25 96 01/20/19 12:03 95 01/20/19 11:53 94 01/20/19 11:45 95 01/20/19 11:35 96 01/20/19 11:25 96 01/20/19 11:15 96 01/20/19 11:08 98 Pain Intensity Back: Pain Intensity: 8 Notes Mental Status: alert / awake / arousable and participated in evaluation Patient Amnestic to Procedure: Yes Nausea / Vomiting: adequately controlled Pain: adequately controlled Airway Patency, RR, SpO2: stable & adequate BP & HR: stable & adequate Hydration State: stable & adequate Anesthetic Complications: no major complications apparent and Pt Satisfied with anesthetic care
[2019-01-21] MEDS: OXYCODONE HCL IR 5 MG TAB (IMMEDIATE RELEASE) PO PRN ×3 (08:42→17:25)
[2019-01-21] MEDS: METOPROLOL TARTRATE 50 MG TAB PO SCH ×2 (08:43→20:19)
[2019-01-21] MEDS: ENALAPRIL MALEATE 10 MG TAB PO SCH ×2 (08:43→20:22)
[2019-01-21] MEDS: AMLODIPINE BESYLATE 5 MG TAB PO SCH (08:43)
[2019-01-21] MEDS: FLUTICASONE/SALMETEROL (ADVAIR) 500/50 INH 14 PUFF INH SCH ×2 (08:44→20:16)
[2019-01-21] MEDS: INSULIN ASPART 100 UNITS/ML 3 ML PEN SC SCH ×4 (08:49→22:17)
[2019-01-21] MEDS: PREGABALIN 100 MG CAP PO SCH ×3 (08:53→22:16)
--- NOTE | 2019-01-21 10:29 | Pharmacy Report ---
Pharmacy Glycemic Short Note 2 - Date of Service January 21, 2019 - Glycemic Short BSG Results (Last 24 hours): 01/20/19 01/20/19 01/20/19 11:12 13:06 17:19 Glucose POC Glucose 154 H 151 H 134 H 01/20/19 01/21/19 01/21/19 21:02 00:50 01:40 Glucose POC Glucose 177 H 153 H 154 H 01/21/19 01/21/19 05:53 08:24 Glucose 145 H POC Glucose 175 H OUTPATIENT ANTIDIABETIC REGIMEN: * Lantus 65 units SQ qPM * Trulicity 0.75 mg SQ once weekly on Saturdays * A1c = 8.1 % 01/10/19 ASSESSMENT: * 63 year old T2DM female s/p pod#1 lumbar decompression and fusion * OR records indicate that patient did not receive satya-operative steroids * Patient received 60 units of insulin over the last 24hrs * 50 units of basal insulin * 10 units of prandial/correctional insulin * BSGs ranging 134 -177 mg/dl over the past 24hrs * Slightly lower total daily dose than anticipated d/t surgery yesterday AM * Anticipating insulin regimen will need continued at the same dosing for the next 24hrs d/t : * AM Fasting BSG = 145 mg/dl which is in goal range * Post-prandial BSGs are in goal range * Outpatient Trulicity dose due tomorrow- if pt is not DC tomorrow may need to increase insulin dosing to compensate for GLP-1 not on board PLAN FOR INPATIENT GLYCEMIC CONTROL: * Basal insulin * Lantus 55-65 units SQ HS based on BSG * BSG below 180 --> 55 units * BSg 180 or above --> 65 units * Bolus insulin * NovoLog per scale ACHS or Q6hrs while NPO * Goal Range: Low 110 mg/dL - High 140 mg/dL * Correction Factor: 25 mg/dL/unit * Nutritional / Prandial insulin per carb ratio of 1 unit per 8 grams CHO consumed PLAN FOR DISCHARGE: * A1c = 8.1 % on 01/10/19 * Goal A1c < 7 % based on age and comorbidities * Not sure why patient is not on metformin. Metformin should be started at the time type 2 diabetes is diagnosed unless there are contraindications. Metformin is effective and safe, is inexpensive, and may reduce risk of cardiovascular events and . * Recommend starting: Metformin XR 500mg PO daily with evening meal. Typically the XR formulation of metformin is better tolerated than the immediate release formulation. Continue to titrate metformin dosing upwards as recommended. Dosage increases should be made in increments of 500 mg weekly, up to 2,000 mg/day PO, given in divided doses. Doses above 2000 mg/day may be better tolerated if divided and given 3 times per day with meals. Max: 2,550 mg/day PO, in divided doses * Maximize Trulicity dosing * The dosage may be increased to 1.5 mg subcutaneously once weekly if the glycemic response is inadequate. * Support Patient Self-Management * Healthy Lifestyle (diet, exercise, and smoking cessation) * Disease self-management (SMBG) * Prevention of complications (BP, Lipid goals, Immunizations) * Consider outpatient Diabetes Self-Management Education & Support
--- NOTE | 2019-01-21 13:27 | Hospitalist Progress Note ---
Date of Service January 21, 2019 Assessment & Plan (1) Spinal stenosis: S/p lumbar spinal fusion with Dr. Dobbs on 01/20. EBL 400 mL. - Post-operative care per primary team. - Acute blood loss anemia after surgery - Hgb dropped from 14.8 to 9.7. Will give IV iron today and tomorrow to help replete stores of iron. (2) Hypertension: On amlodipine, enalapril, HCTZ, and metoprolol at home. - BP 115/77 after surgery. - Continue home meds; BP looks good today. Lio. (3) Diabetes mellitus, type 2: A1c was 8.1% this month. - Hold home meds - Continue long-acting and sliding scale insulin - Glycemic pharmacist consulted (4) Chronic obstructive pulmonary disease: No current shortness of breath. - Continue home inhalers - DuoNebs PRN (5) DVT prophylaxis: SCDs - Defer chemoprophylaxis to primary team given spinal surgery Given medical stability, Hospital Medicine team will sign off. Please re-consult with any questions or concerns. Thank you for letting us assist in the care of this patient! Subjective Doing well today. Overall, had some confusion overnight, but this morning, she is not confused, is awake, and is doing very well. Still some back pain, but significantly improved compared to yesterday. Reports no fevers/chills, chest pain, shortness of breath, abdominal pain, nausea, or vomiting. Physical Exam Constitutional: no acute distress Eyes: EOM intact bilaterally; no conjunctival abnormality ENMT: external ear and nose normal, oropharynx normal Neck: trachea midline, no thyromegaly normal visual inspection Respiratory: normal respiratory effort, lungs clear to auscultation no respiratory distress Cardiovascular: RRR, no murmur, no edema Gastrointestinal (Abdomen): Inspection/Auscultation: abdomen normal to inspection; abdomen not distended Musculoskeletal: no cyanosis or clubbing, extremities motor strength 5/5 Skin: no rashes, warm and dry Neurologic: moves all extremities and awake Psychiatric: Orientation: alert, oriented to person and cooperative Results & Data Vital Signs (Past 12 Hours) Vital Signs Temp Pulse Pulse Resp BP BP Pulse Ox 01/21/19 11:57 116/77 01/21/19 11:50 37.1 C 80 16 86/52 L 90 01/21/19 07:55 36.9 C 90 18 110/70 90 01/21/19 03:25 37.1 C 90 16 109/67 92 PG Care Time/CCT Total # of Minutes Spent Total Time Spent with Patient: Total time spent is greater than 50% in coordination of care (as documented) at patient's floor/unit and/or counseling patient:
[2019-01-21] MEDS: IRON SUCROSE 200 MG in 0.9 % SODIUM CHLORIDE 100 ML IV SCH (14:01)
[2019-01-21] MEDS: INSULIN GLARGINE SOLOSTAR 100 UNITS/ML 3 ML PEN SC SCH (18:15)
[2019-01-21] MEDS ORDERED: ACETAMINOPHEN 325 MG TAB PO PRN (18:54)
[2019-01-21] MEDS: hydroCHLOROthiazide 25 MG TAB PO SCH (20:20)
[2019-01-21] MEDS: DOCUSATE SODIUM/SENNA 50/8.6MG TAB PO SCH (20:20)
[2019-01-21] MEDS: TIOTROPIUM BROMIDE 5 PUFF/90 MCG INH INH SCH (20:21)
[2019-01-21] MEDS: KETOROLAC TROMETHAMINE 15 MG/ML VIAL IV PRN (21:44)
[2019-01-21] MEDS ORDERED: Nursing to Pharmacy Communication ONE (22:09)
[2019-01-22] MEDS: KETOROLAC TROMETHAMINE 15 MG/ML VIAL IV PRN (04:12)
[2019-01-22] MEDS: POLYETHYLENE (MIRALAX) 17 GM PACK PO SCH (06:14)
[2019-01-22 06:40] LABS: Basophils # (auto) 0.02 K/uL (0-0.2); Basophils % (auto) 0.2 %; Eosinophils # (auto) 0.32 K/uL (0-0.5); Eosinophils % (auto) 3.2 %; Hematocrit (blood only) 29.6 % (37-47); Hemoglobin 9.5 g/dL (12.0-16.0); Immature Granulocytes # (auto) 0.06 K/uL (0.00-0.02); Immature Granulocytes % (auto) 0.6 %; Lymphocytes % (auto) 18.1 %; Mean Corpuscular Hemoglobin 29.9 pg (25-34); Mean Corpuscular Hgb Conc 32.1 g/dL (32-36); Mean Corpuscular Volume 93.1 fL (80-100); Mean Platelet Volume 10.9 fL (7.4-10.4); Monocytes # (auto) 0.68 K/uL (0.11-0.59); Monocytes % (auto) 6.8 %; Neutrophils # (auto) 7.09 K/uL (1.4-6.5); Neutrophils % (auto) 71.1 %; Platelet Count 211 K/uL (130-400); RDW Coefficient of Variation 15.3 % (11.5-14.5); Red Blood Count 3.18 M/uL (4.2-5.4); White Blood Count 9.97 K/uL (4.8-10.8)
[2019-01-22 07:19] LABS: BUN Creatinine Ratio 23.7 (10-20); Creatinine Clr Calc Pharmacy 72.5 ml/min; Est GFR (African American) 86.3; Est GFR (Non-African American) 74.5; Potassium 4.1 mmol/L (3.5-5.1)
[2019-01-22] MEDS: INSULIN ASPART 100 UNITS/ML 3 ML PEN SC SCH (07:33)
[2019-01-22] MEDS: FLUTICASONE/SALMETEROL (ADVAIR) 500/50 INH 14 PUFF INH SCH (07:34)
[2019-01-22] MEDS: AMLODIPINE BESYLATE 5 MG TAB PO SCH (07:35)
[2019-01-22] MEDS: METOPROLOL TARTRATE 50 MG TAB PO SCH (07:35)
[2019-01-22] MEDS: PREGABALIN 100 MG CAP PO SCH (07:35)
[2019-01-22] MEDS: OXYCODONE HCL IR 5 MG TAB (IMMEDIATE RELEASE) PO PRN (07:39)
[2019-01-22] MEDS: ENALAPRIL MALEATE 10 MG TAB PO SCH (07:40)
[2019-01-22] MEDS: IRON SUCROSE 200 MG in 0.9 % SODIUM CHLORIDE 100 ML IV SCH (07:47)
--- NOTE | 2019-01-22 09:39 | Discharge Summary ---
Marie had very rigorous lumbar spine surgery performed a few days earlier. She was admitted for postop care and medical management. She was stabilized. She had a relatively uneventful course, up, ambulatory, taking p.o. At the time of her discharge, she had no chest pain, shortness of breath, confusion or leg tenderness. Wound clean protected. ASSESSMENT: Status post lumbar spine reconstructive surgery. PLAN: We will discharge her home today. Instructions, precautions, brace for support. She has a walker with wheels at home and a prescription called to her pharmacy. She also has a followup appointment.
--- NOTE | 2019-01-22 16:34 | Hospitalist Progress Note ---
Date of Service January 22, 2019 Assessment & Plan (1) Spinal stenosis: S/p lumbar spinal fusion with Dr. Dobbs on 01/20. EBL 400 mL. - Post-operative care per primary team. - Acute blood loss anemia after surgery - Hgb dropped from 14.8 to 9.7. Stable at 9.5 on 01/22. Received 2 doses of IV iron while inpatient. (2) Hypertension: On amlodipine, enalapril, HCTZ, and metoprolol at home. - Continue home meds; BP looks good today. (3) Diabetes mellitus, type 2: A1c was 8.1% this month. - Hold home meds - Continue long-acting and sliding scale insulin - Glycemic pharmacist consulted (4) Chronic obstructive pulmonary disease: No current shortness of breath. - Continue home inhalers - DuoNebs PRN (5) DVT prophylaxis: SCDs - Defer chemoprophylaxis to primary team given spinal surgery Subjective Doing well today. Had more confusion last night, but is oriented this morning. She does not remember the confusion and reports that she is not sure why they would have withheld pain medication from her. Reports no fevers/chills, chest pain, shortness of breath, abdominal pain, nausea, or vomiting. Physical Exam Constitutional: no acute distress Eyes: EOM intact bilaterally; no conjunctival abnormality ENMT: external ear and nose normal, oropharynx normal Neck: trachea midline, no thyromegaly normal visual inspection Respiratory: normal respiratory effort, lungs clear to auscultation no respiratory distress Cardiovascular: RRR, no murmur, no edema Gastrointestinal (Abdomen): Inspection/Auscultation: abdomen normal to inspection; abdomen not distended Musculoskeletal: no cyanosis or clubbing, extremities motor strength 5/5 Skin: no rashes, warm and dry Neurologic: moves all extremities and awake Psychiatric: Orientation: alert, oriented to person and cooperative Results & Data Vital Signs (Past 12 Hours) Vital Signs Temp Pulse Pulse Pulse Resp BP BP 01/22/19 09:55 36.8 C 80 90 85 16 121/77 105/71 01/22/19 06:41 36.8 C 85 16 105/71 Pulse Ox 01/22/19 09:55 92 01/22/19 06:41 92 PG Care Time/CCT Total # of Minutes Spent Total Time Spent with Patient: Total time spent is greater than 50% in coordination of care (as documented) at patient's floor/unit and/or counseling patient:
== END 2019-01-22 11:04 | disposition home health service (06) | DRG 454 ==
LOC: ASU 06:04 → 3E 11:12

== ENCOUNTER 2019-02-24 05:56 | Observation (INO) ==
--- NOTE | 2019-02-11 08:58 | Anesthesiology Consultation ---
Date of Service February 11, 2019 Assessment & Plan (1) Encounter for pre-operative examination: Chart Review Chart Review: Acceptable Risk for Surgery and Patient NOT seen in Pre Admission Testing Consults Requested none will order DOS CBC History Surgery Operation Date: 02/14/19 09:50 Proposed Procedures p L3-L4, L4-L5 Revision Lumbar Spine Surgery, L3-L4, L4-L5 Removal Hardware - Murali Dobbs, Height/Weight Height: 5 ft 2 in Weight: 81.647 kg Allergies Allergy/AdvReac Type Severity Reaction Status Date / Time bee pollen Allergy Severe diffuse Verified 02/10/19 11:21 swelling aspirin AdvReac Mild nausea Verified 02/10/19 11:21 Latex2 -Systemic Allergic Allergy Severe throat Uncoded 02/10/19 11:21 Response swelling Medications Home Medications Medication Instructions Recorded Confirmed Last Taken Breo Ellipta 1 inh INHALATION QPM 12/15/18 02/10/19 01/20/19 05:30 Lantus U-100 Insulin 65 unit SUBCUT QPM 12/15/18 02/10/19 01/19/19 18:00 Spiriva with HandiHaler 1 cap INHALATION QPM 12/15/18 02/10/19 01/19/19 18:00 Trulicity 0.75 mg SUBCUT WK 12/15/18 02/10/19 01/15/19 08:00 amlodipine 10 mg PO QAM 12/15/18 02/10/19 01/20/19 05:30 benazepril 20 mg PO BID 12/15/18 02/10/19 01/19/19 18:00 hydrochlorothiazide 25 mg PO QPM 12/15/18 02/10/19 01/19/19 18:00 metoprolol tartrate 50 mg PO BID 12/15/18 02/10/19 01/20/19 05:30 pregabalin 200 mg PO TID 12/15/18 02/10/19 01/20/19 05:30 zolpidem [Ambien] 10 mg PO HS 12/15/18 02/10/19 01/19/19 22:00 acetaminophen [Tylenol Arthritis 1,300 mg PO Q6H PRN 02/10/19 02/10/19 Unknown Pain] hydrocodone-acetaminophen [[place]] 1 - 2 tab PO Q6H PRN 02/10/19 02/10/19 Unknown hydromorphone 2 mg tablet 2 - 4 mg PO Q6 PRN #30 tab 02/11/19 Unknown Past Medical History Medical History Chronic back pain and bilateral leg pain -- worse since Lumbar Fusion 01/2019 Chronic obstructive pulmonary disease stable Degenerative disc disease Diabetes mellitus, type 2 IDDM Fibromyalgia Glaucoma Hx of renal failure 2018/medication related/"resolved" Hyperlipidemia Hypertension Insomnia Obesity On home oxygen therapy 4L O2 NC with dyspnea PRN (rare use/no recent use) Osteoarthritis Peripheral neuropathy Spinal stenosis Past Family History Family History Mother Family history of diabetes mellitus Sister Family history of diabetes mellitus Brother Family history of diabetes mellitus Past Surgical History Surgical History (Updated 02/11/19 @ 08:54 by Rahul Mo MD) Fusion of spine lumbar fusion (L3-L4,L4-L5) 01/2019. MAC 3, grade 2 view. No issues. H/O total hysterectomy History of section X 3 History of cholecystectomy History of dilatation and curettage History of herniorrhaphy ABDOMINAL HERNIAS REPAIRED X 3 History of laparoscopy History of tooth extraction History of total knee replacement RT/LEFT; Right TKA: 08/05/16: SAB x 1 at L3-L4 + PNB at [facility] Social History Smoking Status: Current every day smoker tobacco type: cigarettes Smoking cigarettes per day: 6 CIGARETTES DAILY (TOTAL USE X 50 YEARS) Do You Dip or Chew Tobacco: No Hx Alcohol Use: No Hx Substance Use: No substance use type: does not use Testing Laboratory Results Laboratory Tests 01/22/19 01/22/19 06:03 06:03 WBC 9.97 Hgb 9.5 L Plt Count 211 Sodium 137 Potassium 4.1 Chloride 105 Carbon Dioxide 28 BUN 20 H Creatinine 0.84 Glucose 147 H Electrocardiogram Date: 01/10/19 Findings: + NSR @ (70) Normal sinus rhythm Normal ECG When compared with ECG of 10-AUG-2016 08:00, T wave inversion no longer evident in Inferior leads Confirmed by Sai Espana ([id number]) on 01/10/2019 4:13:00 PM Chest X-Ray Date: 01/10/19 TWO VIEW CHEST CLINICAL HISTORY: Preoperative examination. FINDINGS: PA and lateral chest radiographs are compared to study dated 08/09/2016 and correlated with chest CT dated 08/10/2016. The cardiomediastinal silhouette is unremarkable. There is mild bibasilar scarring/atelectasis. No airspace consolidation or pleural effusion is identified. There is no pneumothorax. The skeletal structures are osteopenic. The bony thorax appears intact. IMPRESSION: No active disease in the chest.
--- NOTE | 2019-02-23 10:17 | History and Physical Report ---
DATE OF ADMISSION: 02/24/2019 CHIEF COMPLAINT: Lower extremity difficulty, paresthesias and weakness. Marie is a delightful patient. I performed fairly significant surgery on her 4 weeks ago. She did well in short run. About 5 days after being home, I believe she notes increasing lower extremity difficulties. She came in for her routine postoperative film and I was able to picker / packer the fact that one of her implants and the spinal canal had migrated posteriorly with putting pressure on the cauda equina on the right hand side. She is set up for revision surgery tomorrow. PAST MEDICAL HISTORY: Positive for COPD, degenerative disc disease, diabetes, glaucoma. PAST SURGICAL HISTORY: , hysterectomy, cholecystectomy. REVIEW OF SYSTEMS: She denies blurred vision, double vision, tinnitus or vertigo. Denies chest pain, palpitations. Denies shortness of breath or wheezing. Denies nausea, vomiting or bowel and bladder consequences. OBJECTIVE: GENERAL: She is alert, oriented, afebrile. VITAL SIGNS: Blood pressure 120/80, pulse 80, respiratory rate 16. HEENT: Pupils react to light and accommodation. Ear, nose and throat clear. CARDIAC: Normal S1, S2, no S3. LUNGS: Clear to auscultation. No rales, rhonchi, wheezing. ABDOMEN: Soft, nontender. NEUROLOGIC: She has some weakness of dorsiflexion and plantarflexion. She has loss of sensation. Her images reviewed. IMPRESSION: Includes that of a backing out of a implant in the lumbar spine. PLAN: Revision surgery tomorrow at [facility]. The procedure would be a revision lumbar spine surgery, removal of hardware L3-L5.
[~2019-02-24 05:56] MED LIST changes: -CEFAZOLIN 2000MG 2,000 MG/15 ML SYR IV SCH; -SODIUM CHLORIDE 0.9% 1,000 ML IV SCH
[2019-02-24] MEDS ORDERED: LR 15ML/HR IV SCH ×2 (06:00)
[2019-02-24 06:29] LABS: Hematocrit (blood only) 37.9 % (37-47); Hemoglobin 12.4 g/dL (12.0-16.0); Mean Corpuscular Volume 91.8 fL (80-100); Platelet Count 330 K/uL (130-400); RDW Coefficient of Variation 16.1 % (11.5-14.5); RDW Standard Deviation 53.8 fL (36.4-46.3); Red Blood Count 4.13 M/uL (4.2-5.4); White Blood Count 9.54 K/uL (4.8-10.8)
[2019-02-24 06:38] LABS: Mean Corpuscular Hgb Conc 32.7 g/dL (32-36)
[2019-02-24] MEDS ORDERED: LIDOCAINE HCL 2% 2 ML VIAL/AMP(20MG/ML) INFIL ONE (06:43)
[2019-02-24] MEDS ORDERED: ROCURONIUM BROMIDE 10 MG/ML 5 ML VIAL ONE ×2 (06:43→09:18)
[2019-02-24] MEDS ORDERED: DEXAMETHASONE SOD INJ 4 MG/ML VIAL ONE (06:43)
[2019-02-24] MEDS ORDERED: ONDANSETRON INJ 2 MG/ML 2 ML VIAL ONE (06:43)
[2019-02-24] MEDS ORDERED: NEOSTIGMINE METHYLSULFATE 5 MG/5 ML SYR ONE (06:43)
[2019-02-24] MEDS ORDERED: GLYCOPYRROLATE 0.2 MG/ML VIAL ONE (06:43)
[2019-02-24] MEDS ORDERED: MIDAZOLAM HCL 1 MG/ML 2ML VIAL ONE (06:43)
[2019-02-24] MEDS ORDERED: PROPOFOL IV EMULSION 10 MG/ML 20 ML VIAL IV ONE (06:43)
[2019-02-24] MEDS ORDERED: fentaNYL citrate 100 MCG/2 ML VIAL ONE (06:43)
[2019-02-24] MEDS ORDERED: HYDROmorphone INJ 2 MG/ML SYR/VIAL ONE (06:44)
[2019-02-24] MEDS ORDERED: ALBUMIN HUMAN 5% 12.5 GM/250 ML VIAL IV ONE (06:52)
[2019-02-24] MEDS ORDERED: VANCOMYCIN HCL 1000MG/20ML VIAL ONE (07:12)
[2019-02-24] MEDS ORDERED: THROMBIN FOR SOLN 20000 UNIT KIT ONE (07:12)
[2019-02-24] MEDS ORDERED: GELATIN SPONGE SZ 100 ONE (07:12)
[2019-02-24] MEDS ORDERED: BUPIVACAINE 0.5 % 5 MG/1 ML MPF 30ML VIAL ONE (07:13)
[2019-02-24] MEDS ORDERED: BACITRACIN INJ 50,000 UNIT VIAL ONE (07:13)
[2019-02-24] MEDS ORDERED: EPINEPHrine INJ 1 MG/ML AMP ONE (07:13)
[2019-02-24] MEDS ORDERED: CEFAZOLIN 2000MG 2,000 MG/15 ML SYR IV ONE (07:22)
--- NOTE | 2019-02-24 07:40 | History & Physical Bridge Note ---
Date of Service February 24, 2019 History & Physical Bridge Note I have examined the patient, reviewed the History & Physical and in the interval since the performance of the History & Physical I have noted the following changes of clinical significance: no changes noted
[2019-02-24] MEDS ORDERED: PROMETHAZINE HCL 12.5 MG in SODIUM CHLORIDE 0.9% 50 ML IV PRN ×2 (08:20→11:52)
[2019-02-24] MEDS ORDERED: METOCLOPRAMIDE HCL INJ 5 MG/ML 2 ML VIAL IV PRN (08:20)
[2019-02-24] MEDS ORDERED: ePHEDrine sulfate 50 MG/ML AMP IV PRN (08:20)
[2019-02-24] MEDS ORDERED: HYDROmorphone INJ 2 MG/ML SYR/VIAL IV PRN (08:20)
[2019-02-24] MEDS ORDERED: DEXAMETHASONE SOD INJ 4 MG/ML VIAL IV PRN (08:20)
[2019-02-24] MEDS ORDERED: ATROPINE SULFATE 0.1 MG/ML 10ML SYR IV PRN (08:20)
[2019-02-24] MEDS ORDERED: ONDANSETRON INJ 2 MG/ML 2 ML VIAL IV PRN ×2 (08:20→11:52)
--- NOTE | 2019-02-24 09:49 | Fluoroscopy Report ---
INTRAOPERATIVE RADIOGRAPH CLINICAL HISTORY: L3-L4 spinal fusion. Fluoroscopy time: 7 seconds. FINDINGS: A single spot fluoroscopic image of the lumbar spine is presented. There has been discectom y at L3-L4 with laminectomy and posterior fusion at this level. Interpedicular screws are in place. T he orthopedic hardware appears intact. IMPRESSION: Intraoperative image from L3-L4 spinal fusion. Electronically signed by: Geovanni Olivo M.D. 02/24/2019 9:47 AM
--- NOTE | 2019-02-24 10:21 | Post Operative Brief Note ---
PG Immediate Post Op with CF Date of Surgery February 24, 2019 Pre & Post Diagnosis Operation Date: 02/24/19 08:15 Pre-Op Diagnosis: Failure of Hardware Post-Op Diagnosis: Failure of Hardware I identified the patient and participated in the time-out.: Yes Procedure Operation Date: 02/24/19 08:15 Actual Procedures p L3-5 Removal of Spinal Hardware, Decompression and Laminectomy L5, Posterior Laminal Fusion L3-5, Reinsertion of Lumbar Hardware L3-4(Not Applicable) - Murali Dobbs DO Surgeon Murali Dobbs DO [employer] Head Sp minor Estimated Blood Loss 150 Findings Consistent with Post-Op Diagnosis Severe spinal stenosis. Severe osteoporosis Breakout of pedicle screws Migration of posterior interbody device Specimens Specimen Description: none per surgeon Drains Meier Catheter and Hemovac Drain Complications none Disposition Accompanied Patient To Recovery: Yes Overlapping Procedure I was immediately available: during the entire case.
--- NOTE | 2019-02-24 10:33 | Operative Report ---
PG Post Operative Report Pre & Post Diagnosis Operation Date: 02/24/19 08:15 Pre-Op Diagnosis: Failure of Hardware Post-Op Diagnosis: Failure of Hardware; severe stenosis, severe osteoporosis, breakout of pedicle screws at L5, loosening of pedicle screws at L4, posterior migration of interbody device at L4-5 I identified the patient and participated in the time-out.: Yes Procedure Operation Date: 02/24/19 08:15 Actual Procedures p L3-5 Removal of Spinal Hardware, Decompression and Laminectomy L5, Posterior Laminal Fusion L3-5, Reinsertion of Lumbar Hardware L3-4(Not Applicable) - Murali Dobbs DO Actual procedure: Removal of spinal implants L3-L4-L5 removal of posterior cage L4-5. Decompression L4-L5 and S1 lumbar spine. Vision at L3-4 with larger screws placed under compression. Posterior lateral fusion L3-5 with a combination of morselized autograft, allograft and infuse Surgeon Murali Dobbs DO Local Telephone Operator Sp minor Estimated Blood Loss 150 Findings Consistent with Post-Op Diagnosis Severe stenosis, severe osteoporosis, breakout of post pedicle screws at L5, loosening of pedicle screws at L4 and lastly posterior migration of interbody device Specimens No specimens Drains Hemovac drain Anesthesia Type General Indications Indications of procedure were the patient inability to stand walk and ambulate. He was only comfortable minimally at bedrest Description of Procedure Patient was taken to the operating room a general intubated anesthetic provide the patient. Her preop images were thoroughly evaluated and studied by myself prior to surgical intervention Fully catheter administered patient placed prone on Enrique table scrubbed prepped draped sterile Formal timeout taken We commenced with surgery use her old skin incision fashion incision she already started to granulate tissue in her soft tissue he is healing had begun. We able to dissect out over the prior pedicle screw instrumentation from L3-L4 and L5 was obvious that the pedicle screws at 5 and completely loosened the 4 pedicle screws were marginal. The L3 pedicle screw seemed sturdy. Because of the failure resultant slip also has developed significant spinal sten osis of the L5 lamina. It appeared that the entire pedicle bilaterally of the L5 vertebrae had broken. I believe this to be result of severe osteoporosis and in retrospect her poor bone quality was not able to withstand pedicle screws Carefully decompress the lamina 5 providing foraminotomies at L5 and S1 the other level which was 3 4 was well decompressed and needed no revision. Then was able to retrieve the interbody device called a cage at L4-5 it had migrated posteriorly to the nerve root and facet joint. Fortunately did not injure the dura I saw no evidence of an actual nerve root injury. We finished the decompression bilaterally. My assessment was because of her severe osteoporosis and failure of the spinal implants found to be an error to repeat this have additional failures. I felt the L3-4 interval to be appropriate relatively stable put in a larger screw at L4 bilaterally 7.5 mm in diameter completed this fusion. Plans were then left at L3 and 4 locked down under compression Then bone grafted the spine adding bone graft out over the transverse processes and sacral ala used infuse from L5 to the sacrum and L4. Morselized autograft and allograft bone fragments were used at L3-4 Prior to this we had irrigated thoroughly close over Hemovac drain 1 Vicryl suture. The subcuticular layer closed with 2-0 Vicryl suture. 3-0 nylon used on the skin surfaces. Sterile dressings applied Implants used: TVPage Bone graft used: Morselized autograft, morselized allograft, infuse Sponge and needle count correct No apparent complications I attest to the content of the Intraoperative Record and any orders documented therein. Any exceptions are noted below.
[2019-02-24] MEDS: fentaNYL citrate 100 MCG/2 ML VIAL IV PRN ×3 (10:54→11:23)
--- NOTE | 2019-02-24 11:18 | Anesthesiology Progress Note ---
Date of Service February 24, 2019 Anesthesia Post Procedure Vital Signs Vital Signs: Temp Pulse Pulse Resp BP Pulse Ox 02/24/19 11:15 36.9 C 86 16 142/86 H 96 02/24/19 11:05 83 18 125/94 93 02/24/19 10:55 81 18 140/92 92 02/24/19 10:45 83 16 154/84 H 95 02/24/19 10:35 89 15 154/74 H 93 02/24/19 10:25 87 15 103/59 L 93 02/24/19 10:18 36.9 C 89 16 90/62 L 96 02/24/19 06:33 37 C 78 20 110/65 93 Pain Intensity Bilateral Leg: Pain Intensity: 9 Back: Pain Intensity: 4 Transfer of Care Handoff Completed per policy Notes Mental Status: alert / awake / arousable and participated in evaluation Patient Amnestic to Procedure: Yes Nausea / Vomiting: adequately controlled Pain: adequately controlled Airway Patency, RR, SpO2: stable & adequate BP & HR: stable & adequate Hydration State: stable & adequate Anesthetic Complications: no major complications apparent
[2019-02-24] MEDS ORDERED: NON-FORMULARY MEDICATION (Dulaglutide [Trulicity] 0.75 MG) SQ SCH (11:52)
[2019-02-24] MEDS ORDERED: DO NOT ADMINISTER FLU VACCINE PRN (11:52)
[2019-02-24] MEDS ORDERED: HYDROmorphone INJ 0.5 MG/0.5 ML SYR IV PRN (11:52)
[2019-02-24] MEDS ORDERED: NALOXONE HCL 0.4 MG/1 ML VIAL/CARP IV PRN (11:52)
[2019-02-24] MEDS ORDERED: MAGNESIUM HYDROXIDE SUSP 30 ML UDC PO PRN (11:52)
[2019-02-24] MEDS ORDERED: bisacodyL 10 MG SUPP PR PRN (11:52)
[2019-02-24] MEDS ORDERED: ONDANSETRON 4 MG OD TAB PO PRN (11:52)
[2019-02-24] MEDS ORDERED: SOD PHOSPHATE/SOD BIPHOSPHATE ENEMA 132 ML BTL PR PRN (11:52)
[2019-02-24] MEDS ORDERED: DO NOT ADMINISTER PNEUMOCOCCAL VACCINE PRN (11:52)
[2019-02-24] MEDS ORDERED: ALUMINUM/MAGNESIUM SUSP 30 ML UDC PO PRN (11:52)
[2019-02-24] MEDS ORDERED: FAMOTIDINE 20 MG TAB PO PRN (11:52)
[2019-02-24] MEDS ORDERED: PHARMACY GLYCEMIC MGMT CONSULT PRN (12:49)
[2019-02-24] MEDS ORDERED: INSULIN GLARGINE SOLOSTAR 100 UNITS/ML 3 ML PEN SQ ONE (13:00)
[2019-02-24] MEDS ORDERED: ALBUT/IPRATROP 3MG/0.5MG NEB 3 ML VIAL NEB PRN (13:31)
[2019-02-24] MEDS: INSULIN ASPART 100 UNITS/ML 3 ML PEN SC SCH ×4 (13:49→23:56)
[2019-02-24] MEDS: KETOROLAC 30 MG/ML VIAL IV SCH ×3 (13:49→19:51)
[2019-02-24] MEDS: PREGABALIN 100 MG CAP PO SCH ×2 (13:52→20:49)
[2019-02-24] MEDS: SODIUM CHLORIDE 0.9% 1000ML 1,000 ML IV SCH (13:59)
[2019-02-24] MEDS: ACETAMINOPHEN 1,000 MG/100 ML VIAL IV PRN (13:59)
[2019-02-24] MEDS: ALBUT/IPRATROP 3MG/0.5MG NEB 3 ML VIAL NEB SCH ×3 (15:23→22:52)
--- NOTE | 2019-02-24 15:28 | Pharmacy Report ---
Glycemic Control Consultation - Date of Service February 24, 2019 - Scope Scope: Glycemic Pharmacist consulted by MEI Araya on 02/24 for glycemic control and to write orders per [facility] inpatient glycemic control protocol - Objective Weight: 86.772 kg Accuchecks BSG (last 24hrs): 02/24/19 02/24/19 02/24/19 06:29 10:19 12:11 POC Glucose 148 H 167 H 202 H - Recent Pertinent Medications Outpatient Anti-diabetic Regimen: * Lantus 65 units qPM * Trulicity 0.75 mg SQ once weekly * A1c = 8.1 % 01/10/19 Risk Factors for Insulin Resistance: * Steroids: Decadron 8 mg IV periop * Recent Surgery: POD 0 s/p spinal surgery * Diet: T2DM - Assessment & Plan Assessment & Plan: ASSESSMENT: * 64 y/o F admitted for lumbar revision surgery. She is a T2DM known to the glycemic service from her previous surgical admission. During that admission, she did NOT receive steroids and required ~50-60 units of basal insulin daily. This admission differs from the last admission in that she received Decadron, which can substantially increase BSGs. * BSG already up to 202 mg/dL at lunch. Last dose of Lantus was 65 units last evening. Will increase basal dose by ~20-25% and give dose now to have more on board with the steroids. Will aggressively dose bolus insulin for the next 24 hours, due to the hyperglycemic effects of steroids on postprandial BSGs. PLAN FOR INPATIENT GLYCEMIC CONTROL: * Holding GLP-1 agonist * Basal insulin * Lantus 80 units x 1 now, then * Lantus 65 units qPM starting tomorrow (home dose) * Bolus insulin * NovoLog per scale ACHS or Q6hrs while NPO + 00,04 checks to provide additional insulin if necessary * Goal Range: Low 110 mg/dL - High 140 mg/dL * Correction Factor: 10 mg/dL/unit * Nutritional / Prandial insulin per carb ratio of 1 unit per 4 grams CHO consumed * Please note that the plan above was derived based on current level of insulin resistance and hospital stress. These recommendations are appropriate for inpatient admission only. Plan of care upon discharge will need to be reassessed to avoid potential outpatient hypo/hyperglycemia. Thank you.
[2019-02-24] MEDS: OXYCODONE HCL IR 5 MG TAB (IMMEDIATE RELEASE) PO PRN ×2 (15:37→20:49)
[2019-02-24] MEDS: CEFAZOLIN 2000MG 2,000 MG/15 ML SYR IV SCH ×2 (15:38→23:46)
--- NOTE | 2019-02-24 17:26 | Hospitalist Consultation ---
Date of Consultation February 24, 2019 Assessment & Plan (1) Radicular low back pain: s/p OR on 02/[address] Dobbs pre-op Hb 12/4 Pt states she will need a shower chair and bedside commode on d/c (2) Hypertension: continue home meds (3) Chronic obstructive pulmonary disease: Supposed to use home O2, pt states HS only but records suggest otherwise Regardless, she is not using at all Wheezing noted, mild and likely related to intubation Nebs x2 today and then PRN, monitor No steroids needed at this time (4) Diabetes mellitus, type 2: continue home meds (5) Peripheral neuropathy: continue home meds (6) Hyperlipidemia: continue home meds (7) Fibromyalgia: continue home meds (8) Tobacco use disorder: Requests nicotine patch (9) DVT prophylaxis: As per ortho History of Present Illness Attending Physician: Murali Dobbs, History of Present Illness 64 y/o F who was admitted on 02/24 s/p lumbar fusion with Dr. Dobbs. Pt is doing well post-op. Tolerating PO without issue. Pt denies fever, SOB, chest pain, abd pain, n/v/c/d, LE swelling. She has hx of han pain that is generally controlled with home meds, but is present now. Allergies Allergy/AdvReac Type Severity Reaction Status Date / Time bee pollen Allergy Severe diffuse Verified 02/24/19 06:25 swelling aspirin AdvReac Mild nausea Verified 02/24/19 06:25 Latex2 -Systemic Allergic Allergy Severe throat Uncoded 02/24/19 06:25 Response swelling Home Medications Home Medications Medication Instructions Recorded Confirmed Type Breo Ellipta 1 inh INHALATION QPM 12/15/18 02/24/19 History Lantus U-100 Insulin 65 unit SUBCUT QPM 12/15/18 02/24/19 History Spiriva with HandiHaler 1 cap INHALATION QPM 12/15/18 02/24/19 History Trulicity 0.75 mg SUBCUT WK 12/15/18 02/24/19 History amlodipine 10 mg PO QAM 12/15/18 02/24/19 History benazepril 20 mg PO BID 12/15/18 02/24/19 History hydrochlorothiazide 25 mg PO QPM 12/15/18 02/24/19 History metoprolol tartrate 50 mg PO BID 12/15/18 02/24/19 History pregabalin 200 mg PO TID 12/15/18 02/24/19 History zolpidem [Ambien] 10 mg PO HS 12/15/18 02/24/19 History acetaminophen [Tylenol Arthritis 1,300 mg PO Q6H PRN 02/10/19 02/24/19 History Pain] hydromorphone 2 mg tablet 2 - 4 mg PO Q6 PRN #30 tab 02/22/19 02/24/19 Rx Patient History Medical History Chronic back pain and bilateral leg pain -- worse since Lumbar Fusion 01/2019 Chronic obstructive pulmonary disease stable Degenerative disc disease Diabetes mellitus, type 2 IDDM Fibromyalgia Glaucoma Hx of renal failure 2017/medication related/"resolved" Hyperlipidemia Hypertension Insomnia Obesity On home oxygen therapy 4L O2 NC with dyspnea PRN (rare use/no recent use) Osteoarthritis Peripheral neuropathy Spinal stenosis Surgical History Fusion of spine lumbar fusion (L3-L4,L4-L5) 01/2019. MAC 3, grade 2 view. No issues. H/O total hysterectomy History of section X 3 History of cholecystectomy History of dilatation and curettage History of herniorrhaphy ABDOMINAL HERNIAS REPAIRED X 3 History of laparoscopy History of tooth extraction History of total knee replacement RT/LEFT; Right TKA: 08/05/16: SAB x 1 at L3-L4 + PNB at [facility] Family History Mother Family history of diabetes mellitus Sister Family history of diabetes mellitus Brother Family history of diabetes mellitus Social History Preferred Language: Venezuelan Communication Ability: Effective Transmitter Tester Required: No Beliefs That Will Affect Care: None marital status: Current Living Situation: Spouse Other Information That Helps Us Care for You: No Feels Safe at Home: Yes Safety Concerns: Feels Safe At This Time Smoking Status: Current every day smoker Tobacco Type: cigarettes ; Cigarettes Per Day: 6 CIGARETTES DAILY (TOTAL USE X 50 YEARS) ; Do You Dip or Chew Tobacco: No ; Second Hand Exposure: Yes ; Tobacco Cessation Education Requested by Patient: No Hx Alcohol Use: No Hx Substance Use: No Review of Systems Review of Systems: Pertinent positives and negatives reviewed in HPI--all others negative Physical Exam Constitutional: WD/WN, vitals as above Eyes: normal visual villegas by confrontation and + anicteric sclerae Neck: normal visual inspection and trachea midline Respiratory: normal respiratory effort; no respiratory distress Auscultation: + wheezes (diffuse); no crackles Cardiovascular: Rate/Rhythm: regular rate and regular rhythm Gastrointestinal (Abdomen): Inspection/Auscultation: abdomen not distended Percussion/Palpation: abdomen soft; abdomen nontender Musculoskeletal: Head/Neck/Chest: normocephalic and head atraumatic negative for edema, peripheral pulses intact Skin: no rashes, warm and dry Neurologic: awake; not confused Speech / Cognition: normal speech Psychiatric: A+Ox3, euthymic affect Results & Data Vital Signs (Past 12 Hours) Vital Signs Temp Pulse Pulse Resp BP Pulse Ox 02/24/19 15:27 83 16 94 02/24/19 14:45 37.2 C 92 H 18 111/67 93 02/24/19 13:39 96 H 18 102/61 95 02/24/19 12:42 37 C 88 16 115/69 92 02/24/19 12:13 87 16 107/69 94 02/24/19 11:50 37.3 C 85 16 128/75 95 02/24/19 11:35 89 16 140/79 92 02/24/19 11:25 87 15 145/93 H 92 02/24/19 11:15 36.9 C 86 16 142/86 H 96 02/24/19 11:05 83 18 125/94 93 02/24/19 10:55 81 18 140/92 92 02/24/19 10:45 83 16 154/84 H 95 02/24/19 10:35 89 15 154/74 H 93 02/24/19 10:25 87 15 103/59 L 93 02/24/19 10:18 36.9 C 89 16 90/62 L 96 02/24/19 06:33 37 C 78 20 110/65 93 PG Care Time/CCT Total # of Minutes Spent Total Time Spent with Patient: Total time spent is greater than 50% in coordination of care (as documented) at patient's floor/unit and/or counseling patient:
[2019-02-24] MEDS ORDERED: INSULIN HUMAN REGULAR PER UNIT 5 UNITS in SYRINGE 4.95 ML IV ONE (17:30)
[2019-02-24] MEDS: NICOTINE 7 MG/24 HR TDSY TD SCH ×2 (18:30→20:28)
[2019-02-24] MEDS ORDERED: Nursing to Pharmacy Communication ONE (19:11)
[2019-02-24] MEDS: ZOLPIDEM TARTRATE 10 MG TAB PO SCH (20:49)
[2019-02-24] MEDS: METOPROLOL TARTRATE 50 MG TAB PO SCH (20:50)
[2019-02-24] MEDS: hydroCHLOROthiazide 25 MG TAB PO SCH (20:50)
[2019-02-24] MEDS: DOCUSATE SODIUM/SENNA 50/8.6MG TAB PO SCH (20:50)
[2019-02-24] MEDS: ENALAPRIL MALEATE 10 MG TAB PO SCH (20:51)
[2019-02-24] MEDS: UMECLIDINIUM BROMIDE 62.5MCG/BLISTER 7 PUFFS/INHALER INH SCH (20:51)
[2019-02-24] MEDS: FLUTICASONE/VILANTEROL 200/25MCG 14 PUFFS/INHALER INH SCH (20:51)
[2019-02-24] MEDS ORDERED: FLUTICASONE/VILANTEROL 200/25MCG 14 PUFFS/INHALER INH ONE (21:00)
[2019-02-24] MEDS ORDERED: UMECLIDINIUM BROMIDE 62.5MCG/BLISTER 7 PUFFS/INHALER INH ONE (21:00)
[2019-02-24] MEDS: HYDROmorphone INJ 1 MG/ML SYRINGE IV PRN (23:47)
[2019-02-25] MEDS: KETOROLAC 30 MG/ML VIAL IV SCH ×2 (00:13→05:37)
[2019-02-25] MEDS: OXYCODONE HCL IR 5 MG TAB (IMMEDIATE RELEASE) PO PRN ×5 (02:03→21:13)
[2019-02-25] MEDS: ALBUT/IPRATROP 3MG/0.5MG NEB 3 ML VIAL NEB SCH ×6 (02:06→22:21)
[2019-02-25] MEDS: HYDROmorphone INJ 1 MG/ML SYRINGE IV PRN ×5 (03:10→22:48)
[2019-02-25] MEDS: SODIUM CHLORIDE 0.9% 1000ML 1,000 ML IV SCH (03:11)
[2019-02-25] MEDS: ACETAMINOPHEN 1,000 MG/100 ML VIAL IV PRN (03:14)
[2019-02-25] MEDS: INSULIN ASPART 100 UNITS/ML 3 ML PEN SC SCH ×5 (04:28→21:09)
[2019-02-25] MEDS: POLYETHYLENE (MIRALAX) 17 GM PACK PO SCH ×3 (05:30→17:38)
[2019-02-25 06:14] LABS: Hematocrit (blood only) 28.8 % (37-47); Hemoglobin 9.3 g/dL (12.0-16.0); Immature Granulocytes # (auto) 0.04 K/uL (0.00-0.02); Immature Granulocytes % (auto) 0.4 %; Lymphocytes # (auto) 1.47 K/uL (1.2-3.4); Lymphocytes % (auto) 12.9 %; Mean Corpuscular Hemoglobin 29.7 pg (25-34); Mean Corpuscular Hgb Conc 32.3 g/dL (32-36); Mean Platelet Volume 10.4 fL (7.4-10.4); Monocytes # (auto) 0.64 K/uL (0.11-0.59); Monocytes % (auto) 5.6 %; Neutrophils # (auto) 9.23 K/uL (1.4-6.5); Neutrophils % (auto) 81.1 %; Platelet Count 300 K/uL (130-400); RDW Standard Deviation 54.1 fL (36.4-46.3); Red Blood Count 3.13 M/uL (4.2-5.4); White Blood Count 11.38 K/uL (4.8-10.8)
[2019-02-25 06:42] LABS: BUN Creatinine Ratio 16.4 (10-20); Calcium 8.9 mg/dl (8.5-10.1); Creatinine Clr Calc Pharmacy 65.4 ml/min; Est GFR (African American) 78.9; Potassium 4.6 mmol/L (3.5-5.1)
--- NOTE | 2019-02-25 08:21 | Anesthesiology Progress Note ---
Date of Service February 25, 2019 Anesthesia Post Procedure Vital Signs Vital Signs: Temp Pulse Pulse Resp BP BP Pulse Ox 02/25/19 07:35 38.6 C H 81 16 93/56 L 93 02/25/19 07:08 74 16 94 02/25/19 03:20 36.9 C 83 18 102/65 92 02/24/19 22:52 93 H 16 93 02/24/19 22:02 37.2 C 96 H 18 102/62 90 02/24/19 20:19 37.5 C 97 H 18 102/65 91 02/24/19 19:11 94 H 16 90 02/24/19 17:36 91 02/24/19 15:27 83 16 94 02/24/19 14:45 37.2 C 92 H 18 111/67 93 02/24/19 13:39 96 H 18 102/61 95 02/24/19 12:42 37 C 88 16 115/69 92 02/24/19 12:13 87 16 107/69 94 02/24/19 11:50 37.3 C 85 16 128/75 95 02/24/19 11:35 89 16 140/79 92 02/24/19 11:25 87 15 145/93 H 92 02/24/19 11:15 36.9 C 86 16 142/86 H 96 02/24/19 11:05 83 18 125/94 93 02/24/19 10:55 81 18 140/92 92 02/24/19 10:45 83 16 154/84 H 95 02/24/19 10:35 89 15 154/74 H 93 02/24/19 10:25 87 15 103/59 L 93 02/24/19 10:18 36.9 C 89 16 90/62 L 96 Pain Intensity Bilateral Leg: Pain Intensity: 8 Back: Pain Intensity: 7 Notes Mental Status: alert / awake / arousable and participated in evaluation Patient Amnestic to Procedure: Yes Nausea / Vomiting: adequately controlled Pain: adequately controlled Airway Patency, RR, SpO2: stable & adequate BP & HR: stable & adequate Hydration State: stable & adequate Anesthetic Complications: no major complications apparent and Pt Satisfied with anesthetic care
[2019-02-25] MEDS ORDERED: AMLODIPINE BESYLATE 5 MG TAB PO SCH (09:00)
[2019-02-25] MEDS: METOPROLOL TARTRATE 50 MG TAB PO SCH ×2 (09:15→20:59)
[2019-02-25] MEDS: ENALAPRIL MALEATE 10 MG TAB PO SCH ×2 (09:16→21:01)
[2019-02-25] MEDS: NICOTINE 7 MG/24 HR TDSY TD SCH (09:16)
[2019-02-25] MEDS: PREGABALIN 100 MG CAP PO SCH ×3 (09:22→21:04)
[2019-02-25] MEDS ORDERED: Nursing to Pharmacy Communication ONE (17:37)
--- NOTE | 2019-02-25 19:30 | Hospitalist Progress Note ---
Date of Service February 25, 2019 Assessment & Plan (1) Radicular low back pain: - S/P Decompression/Fusion/Laminectomy approx. one month ago but unfortunately had ongoing neurological pain and imaging showed migration of hardware - Now S/P repair and of hardware on 02/24 - EBL 150 cc; Hgb 9.3 which is dropped from pre-op testing however similar to readings from previous admission for surgery but will monitor - Considering SNF on D/C - Febrile this AM but currently resolved - given post-operative state possibly atelectasis based given limited deep breathing from pain (2) Hypertension: - STABLE - Continue Norvasc 10 mg, Benazepril 20 mg BID, HCTZ 25 mg daily, and metoprolol 50 mg BID (3) Chronic obstructive pulmonary disease: - No acute exacerbation - does have some wheezing on exam but she states she normally wheezes - Nebs PRN; Fluticasone/Vilanterol daily; umeclidinium bromide daily (4) Diabetes mellitus, type 2: - Cover with SSI - glycemic management following (5) Peripheral neuropathy: - Continue pregabalin 200 mg TID (6) Tobacco use disorder: - Requests nicotine patch Supervising Physician Co-Signing Physician Notes Attending Attestation - Chart reviewed in detail, care plan d/w NEELAM Nicholson. I agree w/ the xiao components of her documentation. Additional diagnosis -- acute blood loss anemia. Initial Hb 12.4; today's Hb 9.3. Consider Fe supplementation at discharge. would repeat Hb tomorrow for stability purposes. Gary Lopez MD Subjective Reports overall feeling okay today. Having some increased back pain but states overall the pain regimen is helping. Reports her breathing feels well at this time no worsening symptoms. Did have a fever this AM and did advise to try and take deep breath to help prevent atelectasis as possibly that is contributing. Tolerating a diet. Hasn't moved her bowels in a couple days but she said 2-3 days is not uncommon for her. She verbalizes no new complaints Review of Systems Constitutional: no fever, no chills and no fatigue Ear, Nose, Mouth, Throat: no sore throat and no dysphagia Respiratory: no cough and no dyspnea Cardiovascular: no chest pain, no palpitations and no edema Gastrointestinal: + nausea; no abdominal pain, no vomiting, no constipation and no diarrhea/loose stools Genitourinary: no dysuria Musculoskeletal: + back pain Integumentary: no rash Physical Exam Constitutional: WD/WN, vitals as above Eyes: + anicteric sclerae ENMT: Ears: no hearing impairment Neck: trachea midline Respiratory: normal respiratory effort Auscultation: + wheezes Cardiovascular: RRR, no murmur, no edema Gastrointestinal (Abdomen): Inspection/Auscultation: normal bowel sounds Percussion/Palpation: abdomen soft; abdomen nontender Musculoskeletal: Head/Neck/Chest: normocephalic and head atraumatic Extremities: no cyanosis and no clubbing Skin: no rashes, warm and dry Neurologic: moves all extremities Psychiatric: A+Ox3, euthymic affect Results & Data Vital Signs (Past 12 Hours) Vital Signs Temp Pulse Pulse Resp BP BP Pulse Ox 02/25/19 19:20 91 H 18 90 02/25/19 16:19 91 H 18 92 02/25/19 15:18 36.8 C 93 H 17 104/65 92 02/25/19 11:40 36.9 C 90 17 127/69 90 02/25/19 11:15 86 16 92 02/25/19 07:35 38.6 C H 81 16 93/56 L 93 PG Care Time/CCT Total # of Minutes Spent Total Time Spent with Patient: Total time spent is greater than 50% in coordination of care (as documented) at patient's floor/unit and/or counseling patient:
[2019-02-25] MEDS: UMECLIDINIUM BROMIDE 62.5MCG/BLISTER 7 PUFFS/INHALER INH SCH (20:58)
[2019-02-25] MEDS: ACETAMINOPHEN 500 MG TAB PO SCH (20:58)
[2019-02-25] MEDS: ZOLPIDEM TARTRATE 10 MG TAB PO SCH (20:58)
[2019-02-25] MEDS: FLUTICASONE/VILANTEROL 200/25MCG 14 PUFFS/INHALER INH SCH (20:58)
[2019-02-25] MEDS: DOCUSATE SODIUM/SENNA 50/8.6MG TAB PO SCH (21:00)
[2019-02-25] MEDS: hydroCHLOROthiazide 25 MG TAB PO SCH (21:00)
[2019-02-25] MEDS ORDERED: INSULIN GLARGINE SOLOSTAR 100 UNITS/ML 3 ML PEN SQ SCH (21:00)
[2019-02-26] MEDS ORDERED: INSULIN ASPART 100 UNITS/ML 3 ML PEN SC SCH (02:00)
[2019-02-26] MEDS: ALBUT/IPRATROP 3MG/0.5MG NEB 3 ML VIAL NEB SCH ×2 (02:09→07:36)
[2019-02-26] MEDS: ACETAMINOPHEN 500 MG TAB PO SCH (03:19)
[2019-02-26] MEDS: OXYCODONE HCL IR 5 MG TAB (IMMEDIATE RELEASE) PO PRN ×2 (05:32→09:49)
[2019-02-26 06:45] LABS: Basophils # (auto) 0.02 K/uL (0-0.2); Basophils % (auto) 0.2 %; Eosinophils # (auto) 0.07 K/uL (0-0.5); Eosinophils % (auto) 0.6 %; Hematocrit (blood only) 31.7 % (37-47); Hemoglobin 9.9 g/dL (12.0-16.0); Immature Granulocytes # (auto) 0.03 K/uL (0.00-0.02); Immature Granulocytes % (auto) 0.3 %; Lymphocytes # (auto) 3.32 K/uL (1.2-3.4); Lymphocytes % (auto) 30.6 %; Mean Corpuscular Hemoglobin 28.9 pg (25-34); Mean Corpuscular Hgb Conc 31.2 g/dL (32-36); Mean Corpuscular Volume 92.7 fL (80-100); Mean Platelet Volume 10.3 fL (7.4-10.4); Monocytes # (auto) 0.92 K/uL (0.11-0.59); Monocytes % (auto) 8.5 %; Neutrophils # (auto) 6.48 K/uL (1.4-6.5); Neutrophils % (auto) 59.8 %; Platelet Count 314 K/uL (130-400); RDW Coefficient of Variation 16.3 % (11.5-14.5); RDW Standard Deviation 55.4 fL (36.4-46.3); Red Blood Count 3.42 M/uL (4.2-5.4); White Blood Count 10.84 K/uL (4.8-10.8)
[2019-02-26 07:25] LABS: BUN Creatinine Ratio 22.9 (10-20); Calcium 8.8 mg/dl (8.5-10.1); Creatinine Clr Calc Pharmacy 60.7 ml/min; Est GFR (Non-African American) 62.2; Potassium 3.9 mmol/L (3.5-5.1)
[2019-02-26] MEDS: INSULIN ASPART 100 UNITS/ML 3 ML PEN SC SCH (09:04)
[2019-02-26] MEDS: NICOTINE 7 MG/24 HR TDSY TD SCH (09:05)
[2019-02-26] MEDS: METOPROLOL TARTRATE 50 MG TAB PO SCH (09:05)
[2019-02-26] MEDS: PREGABALIN 100 MG CAP PO SCH (09:12)
--- NOTE | 2019-02-26 09:56 | Discharge Summary ---
She is alert, oriented. Pain controlled, up ambulatory. She was admitted 2 days ago for reconstructive spinal surgery and seems to be doing pretty well, still short run, still has a long way to go. We debated rehab versus home with home health. The patient adamantly wants to go home, refuses rehab placement. DISPOSITION: We will let her go home later on this morning. She has prescription at home for pain. She has a prescription called in for pain. She has a back brace for support, she has a prescription for hospital bed. She has a prescription for a bedside elevated toilet seat and a rolling walker. Her dressing should be changed about every 48 hours. We should see her back in the office in approximately 2 weeks for suture removal. Call if any problems arise.
== END 2019-02-26 11:16 | disposition home health service (06) | DRG 460 ==
LOC: ASU 05:56 → INTOOBSV 10:21 → 3E 10:21